=== PATIENT | male | born 1940 | race Caucasian/White ===

== ENCOUNTER 2017-12-15 09:52 | Inpatient (IN) | payer MEDICARE, SELFPAY ==
[2017-12-15 09:58] VITALS: BP 117/59; PULSE 103; RESP 16; TEMP 36.9; O2SAT 92; BMI 31.1
--- NOTE | 2017-12-15 10:17 | XR_ITS ---
XR chest 2V HISTORY: ITS.REASON: dyspnea ORDERING PHYSICIAN: Paul Carranza MD PATIENT AGE: 77 years COMPARISON: 03/20/2017 FINDINGS: The cardiomediastinal silhouette and pulmonary vascularity are within normal limits. There is chronic coarsening of the bronchovascular markings with some superimposed increased density in the right lung base consistent with atelectasis or infiltrate. In addition, there is made millimeter nodular opacity in left perihilar region posterolaterally to overlapping vessel. No acute bony anomalies. No effusions. IMPRESSION: Chronic change/COPD with right lower lobe atelectasis or infiltrate. Left perihilar nodular density which may be related to overlapping vessel and may be confirmed with follow-up
[2017-12-15 10:50] VITALS: PULSE 85; PULSE 93
[2017-12-15 12:11] LABS: Basophils # 0.1 K/mm3 (0-0.2); Basophils % 0.2 % (0.1-2.0); Eosinophils % 0.2 % (0.1-12.0); Hematocrit 37.3 % (42.0-52.0); Hemoglobin 11.4 g/dL (14.1-18.0); Lymphocytes # 1.8 K/mm3 (0.7-4.5); Lymphocytes % 7.7 K/mm3 (10-50); Mean Corpuscular HGB Conc 30.5 g/dL (31.8-35.4); Mean Corpuscular Hemoglobin 27.6 pg (27.0-31.2); Mean Corpuscular Volume 90.4 fl (80-94); Mean Platelet Volume 9.1 fl (7.4-10.4); Monocytes # 1.2 K/mm3 (0.1-1.0); Neutrophils # 20.6 K/mm3 (1.8-7.8); Neutrophils % 86.9 % (37.0-80.0); Platelet Count 338 K/mm3 (142-424); Red Blood Count 4.13 M/mm3 (4.60-6.20); White Blood Count 23.6 K/mm3 (4.8-10.8)
[2017-12-15 12:13] LABS: MANUAL DIFFERENTIAL MANUAL DIFFERENTIAL (MANUAL DIFF)
[2017-12-15 12:19] LABS: Alanine Aminotransferase 43 U/L (12-78); Albumin Level 3.2 gm/dL (3.4-5.0); Albumin/Globulin Ratio 0.8 (1.1-1.8); Alkaline Phosphatase 69 U/L (46-116); Anion Gap 15.3 mEq/L (5-15); Aspartate Amino Transferase 32 U/L (15-37); Bilirubin,Total 0.4 mg/dL (0.2-1.0); Blood Urea Nitrogen 17 mg/dL (7-18); Calcium 8.4 mg/dL (8.5-10.1); Carbon Dioxide 28 mmol/L (21.0-32.0); Chloride 105 mmol/L (98-107); Creatinine Clearance Estimated 66 mL/min (0-300); Creatinine,Serum 1.29 mg/dL (0.70-1.30); Estimated Glomerular Filt Rate 54 ml/min (>60); GFR (African American) 66 ML/MIN (>60); Globulin 3.8 gm/dl (1.3-3.2); Glucose 185 mg/dL (74-106); Potassium 3.3 mmoL/L (3.5-5.1); Sodium 145 mmol/L (136-145)
[2017-12-15 12:27] LABS: Lactic Acid 3.2 mmol/L (0.4-2.0); Reflex Lactic Add Lactic Reflex
[2017-12-15 12:34] LABS: CKMB Relative Index 0.7 U/L (0-4.0); Creatine Kinase 86 U/L (39-308); Creatine Kinase MB 0.6 mg/ml (0.0-3.6); Troponin I < 0.02 ng/ml (0.00-0.06)
[2017-12-15 12:35] LABS: Lymphocytes % 10 % (10-50); Monocytes % 5 % (2-9); Neutrophils % 84 % (42-76); Platelet Estimate Normal; RBC Morphology Normal; Total Cells Counted 100
--- NOTE | 2017-12-15 12:39 | HMH.EDSOB ---
ED Disposition Clinical Impression: Hypoxia RLL pneumonia Qualifiers: Pneumonia type: due to unspecified organism Qualified Code(s): J18.1 - Lobar pneumonia, unspecified organism Leukocytosis Qualifiers: Leukocytosis type: other Qualified Code(s): D72.828 - Other elevated white blood cell count Disposition: Admitted As Inpatient Condition on Discharge: Fair Time of Disposition: 12:39 - Critical Care Critical Care Time: No Attestation: On 12/15/17, the high probability of a clinically significant, sudden or life threatening deterioration of the following system(s) required my full and direct attention, intervention and personal management. The time I documented below is in addition to time spent performing reported procedures but includes the following listed in this critical care notation. Medical Decision Making - Medical Records Medical records reviewed: Yes: I reviewed the patient's medical records. Vital Signs: 12/15/17 09:58 12/15/17 10:50 12/15/17 13:26 Temperature 98.4 F 98.6 F Temperature Source Oral Temporal Artery Scan Pulse Rate 85 70 Pulse Rate [Right Radial] 103 H Respiratory Rate 16 18 Blood Pressure 118/70 Blood Pressure [Right Arm] 117/59 Blood Pressure Mean [Right Arm] 78 Blood Pressure Source Automatic Cuff Blood Pressure Source [Right Arm] Automatic Cuff Blood Pressure Position Sitting Blood Pressure Position [Right Arm] Sitting 02 Sat by Pulse Oximetry 92 L Oxygen Delivery Method Room Air Room Air - Lab Data Lab results reviewed: Yes: I reviewed the patient's lab results. Lab Results 12/15/17 11:50: WBC 23.6 H*, RBC 4.13 L, Hgb 11.4 L, Hct 37.3 L, MCV 90.4, MCH 27.6, MCHC 30.5 L, RDW 14.0, Plt Count 338, MPV 9.1, Neut % (Auto) 86.9 H, Lymph % (Auto) 7.7 L, [place] % (Auto) 5.0, Eos % (Auto) 0.2, Baso % (Auto) 0.2, Neut # (Auto) 20.6 H, Lymph # (Auto) 1.8, [place] # (Auto) 1.2 H, Eos # (Auto) 0.0, Baso # (Auto) 0.1, Total Counted 100, Neutrophils % (Manual) 84 H, Lymphocytes % (Manual) 10, Monocytes % (Manual) 5, Metamyelocytes % 1.0, Platelet Estimate Normal, RBC Morphology Normal 12/15/17 11:50: Sodium 145, Potassium 3.3 L, Chloride 105, Carbon Dioxide 28, Anion Gap 15.3 H, BUN 17, Creatinine 1.29, Estimated Creat Clear 66, Estimated GFR 54 L, Est GFR ( Amer) 66, Glucose 185 H, Calcium 8.4 L, Total Bilirubin 0.4, AST 32, ALT 43, Alkaline Phosphatase 69, Total Protein 7.0, Albumin 3.2 L, Globulin 3.8 H, Albumin/Globulin Ratio 0.8 L 12/15/17 11:50: Total Creatine Kinase 86, CK-MB (CK-2) 0.6, CK-MB (CK-2) Rel Index 0.7, Troponin I < 0.02 12/15/17 11:50: Lactic Acid 3.2 H Result diagrams: 12/15/17 11:50 12/15/17 11:50 Orders (Tests/Meds): ED MEDICATIONS Generic Name Dose Route Start Last Admin Trade Name Freq PRN Reason Stop Dose Admin Acetaminophen 650 mg 12/15/17 13:49 12/16/17 00:18 Acetaminophen 325mg Tab PO 01/14/18 13:48 650 mg Q4HP PRN Administration As Needed for Fever or Pain Amlodipine Besylate 5 mg 12/16/17 09:00 12/16/17 09:03 Norvasc 5mg Tablet PO 01/15/18 08:59 5 mg DAILY RITO Administration Blood Glucose Test Strips 1 each 12/15/17 16:30 12/16/17 11:46 Fsbs (Bedside Glucose), Results Only !! FS 01/14/18 16:29 1 each ACHS RITO Administration Fluticasone Propionate 2 spr 12/16/17 09:00 12/16/17 09:02 Flonase 50mcg Nasal [place] 16gm NS 01/15/18 08:59 2 spray DAILY RITO Administration Guaifenesin 200 mg 12/16/17 07:36 12/16/17 09:15 Robitussin 200mg/10ml Syrup Udc PO 01/15/18 07:35 200 mg Q4HP PRN Administration Cough Hydrochlorothiazide 25 mg 12/16/17 09:00 12/16/17 09:03 Hctz 25mg Tablet PO 01/15/18 08:59 25 mg DAILY RITO Administration Azithromycin 500 mg/ Sodium 250 mls @ 250 mls/hr 12/16/17 12:45 12/16/17 13:32 Chloride IV 12/29/17 12:44 250 mls/hr Q24H RITO Administration Protocol Ceftriaxone Sodium 1 gm/ 50 mls @ 100 mls/hr 12/16/17
[2017-12-15 13:26] VITALS: BP 118/70; PULSE 70; RESP 18; TEMP 37; O2SAT 93
[2017-12-15 13:51] VITALS: BP 120/72; PULSE 96; RESP 18; TEMP 36.9; O2SAT 94; BMI 36.4
--- NOTE | 2017-12-15 15:00 | HMH.HP ---
*Admission Date: 12/15/17 *Chief complaint: shortness of breath *History of present illness: 77 year old male presents with shortness of breath and non-productive cough that has increased over the last few days. He reports subjective temps. + sore throat. No other ENT symptoms. No GI symptoms. In the ED, he was found to be mildly hypoxic at 90% on RA. He was noted to have significant leukocytosis with WBC 23.6. CXR showed RLL pneumonia. Patient was admitted for IV antibiotics. [facility] History I have reviewed the patient's past medical history: Yes Medical History: Reports:: Diabetes Mellitus Type 2 Denies:: Cancer, Diabetes Mellitus Type 1, MRSA Amputation: No Fractures: No - *Social History Educational Level: Completed High School Smoking Status: Never smoker Alcohol Intake: never - Psychiatric History Expresses thoughts of harming self/others: None Suicide Plan Description: No Plan Review of Systems - Review of Systems Review of systems:: pertinent systems reviewed and negative unless documented below - Constitutional Reports fever(s), Reports weakness - ENT Reports sore throat - *Respiratory Reports cough, Reports shortness of breath Meds Home Medications Medication Instructions Recorded Confirmed Type Amlodipine Besylate [Norvasc 5mg 5 mg PO DAILY 12/15/17 12/15/17 History tablet] Esomeprazole Magnesium [Nexium] 20 mg PO DAILY 12/15/17 12/15/17 History Insulin Aspart [Novolog] 10 unit SQ DAILY 12/15/17 12/15/17 History Insulin Aspart [Novolog] 12 unit SQ ACHS 12/15/17 12/15/17 History Insulin Degludec [Tresiba 22 unit SQ [facility] 12/15/17 12/15/17 History Flextouch U-100] Losartan Potassium [Cozaar] 100 mg PO DAILY 12/15/17 12/15/17 History Metformin HCl [Metformin 850mg 1,000 mg PO BID 12/15/17 12/15/17 History Tablet] hydroCHLOROthiazide [HCTZ 25mg 25 mg PO DAILY 12/15/17 12/15/17 History tab] Allergies Allergy/AdvReac Type Severity Reaction Status Date / Time No Known Allergies Allergy Unverified 10/27/17 14:38 Exam Vital signs and Labs for Last 24 Hours: Temp Pulse Resp BP Pulse Ox 98.5 F 96 H 18 120/72 94 L 02/06/18 13:51 12/15/17 13:51 12/15/17 13:51 12/15/17 13:51 12/15/17 13:51 I & O for Last 24 hours: Intake & Output 12/13/17 12/14/17 12/15/17 12/16/17 11:59 11:59 11:59 11:59 Weight 219 lb 4 oz Narrative: Alert and oriented x3. Scattered rhonchi on right. Crackles RLL. Rate and rhythm regular. Trace ankle edema. Pulses 2+ bilaterally. Abdomen soft and nontender. Normoactive BS. Pharynx without erythema. No cervical LAD. Nose clear Assessment and Plan (1) Leukocytosis Current visit: Yes Status: Acute Qualifiers: Leukocytosis type: other Qualified Code(s): D72.828 - Other elevated white blood cell count Category: Medical Code(s): D72.829 - Elevated white blood cell count, unspecified (2) RLL pneumonia Current visit: Yes Status: Acute Qualifiers: Pneumonia type: due to unspecified organism Qualified Code(s): J18.1 - Lobar pneumonia, unspecified organism Category: Medical Code(s): J18.1 - Lobar pneumonia, unspecified organism (3) Diabetes Current visit: Yes Status: Chronic Qualifiers: Diabetes mellitus type: type 2 Category: Medical Code(s): E11.9 - Type 2 diabetes mellitus without complications - Assessment and plan all Dx Assessment and Plan for all problems:: Continue IV antibiotics and duonebs. Obtain sputum if able to produce. Blood cultures pending.
--- NOTE | 2017-12-15 15:05 | P.HP_ITS ---
*Admission Date: 12/15/17 *Chief complaint: shortness of breath *History of present illness: 77 year old male presents with shortness of breath and non-productive cough that has increased over the last few days. He reports subjective temps. + sore throat. No other ENT symptoms. No GI symptoms. In the ED, he was found to be mildly hypoxic at 90% on RA. He was noted to have significant leukocytosis with WBC 23.6. CXR showed RLL pneumonia. Patient was admitted for IV antibiotics. [facility] History I have reviewed the patient's past medical history: Yes Medical History: Reports:: Diabetes Mellitus Type 2 Denies:: Cancer, Diabetes Mellitus Type 1, MRSA Amputation: No Fractures: No - *Social History Educational Level: Completed High School Smoking Status: Never smoker Alcohol Intake: never - Psychiatric History Expresses thoughts of harming self/others: None Suicide Plan Description: No Plan Review of Systems - Review of Systems Review of systems:: pertinent systems reviewed and negative unless documented below - Constitutional Reports fever(s), Reports weakness - ENT Reports sore throat - *Respiratory Reports cough, Reports shortness of breath Meds Home Medications Medication Instructions Recorded Confirmed Type Amlodipine Besylate [Norvasc 5mg 5 mg PO DAILY 12/15/17 12/15/17 History tablet] Esomeprazole Magnesium [Nexium] 20 mg PO DAILY 12/15/17 12/15/17 History Insulin Aspart [Novolog] 10 unit SQ DAILY 12/15/17 12/15/17 History Insulin Aspart [Novolog] 12 unit SQ ACHS 12/15/17 12/15/17 History Insulin Degludec [Tresiba 22 unit SQ [facility] 12/15/17 12/15/17 History Flextouch U-100] Losartan Potassium [Cozaar] 100 mg PO DAILY 12/15/17 12/15/17 History Metformin HCl [Metformin 850mg 1,000 mg PO BID 12/15/17 12/15/17 History Tablet] hydroCHLOROthiazide [HCTZ 25mg 25 mg PO DAILY 12/15/17 12/15/17 History tab] Allergies Allergy/AdvReac Type Severity Reaction Status Date / Time No Known Allergies Allergy Unverified 10/27/17 14:38 Exam Vital signs and Labs for Last 24 Hours: Temp Pulse Resp BP Pulse Ox 98.5 F 96 H 18 120/72 94 L 02/06/18 13:51 12/15/17 13:51 12/15/17 13:51 12/15/17 13:51 12/15/17 13:51 I & O for Last 24 hours: Intake & Output 12/13/17 12/14/17 12/15/17 12/16/17 11:59 11:59 11:59 11:59 Weight 219 lb 4 oz Narrative: Alert and oriented x3. Scattered rhonchi on right. Crackles RLL. Rate and rhythm regular. Trace ankle edema. Pulses 2+ bilaterally. Abdomen soft and nontender. Normoactive BS. Pharynx without erythema. No cervical LAD. Nose clear Assessment and Plan (1) Leukocytosis Current visit: Yes Status: Acute Qualifiers: Leukocytosis type: other Qualified Code(s): D72.828 - Other elevated white blood cell count Category: Medical Code(s): D72.829 - Elevated white blood cell count, unspecified (2) RLL pneumonia Current visit: Yes Status: Acute Qualifiers: Pneumonia type: due to unspecified organism Qualified Code(s): J18.1 - Lobar pneumonia, unspecified organism Category: Medical Code(s): J18.1 - Lobar pneumonia, unspecified organism (3) Diabetes Current visit: Yes Status: Chronic Qualifiers: Diabetes mellitus type: type 2 Category: Medical Code(s): E11.9 - Type 2 diabetes [place]
[2017-12-15 15:17] VITALS: BP 108/51; PULSE 94; RESP 18; TEMP 37.8; O2SAT 90
[2017-12-15 15:19] LABS: CKMB Relative Index 0.8 U/L (0-4.0); Creatine Kinase 84 U/L (39-308); Creatine Kinase MB 0.7 mg/ml (0.0-3.6); Troponin I < 0.02 ng/ml (0.00-0.06)
[2017-12-15 15:32] LABS: Lactic Acid Follow Up (RFLX 1) 3.3 (0.4-2.0)
[2017-12-15 17:10] LABS: Reflex Lactic (2 hrs) Add Lactic Reflex
[2017-12-15 17:53] LABS: Lactic Acid Follow up (RFLX 2) 2.1 (0.4-2.0)
[2017-12-15 20:00] VITALS: BP 120/47; PULSE 106; RESP 22; TEMP 37.1; O2SAT 93
[2017-12-15 21:38] LABS: POC Glucose,Bedside 346 mg/dL
[2017-12-16] VITALS (10 sets, daily range): BP systolic 120–152; BP diastolic 59–77; PULSE 80–110; RESP 16–20; TEMP 36.8–38; O2SAT 90–96; BMI 36.4
--- NOTE | 2017-12-16 00:50 | PC.NURSE ---
clarified with Willy Reyes glargine instead of pt home medication Degludec flex touch which is not available at hospital. clarified with pt and spouse only takes 22 units at bedtime sq also Metformin at bedtime. Takes Novolog 12 units sq in the a.m only with metformin
--- NOTE | 2017-12-16 03:37 | PC.NURSE ---
Laying in bed resting, has slept most of night. spouse at bedside. Lungs have bilat rhonchi. Denies soa. resp even and nonlabored. Had a temp earlier of 100.4 oral. resolved with Tylenol. EMAR will need to be addressed this a.m for 0900 medications when MD rounds for home meds. Has been up several times to bathroom, tolerated well. IV is patent. Refuses to wear teds, educated on vte prophylaxis. Verified understanding. Has no needs at this time. Bed locked in low position, side rales up x 2. Call light within reach. Will Continue to monitor.
[2017-12-16 06:30] LABS: POC Glucose,Bedside 216 mg/dL
--- NOTE | 2017-12-16 07:18 | HMH.PHAVTE ---
[facility] Pharmacy VTE Monitoring - Patient Demographics Admission date: 12/15/17 Report Date: 12/16/17 (n) Time: 07:18 Allergies/Adverse Reactions: Patient Allergies No Known Allergies Allergy (Unverified 10/27/17 14:38) Height: 1.65 m Weight: 99.45 kg Patient Problems: Current Active Problems RLL pneumonia (Acute) Leukocytosis (Acute) Hypoxia (Acute) Diabetes (Chronic) - VTE Risk Labs: VTE Related Lab Results Hgb 11.4 g/dL (14.1-18.0) L 12/15/17 11:50 Hct 37.3 % (42.0-52.0) L 12/15/17 11:50 Plt Count 338 K/mm3 (142-424) 12/15/17 11:50 BUN 17 mg/dL (7-18) 12/15/17 11:50 Creatinine 1.29 mg/dL (0.70-1.30) 12/15/17 11:50 Estimated Creat Clear 66 mL/min (0-300) 12/15/17 11:50 VTE Score: 2 VTE Risk Level: Very Low Risk Clinical Trial Participant: No - Prophylaxis VTE Prophylaxis Ordered?: Yes Types of VTE Prophylaxis: TEDS Knee High
--- NOTE | 2017-12-16 07:40 | HMH.ACPN2 ---
Internal Medicine - PN: Subj *Date: 12/16/17 *Time: 07:40 Interval history: Patient complains of a dry cough overnight but otherwise feels well, has eaten well. His glucose has been high as well, expectedly given his admission with steroids. Exam Vital signs and Labs for Last 24 Hours: Temp Pulse Resp BP Pulse Ox 99.1 F 105 H 18 123/59 91 L 12/16/17 03:44 12/16/17 03:44 12/16/17 03:44 12/16/17 03:44 12/16/17 03:44 Laboratory Results - last 24 hr 12/15/17 14:20: Total Creatine Kinase 84, CK-MB (CK-2) 0.7, CK-MB (CK-2) Rel Index 0.8, Troponin I < 0.02 12/15/17 15:10: Lactic Acid Fup @ 4Hr 3.3 H 12/15/17 17:25: Lactic Acid Fup @ 2Hr 2.1 H 12/15/17 20:02: POC Glucose 346 12/16/17 06:08: POC Glucose 216 I & O for Last 24 hours: Intake & Output 12/13/17 12/14/17 12/15/17 12/16/17 11:59 11:59 11:59 11:59 Intake Total 360 / 360 Output Total 500 / 500 Balance -140 / -140 Weight 219 lb 4 oz Narrative: Patient up on the side of the bed, eating well. Some rhonchi bilaterally but otherwise good air movement. No wheezing. No crackles. No edema noted. Assessment and Plan (1) Leukocytosis Current visit: Yes Status: Acute Qualifiers: Leukocytosis type: other Qualified Code(s): D72.828 - Other elevated white blood cell count Category: Medical Code(s): D72.829 - Elevated white blood cell count, unspecified (2) RLL pneumonia Current visit: Yes Status: Acute Qualifiers: Pneumonia type: due to unspecified organism Qualified Code(s): J18.1 - Lobar pneumonia, unspecified organism Category: Medical Code(s): J18.1 - Lobar pneumonia, unspecified organism (3) Diabetes Current visit: Yes Status: Chronic Qualifiers: Diabetes mellitus type: type 2 Category: Medical Code(s): E11.9 - Type 2 diabetes mellitus without complications - Assessment and plan all Dx Assessment and Plan for all problems:: Overall improving. Restart home medications. Nasal spray and cough medicine. Possible discharge home tomorrow.
[2017-12-16 07:42] LABS: POC Glucose,Bedside 204 mg/dL
[2017-12-16 11:56] LABS: POC Glucose,Bedside 304 mg/dL
[2017-12-16 17:31] LABS: POC Glucose,Bedside 301 mg/dL
--- NOTE | 2017-12-16 18:44 | PC.NURSE ---
[PAATIENT HAS HAD A GOOD DAY. REMAINS AT BEDSIDE. PATIENT LUNGS STILL HAVE SOME RONCHI. HE HAS BEEN INDEPENDENT RINGING OUT NEEDED. NO O2 NEEDED AT THIS TIME. VSS WILL CONTINUE TO MONITOR.
[2017-12-16 20:25] LABS: POC Glucose,Bedside 251 mg/dL
[2017-12-17 03:38] VITALS: BP 151/73; PULSE 91; RESP 20; TEMP 36.7; O2SAT 93
--- NOTE | 2017-12-17 04:32 | PC.NURSE ---
PATIENT HAS BEEN SLEEPING WELL THIS SHIFT. HE CONTINUES WITH A HACKY, INTERMITTEN COUGH WITH SMALL AMOUNTS OF SPUTUM PER PATIENT REPORT. PATIENT HAS REMAINED ON ROOM AIR THIS SHIFT. HE HAS SOME MILD SOA AMBULATING TO AND FROM RESTROOM, HOWEVER NO OTHER PROBLEMS NOTED AT THIS TIME. VSS. WILL CONTINUE TO MONITOR. SAFETY MEASURES IN PLACE, CALL LIGHT IN REACH.
[2017-12-17 06:32] LABS: POC Glucose,Bedside 255 mg/dL
[2017-12-17 07:01] LABS: Basophils % 0.4 % (0.1-2.0); Eosinophils # 0.2 K/mm3 (0.0-0.4); Eosinophils % 1.7 % (0.1-12.0); Hemoglobin 10.3 g/dL (14.1-18.0); Lymphocytes # 1.8 K/mm3 (0.7-4.5); Lymphocytes % 16.4 K/mm3 (10-50); Mean Corpuscular HGB Conc 30.3 g/dL (31.8-35.4); Mean Corpuscular Hemoglobin 27.4 pg (27.0-31.2); Mean Corpuscular Volume 90.3 fl (80-94); Monocytes # 0.6 K/mm3 (0.1-1.0); Monocytes % 5.5 % (1.7-9.3); Neutrophils # 8.4 K/mm3 (1.8-7.8); Platelet Count 312 K/mm3 (142-424); Red Blood Count 3.76 M/mm3 (4.60-6.20); White Blood Count 11.1 K/mm3 (4.8-10.8)
[2017-12-17 07:26] LABS: Anion Gap 11.7 mEq/L (5-15); Blood Urea Nitrogen 18 mg/dL (7-18); Carbon Dioxide 28 mmol/L (21.0-32.0); Chloride 109 mmol/L (98-107); Creatinine Clearance Estimated 88 mL/min (0-300); Creatinine,Serum 0.81 mg/dL (0.70-1.30); Estimated Glomerular Filt Rate 93 ml/min (>60); GFR (African American) 112 ML/MIN (>60); Glucose 222 mg/dL (74-106); Potassium 3.7 mmoL/L (3.5-5.1); Sodium 145 mmol/L (136-145)
[2017-12-17 07:36] VITALS: BP 134/73; PULSE 86; RESP 20; TEMP 36.9; O2SAT 95
[2017-12-17 08:00] VITALS: PULSE 86; RESP 20; O2SAT 95
--- NOTE | 2017-12-17 09:04 | HMH.DCSUM ---
General - General Admission date: 12/15/17 Discharge date: 12/17/17 HPI HPI: 77 year old male presents with shortness of breath and non-productive cough that has increased over the last few days. He reports subjective temps. + sore throat. No other ENT symptoms. No GI symptoms. In the ED, he was found to be mildly hypoxic at 90% on RA. He was noted to have significant leukocytosis with WBC 23.6. CXR showed RLL pneumonia. Patient was admitted for IV antibiotics. Objective Vital signs: Temp Pulse Resp BP Pulse Ox 98.4 F 86 20 134/73 95 12/17/17 07:36 12/17/17 07:36 12/17/17 07:36 12/17/17 07:36 12/17/17 07:36 Narrative: Alert and oriented x3. Rate and rhythm regular. Pulses 2+ bilaterally. Lung sounds with scattered loose rhonchi. Abdomen soft and nontender. Hospital Course Hospital Course: Patient was admitted for IV antibiotics. CXR showed RLL pneumonia. He was given rocephin and zithromax infusions. He has had significant improvement of leukocytosis, WBC 11.1 this morning. He is tolerating oral intake well with no GI issues. Oxygen saturations have improved, 93% on RA today. Blood cultures are negative to date. He was unable to produce a sputum sample for culture. Overall, he feels well and is ready for discharge. Discharge home on zithromax and cefdinir. See medication reconciliation for complete list. FU in office with Carmel Gonzalez APRN in 2 days. Results Labs on day of discharge: Labs from last 24 hours 12/17/17 12/17/17 12/17/17 06:35 06:20 06:20 WBC 11.1 H D RBC 3.76 L Hgb 10.3 L Hct 34.0 L MCV 90.3 MCH 27.4 MCHC 30.3 L RDW 14.0 Plt Count 312 MPV 9.0 Neut % (Auto) 76.0 Lymph % (Auto) 16.4 [place] % (Auto) 5.5 Eos % (Auto) 1.7 Baso % (Auto) 0.4 Neut # (Auto) 8.4 H Lymph # (Auto) 1.8 [place] # (Auto) 0.6 Eos # (Auto) 0.2 Baso # (Auto) 0.0 Sodium 145 Potassium 3.7 Chloride 109 H Carbon Dioxide 28 Anion Gap 11.7 BUN 18 Creatinine 0.81 D Estimated Creat Clear 88 Estimated GFR 93 Est GFR ( Amer) 112 D Glucose 222 H POC Glucose 255 12/16/17 12/16/17 12/16/17 20:11 17:21 11:46 WBC RBC Hgb Hct MCV MCH MCHC RDW Plt Count MPV Neut % (Auto) Lymph % (Auto) [place] % (Auto) Eos % (Auto) Baso % (Auto) Neut # (Auto) Lymph # (Auto) [place] # (Auto) Eos # (Auto) Baso # (Auto) Sodium Potassium Chloride Carbon Dioxide Anion Gap BUN Creatinine Estimated Creat Clear Estimated GFR Est GFR ( Amer) Glucose POC Glucose 251 301 304 DS: Diagnosis - Discharge Diagnosis (1) Leukocytosis Status: Acute (2) RLL pneumonia Status: Acute (3) Diabetes Status: Chronic Meds Home Medications Medication Instructions Recorded Confirmed Type Amlodipine Besylate [Norvasc 5mg 5 mg PO DAILY 12/15/17 12/15/17 History tablet] Esomeprazole Magnesium [Nexium] 20 mg PO DAILY 12/15/17 12/15/17 History Insulin Aspart [Novolog] 12 unit SQ AC 12/15/17 12/16/17 History Insulin Degludec [Tresiba 22 unit SQ HS 12/15/17 12/16/17 History Flextouch U-100] Losartan Potassium [Cozaar] 100 mg PO DAILY 12/15/17 12/15/17 History hydroCHLOROthiazide [HCTZ 25mg 25 mg PO DAILY 12/15/17 12/15/17 History tab] Metformin HCl 1,000 mg PO BID 12/16/17 12/16/17 History Allergies Allergy/AdvReac Type Severity Reaction Status Date / Time No Known Allergies Allergy Unverified 10/27/17 14:38 Discharge Plan - Patient Discharge Instructions ACTIVITY: Continue current activity DIET: continue same diet - Follow up Plan Follow up with: Kelly Gonzalez APRN [Primary Care Provider] - 2 days Disposition: Home, Self-Half-Way Medications: Home Medications Medication Instructions Recorded Confirmed Type Amlodipine Besylate [Norvasc
--- NOTE | 2017-12-17 09:08 | P.DS_ITS ---
General - General Admission date: 12/15/17 Discharge date: 12/17/17 HPI HPI: 77 year old male presents with shortness of breath and non-productive cough that has increased over the last few days. He reports subjective temps. + sore throat. No other ENT symptoms. No GI symptoms. In the ED, he was found to be mildly hypoxic at 90% on RA. He was noted to have significant leukocytosis with WBC 23.6. CXR showed RLL pneumonia. Patient was admitted for IV antibiotics. Objective Vital signs: Temp Pulse Resp BP Pulse Ox 98.4 F 86 20 134/73 95 12/17/17 07:36 12/17/17 07:36 12/17/17 07:36 12/17/17 07:36 12/17/17 07:36 Narrative: Alert and oriented x3. Rate and rhythm regular. Pulses 2+ bilaterally. Lung sounds with scattered loose rhonchi. Abdomen soft and nontender. Hospital Course Hospital Course: Patient was admitted for IV antibiotics. CXR showed RLL pneumonia. He was given rocephin and zithromax infusions. He has had significant improvement of leukocytosis, WBC 11.1 this morning. He is tolerating oral intake well with no GI issues. Oxygen saturations have improved, 93% on RA today. Blood cultures are negative to date. He was unable to produce a sputum sample for culture. Overall, he feels well and is ready for discharge. Discharge home on zithromax and cefdinir. See medication reconciliation for complete list. FU in office with Carmel Gonzalez APRN in 2 days. Results Labs on day of discharge: Labs from last 24 hours 12/17/17 12/17/17 12/17/17 06:35 06:20 06:20 WBC 11.1 H D RBC 3.76 L Hgb 10.3 L Hct 34.0 L MCV 90.3 MCH 27.4 MCHC 30.3 L RDW 14.0 Plt Count 312 MPV 9.0 Neut % (Auto) 76.0 Lymph % (Auto) 16.4 [place] % (Auto) 5.5 Eos % (Auto) 1.7 Baso % (Auto) 0.4 Neut # (Auto) 8.4 H Lymph # (Auto) 1.8 [place] # (Auto) 0.6 Eos # (Auto) 0.2 Baso # (Auto) 0.0 Sodium 145 Potassium 3.7 Chloride 109 H Carbon Dioxide 28 Anion Gap 11.7 BUN 18 Creatinine 0.81 D Estimated Creat Clear 88 Estimated GFR 93 Est GFR ( Amer) 112 D Glucose 222 H POC Glucose 255 12/16/17 12/16/17 12/16/17 20:11 17:21 11:46 WBC RBC Hgb Hct MCV MCH MCHC RDW Plt Count MPV Neut % (Auto) Lymph % (Auto) [place] % (Auto) Eos % (Auto) Baso % (Auto) Neut # (Auto) Lymph # (Auto) [place] # (Auto) Eos # (Auto) Baso # (Auto) Sodium Potassium Chloride Carbon Dioxide Anion Gap BUN Creatinine Estimated Creat Clear Estimated GFR Est GFR ( Amer) Glucose POC Glucose 251 301 304 DS: Diagnosis - Discharge Diagnosis (1) Leukocytosis Status: Acute (2) RLL pneumonia Status: Acute (3) Diabetes Status: Chronic Meds Home Medications Medicat
== END 2017-12-17 10:02 | disposition home or self-care (01) | DRG 194 ==
LOC: ER 10:43 → 2ND 12:24
PROVIDERS: Nurse Practitioner Family; Admitting Provider Internal Medicine Adolescent Medicine; Emergency Provider Emergency Medicine; Family Provider Internal Medicine Adolescent Medicine; PCP Nurse Practitioner Family; Visit Provider Internal Medicine Adolescent Medicine
DX: J18.9 Pneumonia, unspecified organism (principal); J44.0 Chronic obstructive pulmonary disease with (acute) lower respiratory infection; E11.9 Type 2 diabetes mellitus without complications; R09.02 Hypoxemia; D72.829 Elevated white blood cell count, unspecified; T38.0X5A Adverse effect of glucocorticoids and synthetic analogues, initial encounter; Y92.239 Unspecified place in hospital as the place of occurrence of the external cause; Z79.4 Long term (current) use of insulin; Z79.899 Other long term (current) drug therapy
CPT/HCPCS: 36415; 71046; 80048; 80053; 82550; 82553; 82962; 83605; 84484; 85007; 85025; 87040; 93005; 93041; 94761; 96365; 99283; J0456

== ENCOUNTER → 2018-03-09 07:00 | Outpatient (CLI) | payer MEDICARE, SELFPAY ==
[2018-03-09 07:24] LABS: Basophils # 0.1 K/mm3 (0-0.2); Basophils % 0.6 % (0.1-2.0); Eosinophils # 0.2 K/mm3 (0.0-0.4); Eosinophils % 2.6 % (0.1-12.0); Hematocrit 40.1 % (42.0-52.0); Hemoglobin 12.3 g/dL (14.1-18.0); Lymphocytes # 1.9 K/mm3 (0.7-4.5); Lymphocytes % 21.3 K/mm3 (10-50); Mean Corpuscular HGB Conc 30.5 g/dL (31.8-35.4); Mean Corpuscular Hemoglobin 27.3 pg (27.0-31.2); Mean Corpuscular Volume 89.2 fl (80-94); Mean Platelet Volume 9.2 fl (7.4-10.4); Monocytes # 0.6 K/mm3 (0.1-1.0); Monocytes % 7.1 % (1.7-9.3); Neutrophils % 68.4 % (37.0-80.0); Platelet Count 367 K/mm3 (142-424); Red Cell Distribution Width 14.5 % (11.5-17.5); White Blood Count 8.7 K/mm3 (4.8-10.8)
[2018-03-09 07:44] LABS: Hemoglobin A1C 8.7 % (0.0-7.0)
[2018-03-09 08:32] LABS: Alanine Aminotransferase 31 U/L (12-78); Albumin Level 3.7 gm/dL (3.4-5.0); Albumin/Globulin Ratio 1.1 (1.1-1.8); Alkaline Phosphatase 78 U/L (46-116); Anion Gap 9.9 mEq/L (5-15); Aspartate Amino Transferase 25 U/L (15-37); Bilirubin,Total 0.4 mg/dL (0.2-1.0); Blood Urea Nitrogen 16 mg/dL (7-18); Calcium 9.5 mg/dL (8.5-10.1); Carbon Dioxide 33 mmol/L (21.0-32.0); Chloride 107 mmol/L (98-107); Chol/HDL Ratio 2.9 (1-3.5); Cholesterol 126 mg/dL (140-200); Creatinine,Serum 0.88 mg/dL (0.70-1.30); Estimated Glomerular Filt Rate 84 ml/min (>60); Ferritin 15 ng/mL (8-388); GFR (African American) 102 ML/MIN (>60); Globulin 3.4 gm/dl (1.3-3.2); Glucose 94 mg/dL (74-106); HDL Cholesterol 43 mg/dL (27-67); LDL Cholesterol 60 mg/dL (0-130); Potassium 3.9 mmoL/L (3.5-5.1); Sodium 146 mmol/L (136-145); Total Protein,Serum 7.1 gm/dL (6.4-8.2); Triglycerides 116 mg/dL (30-200); VLDL Cholesterol 23 mg/dL (0-40)
[2018-03-10 08:29] LABS: Iron 42 ug/dL (38-169); UIBC 313 ug/dL (111-343)
[2018-03-10 11:22] LABS: Creatinine, Urine 119.2 mg/dL (Not Estab.); Microalbumin, Urine 9.5 ug/mL (Not Estab.)
[2018-03-11 14:46] LABS: Iron Saturation 12 % (15-55); Vitamin B12 248 pg/mL (232-1245)
== END ==
PROVIDERS: PCP Nurse Practitioner Family; Visit Provider Nurse Practitioner Family
DX: D64.9 Anemia, unspecified (principal); E11.8 Type 2 diabetes mellitus with unspecified complications; E78.2 Mixed hyperlipidemia
CPT/HCPCS: 36415; 80053; 80061; 82043; 82570; 82607; 82728; 83036; 83550; 85025

== ENCOUNTER → 2018-07-08 08:57 | Outpatient (CLI) | payer MEDICARE, SELFPAY ==
[2018-07-08 09:34] LABS: Basophils # 0.1 K/mm3 (0-0.2); Basophils % 0.5 % (0.1-2.0); Eosinophils # 0.2 K/mm3 (0.0-0.4); Hematocrit 38.5 % (42.0-52.0); Lymphocytes # 5.6 K/mm3 (0.7-4.5); Lymphocytes % 40.1 K/mm3 (10-50); Mean Corpuscular HGB Conc 31.1 g/dL (31.8-35.4); Mean Corpuscular Hemoglobin 27.6 pg (27.0-31.2); Mean Corpuscular Volume 88.9 fl (80-94); Mean Platelet Volume 8.5 fl (7.4-10.4); Monocytes # 0.9 K/mm3 (0.1-1.0); Monocytes % 6.7 % (1.7-9.3); Neutrophils # 7.2 K/mm3 (1.8-7.8); Neutrophils % 51.6 % (37.0-80.0); Platelet Count 418 K/mm3 (142-424); Red Blood Count 4.33 M/mm3 (4.60-6.20); Red Cell Distribution Width 14.5 % (11.5-17.5); White Blood Count 13.9 K/mm3 (4.8-10.8)
[2018-07-08 12:16] LABS: Alanine Aminotransferase 41 U/L (12-78); Albumin Level 3.7 gm/dL (3.4-5.0); Albumin/Globulin Ratio 1.1 (1.1-1.8); Alkaline Phosphatase 68 U/L (46-116); Aspartate Amino Transferase 26 U/L (15-37); Bilirubin,Total 0.3 mg/dL (0.2-1.0); Blood Urea Nitrogen 25 mg/dL (7-18); Calcium 9.7 mg/dL (8.5-10.1); Carbon Dioxide 28 mmol/L (21.0-32.0); Chloride 108 mmol/L (98-107); Chol/HDL Ratio 2.5 (1-3.5); Cholesterol 108 mg/dL (140-200); Creatinine,Serum 1.15 mg/dL (0.70-1.30); Estimated Glomerular Filt Rate 62 ml/min (>60); GFR (African American) 75 ML/MIN (>60); Globulin 3.4 gm/dl (1.3-3.2); Glucose 51 mg/dL (74-106); HDL Cholesterol 43 mg/dL (27-67); LDL Cholesterol 40 mg/dL (0-130); Sodium 145 mmol/L (136-145); Total Protein,Serum 7.1 gm/dL (6.4-8.2); Triglycerides 126 mg/dL (30-200); VLDL Cholesterol 25 mg/dL (0-40)
[2018-07-09 13:14] LABS: Vitamin B12 225 pg/mL (232-1245)
== END ==
PROVIDERS: PCP Internal Medicine Adolescent Medicine; Visit Provider Nurse Practitioner Family
DX: E11.8 Type 2 diabetes mellitus with unspecified complications (principal); E78.2 Mixed hyperlipidemia; E53.8 Deficiency of other specified B group vitamins; I10 Essential (primary) hypertension; D64.9 Anemia, unspecified
CPT/HCPCS: 36415; 80053; 80061; 82607; 83036; 85025

== ENCOUNTER → 2018-11-19 07:47 | Outpatient (CLI) | payer MEDICARE, SELFPAY ==
[2018-11-19 08:30] LABS: Basophils # 0.1 K/mm3 (0-0.2); Basophils % 0.6 % (0.1-2.0); Eosinophils # 0.1 K/mm3 (0.0-0.4); Eosinophils % 1.4 % (0.1-12.0); Hematocrit 36.5 % (42.0-52.0); Hemoglobin 11.2 g/dL (14.1-18.0); Lymphocytes # 2.2 K/mm3 (0.7-4.5); Lymphocytes % 26.4 % (10-50); Mean Corpuscular HGB Conc 30.7 g/dL (31.8-35.4); Mean Corpuscular Hemoglobin 27.3 pg (27.0-31.2); Mean Platelet Volume 9.3 fl (7.4-10.4); Monocytes # 0.6 K/mm3 (0.1-1.0); Monocytes % 7.3 % (1.7-9.3); Neutrophils # 5.3 K/mm3 (1.8-7.8); Neutrophils % 64.3 % (37.0-80.0); Platelet Count 302 K/mm3 (142-424); Red Blood Count 4.11 M/mm3 (4.60-6.20); Red Cell Distribution Width 15.2 % (11.5-17.5); White Blood Count 8.2 K/mm3 (4.8-10.8)
[2018-11-19 09:24] LABS: Alanine Aminotransferase 32 U/L (12-78); Albumin Level 3.4 gm/dL (3.4-5.0); Alkaline Phosphatase 62 U/L (46-116); Anion Gap 13.9 mEq/L (5-15); Aspartate Amino Transferase 24 U/L (15-37); Bilirubin,Total 0.4 mg/dL (0.2-1.0); Blood Urea Nitrogen 19 mg/dL (7-18); Calcium 8.9 mg/dL (8.5-10.1); Carbon Dioxide 28 mmol/L (21.0-32.0); Chloride 105 mmol/L (98-107); Chol/HDL Ratio 2.7 (1-3.5); Cholesterol 114 mg/dL (140-200); Creatinine,Serum 0.96 mg/dL (0.70-1.30); Estimated Glomerular Filt Rate 76 ml/min (>60); GFR (African American) 92 ML/MIN (>60); Globulin 3.3 gm/dl (1.3-3.2); Glucose 93 mg/dL (74-106); HDL Cholesterol 43 mg/dL (27-67); LDL Cholesterol 51 mg/dL (0-130); Potassium 3.9 mmoL/L (3.5-5.1); Sodium 143 mmol/L (136-145); Total Protein,Serum 6.7 gm/dL (6.4-8.2); Triglycerides 102 mg/dL (30-200); VLDL Cholesterol 20 mg/dL (0-40)
[2018-11-19 09:33] LABS: Hemoglobin A1C 9.4 % (0.0-7.0)
[2018-11-20 22:52] LABS: Vitamin B12 942 pg/mL (232-1245)
== END ==
PROVIDERS: Visit Provider Nurse Practitioner Family
DX: E11.8 Type 2 diabetes mellitus with unspecified complications (principal); I10 Essential (primary) hypertension; E78.2 Mixed hyperlipidemia; D64.9 Anemia, unspecified; E53.8 Deficiency of other specified B group vitamins
CPT/HCPCS: 36415; 80053; 80061; 82607; 83036; 85025

== ENCOUNTER → 2019-02-18 08:38 | Outpatient (CLI) | payer MEDICARE, SELFPAY ==
[2019-02-18 08:52] LABS: Basophils % 0.4 % (0.1-2.0); Eosinophils # 0.2 K/mm3 (0.0-0.4); Eosinophils % 1.6 % (0.1-12.0); Hemoglobin 11.9 g/dL (14.1-18.0); Lymphocytes # 2.1 K/mm3 (0.7-4.5); Lymphocytes % 21.1 % (10-50); Mean Corpuscular HGB Conc 32.2 g/dL (31.8-35.4); Mean Corpuscular Hemoglobin 27.7 pg (27.0-31.2); Mean Platelet Volume 8.8 fl (7.4-10.4); Monocytes # 0.6 K/mm3 (0.1-1.0); Monocytes % 6.4 % (1.7-9.3); Neutrophils # 6.8 K/mm3 (1.8-7.8); Neutrophils % 70.4 % (37.0-80.0); Platelet Count 335 K/mm3 (142-424); Red Cell Distribution Width 15.2 % (11.5-17.5); White Blood Count 9.7 K/mm3 (4.8-10.8)
[2019-02-18 14:33] LABS: Alanine Aminotransferase 48 U/L (12-78); Albumin Level 3.3 gm/dL (3.4-5.0); Alkaline Phosphatase 65 U/L (46-116); Anion Gap 17.1 mEq/L (5-15); Aspartate Amino Transferase 32 U/L (15-37); Bilirubin,Total 0.3 mg/dL (0.2-1.0); Blood Urea Nitrogen 17 mg/dL (7-18); Calcium 8.8 mg/dL (8.5-10.1); Carbon Dioxide 26 mmol/L (21.0-32.0); Chloride 106 mmol/L (98-107); Chol/HDL Ratio 2.4 (1-3.5); Cholesterol 108 mg/dL (140-200); Creatinine,Serum 1.04 mg/dL (0.70-1.30); Estimated Glomerular Filt Rate 69 ml/min (>60); Ferritin 15 ng/mL (8-388); GFR (African American) 84 ML/MIN (>60); Globulin 3.2 gm/dl (1.3-3.2); Glucose 136 mg/dL (74-106); HDL Cholesterol 45 mg/dL (27-67); LDL Cholesterol 33 mg/dL (0-130); Potassium 4.1 mmoL/L (3.5-5.1); Sodium 145 mmol/L (136-145); Total Protein,Serum 6.5 gm/dL (6.4-8.2); Triglycerides 149 mg/dL (30-200); VLDL Cholesterol 30 mg/dL (0-40)
[2019-02-18 14:37] LABS: Hemoglobin A1C 9.6 % (0.0-7.0)
[2019-02-19 06:33] LABS: Iron 34 ug/dL (38-169); UIBC 319 ug/dL (111-343)
[2019-02-19 18:08] LABS: Folate 19.2 ng/mL (>3.0); Iron Saturation 10 % (15-55); Vitamin B12 555 pg/mL (232-1245); Vitamin D 25 Hydroxy 29.2 ng/mL (30.0-100.0)
== END ==
PROVIDERS: Visit Provider Nurse Practitioner Family
DX: D64.9 Anemia, unspecified (principal); E11.8 Type 2 diabetes mellitus with unspecified complications; E78.2 Mixed hyperlipidemia; I10 Essential (primary) hypertension; E53.8 Deficiency of other specified B group vitamins; R54 Age-related physical debility; M54.5 Low back pain; G89.29 Other chronic pain; Z79.84 Long term (current) use of oral hypoglycemic drugs
CPT/HCPCS: 36415; 80053; 80061; 82607; 82652; 82728; 82746; 83036; 83540; 83550; 85025

== ENCOUNTER → 2019-05-19 09:00 | Outpatient (CLI) | payer MEDICARE, SELFPAY ==
[2019-05-19 09:32] LABS: Basophils # 0.1 K/mm3 (0-0.2); Basophils % 0.6 % (0.1-2.0); Eosinophils # 0.1 K/mm3 (0.0-0.4); Eosinophils % 1.4 % (0.1-12.0); Hematocrit 40.1 % (42.0-52.0); Lymphocytes # 2.3 K/mm3 (0.7-4.5); Lymphocytes % 25.4 % (10-50); Mean Corpuscular HGB Conc 29.9 g/dL (31.8-35.4); Mean Corpuscular Volume 93.8 fl (80-94); Mean Platelet Volume 9.6 fl (7.4-10.4); Monocytes # 0.7 K/mm3 (0.1-1.0); Monocytes % 7.2 % (1.7-9.3); Neutrophils % 65.4 % (37.0-80.0); Platelet Count 343 K/mm3 (142-424); Red Blood Count 4.28 M/mm3 (4.60-6.20); Red Cell Distribution Width 15.3 % (11.5-17.5); White Blood Count 9.1 K/mm3 (4.8-10.8)
[2019-05-19 11:49] LABS: Hemoglobin A1C 10.1 % (0.0-7.0)
[2019-05-19 12:20] LABS: Alanine Aminotransferase 46 U/L (12-78); Albumin Level 3.2 gm/dL (3.4-5.0); Albumin/Globulin Ratio 1.1 (1.1-1.8); Alkaline Phosphatase 66 U/L (46-116); Anion Gap 13.6 mEq/L (5-15); Aspartate Amino Transferase 33 U/L (15-37); Bilirubin,Total 0.4 mg/dL (0.2-1.0); Blood Urea Nitrogen 21 mg/dL (7-18); Calcium 9.2 mg/dL (8.5-10.1); Carbon Dioxide 27 mmol/L (21.0-32.0); Chloride 107 mmol/L (98-107); Creatinine,Serum 1.07 mg/dL (0.70-1.30); Estimated Glomerular Filt Rate 67 ml/min (>60); GFR (African American) 81 ML/MIN (>60); Glucose 94 mg/dL (74-106); Potassium 4.6 mmoL/L (3.5-5.1); Sodium 143 mmol/L (136-145); Total Protein,Serum 6.2 gm/dL (6.4-8.2)
== END ==
PROVIDERS: Visit Provider Nurse Practitioner Family
DX: D64.9 Anemia, unspecified (principal); E11.8 Type 2 diabetes mellitus with unspecified complications; I10 Essential (primary) hypertension; E78.2 Mixed hyperlipidemia
CPT/HCPCS: 36415; 80053; 83036; 85025

== ENCOUNTER → 2019-09-19 09:25 | Outpatient (CLI) | payer MEDICARE, SELFPAY ==
[2019-09-19 09:51] LABS: Basophils % 0.4 % (0.1-2.0); Eosinophils # 0.1 K/mm3 (0.0-0.4); Eosinophils % 1.5 % (0.1-12.0); Hematocrit 40.1 % (42.0-52.0); Hemoglobin 12.3 g/dL (14.1-18.0); Lymphocytes # 2.4 K/mm3 (0.7-4.5); Lymphocytes % 27.4 % (10-50); Mean Corpuscular HGB Conc 30.6 g/dL (31.8-35.4); Mean Corpuscular Hemoglobin 29.2 pg (27.0-31.2); Mean Corpuscular Volume 95.3 fl (80-94); Mean Platelet Volume 9.6 fl (7.4-10.4); Monocytes # 0.6 K/mm3 (0.1-1.0); Monocytes % 6.5 % (1.7-9.3); Neutrophils # 5.5 K/mm3 (1.8-7.8); Neutrophils % 64.2 % (37.0-80.0); Platelet Count 340 K/mm3 (142-424); Red Blood Count 4.21 M/mm3 (4.60-6.20); Red Cell Distribution Width 13.4 % (11.5-17.5); White Blood Count 8.6 K/mm3 (4.8-10.8)
[2019-09-19 10:56] LABS: Alanine Aminotransferase 34 U/L (12-78); Albumin Level 3.4 gm/dL (3.4-5.0); Albumin/Globulin Ratio 1.1 (1.1-1.8); Alkaline Phosphatase 67 U/L (46-116); Anion Gap 13.1 mEq/L (5-15); Aspartate Amino Transferase 25 U/L (15-37); Bilirubin,Total 0.3 mg/dL (0.2-1.0); Blood Urea Nitrogen 17 mg/dL (7-18); Carbon Dioxide 29 mmol/L (21.0-32.0); Chloride 105 mmol/L (98-107); Chol/HDL Ratio 2.8 (1-3.5); Cholesterol 111 mg/dL (140-200); Creatinine,Serum 0.86 mg/dL (0.70-1.30); Estimated Glomerular Filt Rate 86 ml/min (>60); GFR (African American) 104 ML/MIN (>60); Globulin 3.2 gm/dl (1.3-3.2); Glucose 81 mg/dL (74-106); HDL Cholesterol 39 mg/dL (27-67); LDL Cholesterol 44 mg/dL (0-130); Potassium 4.1 mmoL/L (3.5-5.1); Sodium 143 mmol/L (136-145); Total Protein,Serum 6.6 gm/dL (6.4-8.2); Triglycerides 141 mg/dL (30-200); VLDL Cholesterol 28 mg/dL (0-40)
[2019-09-19 11:13] LABS: Hemoglobin A1C 10.4 % (0.0-7.0)
[2019-09-20 09:20] LABS: Vitamin D 25 Hydroxy 35.2 ng/mL (30.0-100.0)
[2019-09-20 10:10] LABS: Creatinine, Urine 161.3 mg/dL (Not Estab.)
== END ==
PROVIDERS: Visit Provider Nurse Practitioner Family
DX: E11.8 Type 2 diabetes mellitus with unspecified complications (principal); I10 Essential (primary) hypertension; E78.2 Mixed hyperlipidemia; E55.9 Vitamin D deficiency, unspecified; D64.9 Anemia, unspecified; Z79.4 Long term (current) use of insulin
CPT/HCPCS: 36415; 80053; 80061; 82043; 82570; 82652; 83036; 85025

== ENCOUNTER → 2020-01-21 07:35 | Outpatient (CLI) | payer MEDICARE, SELFPAY ==
[2020-01-21 08:14] LABS: Basophils % 0.2 % (0.1-2.0); Eosinophils # 0.2 K/mm3 (0.0-0.4); Eosinophils % 1.2 % (0.1-12.0); Hematocrit 36.5 % (42.0-52.0); Hemoglobin 11.9 g/dL (14.1-18.0); Lymphocytes # 2.3 K/mm3 (0.7-4.5); Lymphocytes % 16.6 % (10-50); Mean Corpuscular HGB Conc 32.7 g/dL (31.8-35.4); Mean Corpuscular Volume 88.9 fl (80-94); Mean Platelet Volume 9.2 fl (7.4-10.4); Monocytes # 0.7 K/mm3 (0.1-1.0); Monocytes % 5.4 % (1.7-9.3); Neutrophils # 10.6 K/mm3 (1.8-7.8); Neutrophils % 76.6 % (37.0-80.0); Platelet Count 299 K/mm3 (142-424); Red Blood Count 4.11 M/mm3 (4.60-6.20); Red Cell Distribution Width 14.2 % (11.5-17.5); White Blood Count 13.8 K/mm3 (4.8-10.8)
[2020-01-21 08:25] LABS: Chloride 109 mmol/L (98-107)
[2020-01-21 08:26] LABS: Potassium 3.5 mmoL/L (3.5-5.1); Sodium 140 mmol/L (136-145)
[2020-01-21 08:28] LABS: Alanine Aminotransferase 29 U/L (12-78); Albumin Level 3.7 g/dl (3.5-5.0); Albumin/Globulin Ratio 1.2 (1.1-1.8); Alkaline Phosphatase 65 U/L (38-126); Anion Gap 9.5 mEq/L (5-15); Aspartate Amino Transferase 29 U/L (17-59); Bilirubin,Total 0.3 mg/dl (0.2-1.3); Carbon Dioxide 25 mmol/L (22.0-30.0); Total Protein,Serum 6.7 g/dl (6.3-8.2)
[2020-01-21 08:29] LABS: Calcium 9.7 mg/dl (8.4-10.2); Chol/HDL Ratio 3.9 (1-3.5); Cholesterol 120 mg/dl (140-200); Glucose 95 mg/dl (74-100); HDL Cholesterol 31 mg/dl (40-60); Triglycerides 307 mg/dl (30-150); VLDL Cholesterol 61 mg/dL (0-40)
[2020-01-21 08:33] LABS: Blood Urea Nitrogen 22 mg/dl (9-20); Estimated Glomerular Filt Rate 65 ml/min (>60); GFR (African American) 78 ML/MIN (>60)
[2020-01-21 08:40] LABS: Direct LDL Cholesterol 40.68 mg/dL (100-129)
[2020-01-21 10:33] LABS: Hemoglobin A1C 9.3 % (4.0-6.0)
[2020-01-22 08:41] LABS: Creatinine, Urine 114.5 mg/dL (Not Estab.); Microalbumin, Urine <3.0 ug/mL (Not Estab.)
[2020-01-23 14:05] LABS: Vitamin D 25 Hydroxy 28.1 ng/mL (30.0-100.0)
== END ==
PROVIDERS: Visit Provider Nurse Practitioner Family
DX: D64.9 Anemia, unspecified (principal); E55.9 Vitamin D deficiency, unspecified; E11.8 Type 2 diabetes mellitus with unspecified complications; Z79.4 Long term (current) use of insulin
CPT/HCPCS: 36415; 80053; 80061; 82043; 82570; 82652; 83036; 85025

== ENCOUNTER → 2020-05-22 07:07 | Outpatient (CLI) | payer MEDICARE, SELFPAY ==
[2020-05-22 07:50] LABS: Basophils % 0.3 % (0.1-2.0); Eosinophils # 0.1 K/mm3 (0.0-0.4); Eosinophils % 0.8 % (0.1-12.0); Hematocrit 39.1 % (42.0-52.0); Lymphocytes # 2.5 K/mm3 (0.7-4.5); Lymphocytes % 16.5 % (10-50); Mean Corpuscular HGB Conc 33.2 g/dL (31.8-35.4); Mean Corpuscular Hemoglobin 31.1 pg (27.0-31.2); Mean Corpuscular Volume 93.6 fl (80-94); Mean Platelet Volume 9.4 fl (7.4-10.4); Monocytes # 0.8 K/mm3 (0.1-1.0); Monocytes % 5.3 % (1.7-9.3); Neutrophils # 11.6 K/mm3 (1.8-7.8); Neutrophils % 77.1 % (37.0-80.0); Platelet Count 344 K/mm3 (142-424); Red Blood Count 4.18 M/mm3 (4.60-6.20); Red Cell Distribution Width 14.5 % (11.5-17.5); White Blood Count 15.1 K/mm3 (4.8-10.8)
[2020-05-22 07:55] LABS: MANUAL DIFFERENTIAL MANUAL DIFFERENTIAL (MANUAL DIFF)
[2020-05-22 08:02] LABS: Hemoglobin A1C 11.4 % (4.0-6.0)
[2020-05-22 08:36] LABS: Eosinophils % 1 % (0-3); Lymphocytes % 13 % (10-50); Monocytes % 4 % (2-9); Neutrophils % 81 % (42-76); Platelet Estimate Normal; RBC Morphology Normal; Total Cells Counted 100
[2020-05-22 08:59] LABS: Chloride 104 mmol/L (98-107)
[2020-05-22 09:00] LABS: Potassium 4.3 mmoL/L (3.5-5.1); Sodium 143 mmol/L (136-145)
[2020-05-22 09:02] LABS: Alanine Aminotransferase 30 U/L (12-78); Alkaline Phosphatase 70 U/L (38-126); Anion Gap 15.3 mEq/L (5-15); Aspartate Amino Transferase 27 U/L (17-59); Bilirubin,Total 0.5 mg/dl (0.2-1.3); Blood Urea Nitrogen 25 mg/dl (9-20); Carbon Dioxide 28 mmol/L (22.0-30.0); Cholesterol 124 mg/dl (140-200); Estimated Glomerular Filt Rate 65 ml/min (>60); GFR (African American) 78 ML/MIN (>60); Triglycerides 260 mg/dl (30-150); VLDL Cholesterol 52 mg/dL (0-40)
[2020-05-22 09:03] LABS: Albumin Level 3.9 g/dl (3.5-5.0); Albumin/Globulin Ratio 1.4 (1.1-1.8); Calcium 9.7 mg/dl (8.4-10.2); Chol/HDL Ratio 3.3 (1-3.5); Globulin 2.8 g/dL (1.3-3.2); Glucose 70 mg/dl (74-100); HDL Cholesterol 38 mg/dl (40-60); Total Protein,Serum 6.7 g/dl (6.3-8.2)
[2020-05-22 09:37] LABS: Ferritin 12.6 ng/ml (17.9-464)
[2020-05-23 15:27] LABS: Vitamin B12 349 pg/mL (232-1245)
== END ==
PROVIDERS: Visit Provider Nurse Practitioner Family
DX: E11.8 Type 2 diabetes mellitus with unspecified complications (principal); E78.2 Mixed hyperlipidemia; D64.9 Anemia, unspecified
CPT/HCPCS: 36415; 80053; 80061; 82607; 82728; 83036; 85007; 85025

== ENCOUNTER → 2020-07-26 08:58 | Outpatient (CLI) | payer MEDICARE, SELFPAY ==
[2020-07-26 09:20] LABS: Basophils # 0.1 K/mm3 (0-0.2); Basophils % 0.4 % (0.1-2.0); Eosinophils # 0.1 K/mm3 (0.0-0.4); Hematocrit 42.5 % (42.0-52.0); Hemoglobin 13.6 g/dL (14.1-18.0); Lymphocytes # 2.6 K/mm3 (0.7-4.5); Lymphocytes % 19.4 % (10-50); Mean Corpuscular HGB Conc 32.1 g/dL (31.8-35.4); Mean Corpuscular Hemoglobin 30.1 pg (27.0-31.2); Mean Corpuscular Volume 93.9 fl (80-94); Mean Platelet Volume 9.1 fl (7.4-10.4); Monocytes # 0.8 K/mm3 (0.1-1.0); Monocytes % 5.9 % (1.7-9.3); Neutrophils # 9.8 K/mm3 (1.8-7.8); Neutrophils % 73.4 % (37.0-80.0); Platelet Count 397 K/mm3 (142-424); Red Blood Count 4.52 M/mm3 (4.60-6.20); Red Cell Distribution Width 13.8 % (11.5-17.5); White Blood Count 13.4 K/mm3 (4.8-10.8)
[2020-07-26 10:12] LABS: Anion Gap 14.6 mEq/L (5-15); Blood Urea Nitrogen 22 mg/dl (9-20); Calcium 9.9 mg/dl (8.4-10.2); Carbon Dioxide 28 mmol/L (22.0-30.0); Chloride 104 mmol/L (98-107); Estimated Glomerular Filt Rate 65 ml/min (>60); GFR (African American) 78 ML/MIN (>60); Glucose 243 mg/dl (74-100); Potassium 4.6 mmoL/L (3.5-5.1); Sodium 142 mmol/L (136-145)
== END ==
PROVIDERS: Visit Provider Nurse Practitioner Family
DX: D64.9 Anemia, unspecified (principal); D72.829 Elevated white blood cell count, unspecified; E11.69 Type 2 diabetes mellitus with other specified complication; Z79.4 Long term (current) use of insulin
CPT/HCPCS: 36415; 80048; 85025

== ENCOUNTER → 2020-09-20 09:31 | Outpatient (CLI) | payer MEDICARE, SELFPAY ==
[2020-09-20 10:24] LABS: Basophils # 0.1 K/mm3 (0-0.2); Basophils % 0.5 % (0.1-2.0); Eosinophils # 0.1 K/mm3 (0.0-0.4); Eosinophils % 1.2 % (0.1-12.0); Hematocrit 43.8 % (42.0-52.0); Hemoglobin 13.1 g/dL (14.1-18.0); Lymphocytes # 2.3 K/mm3 (0.7-4.5); Lymphocytes % 20.3 % (10-50); Mean Corpuscular HGB Conc 29.9 g/dL (31.8-35.4); Mean Corpuscular Hemoglobin 29.1 pg (27.0-31.2); Mean Corpuscular Volume 97.3 fl (80-94); Mean Platelet Volume 8.9 fl (7.4-10.4); Monocytes # 0.8 K/mm3 (0.1-1.0); Monocytes % 7.3 % (1.7-9.3); Neutrophils # 8.1 K/mm3 (1.8-7.8); Neutrophils % 70.7 % (37.0-80.0); Platelet Count 334 K/mm3 (142-424); Red Blood Count 4.51 M/mm3 (4.60-6.20); Red Cell Distribution Width 13.7 % (11.5-17.5); White Blood Count 11.4 K/mm3 (4.8-10.8)
[2020-09-20 11:11] LABS: Chloride 105 mmol/L (98-107); Potassium 4.9 mmoL/L (3.5-5.1); Sodium 142 mmol/L (136-145)
[2020-09-20 11:14] LABS: Alanine Aminotransferase 40 U/L (12-78); Albumin Level 4.1 g/dl (3.5-5.0); Albumin/Globulin Ratio 1.5 (1.1-1.8); Alkaline Phosphatase 69 U/L (38-126); Anion Gap 13.9 mEq/L (5-15); Aspartate Amino Transferase 41 U/L (17-59); Bilirubin,Total 0.4 mg/dl (0.2-1.3); Blood Urea Nitrogen 32 mg/dl (9-20); Calcium 9.8 mg/dl (8.4-10.2); Carbon Dioxide 28 mmol/L (22.0-30.0); Estimated Glomerular Filt Rate 53 ml/min (>60); GFR (African American) 64 ML/MIN (>60); Globulin 2.7 g/dL (1.3-3.2); Glucose 127 mg/dl (74-100); Total Protein,Serum 6.8 g/dl (6.3-8.2)
[2020-09-20 11:49] LABS: Ferritin 13.1 ng/ml (17.9-464)
[2020-09-20 12:27] LABS: Hemoglobin A1C 9.8 % (4.0-6.0)
== END ==
PROVIDERS: Visit Provider Nurse Practitioner Family
DX: E11.8 Type 2 diabetes mellitus with unspecified complications (principal); D64.9 Anemia, unspecified
CPT/HCPCS: 36415; 80053; 82728; 83036; 85025

== ENCOUNTER → 2020-12-27 08:59 | Outpatient (CLI) | payer MEDICARE, SELFPAY ==
[2020-12-27 09:54] LABS: Basophils # 0.1 K/mm3 (0-0.2); Basophils % 0.7 % (0.1-2.0); Eosinophils # 0.2 K/mm3 (0.0-0.4); Eosinophils % 1.6 % (0.1-12.0); Hematocrit 39.7 % (42.0-52.0); Hemoglobin 12.6 g/dL (14.1-18.0); Lymphocytes % 21.3 % (10-50); Mean Corpuscular HGB Conc 31.7 g/dL (31.8-35.4); Mean Corpuscular Hemoglobin 29.2 pg (27.0-31.2); Mean Platelet Volume 8.5 fl (7.4-10.4); Monocytes # 0.6 K/mm3 (0.1-1.0); Monocytes % 6.5 % (1.7-9.3); Neutrophils # 6.6 K/mm3 (1.8-7.8); Neutrophils % 70.1 % (37.0-80.0); Platelet Count 365 K/mm3 (142-424); Red Blood Count 4.31 M/mm3 (4.60-6.20); Red Cell Distribution Width 14.2 % (11.5-17.5); White Blood Count 9.4 K/mm3 (4.8-10.8)
[2020-12-27 10:10] LABS: Creatinine,Urine Random 150 mg/dL (Not Estab.); Hemoglobin A1C 10.9 % (4.0-6.0)
[2020-12-27 10:11] LABS: Microalbumin/Creatinine Ratio 8.4
[2020-12-27 10:24] LABS: Chloride 108 mmol/L (98-107); Potassium 4.1 mmoL/L (3.5-5.1); Sodium 144 mmol/L (136-145)
[2020-12-27 10:27] LABS: Alanine Aminotransferase 48 U/L (12-78); Albumin Level 3.8 g/dl (3.5-5.0); Albumin/Globulin Ratio 1.3 (1.1-1.8); Alkaline Phosphatase 68 U/L (38-126); Anion Gap 11.1 mEq/L (5-15); Aspartate Amino Transferase 50 U/L (17-59); Bilirubin,Total 0.4 mg/dl (0.2-1.3); Blood Urea Nitrogen 19 mg/dl (9-20); Carbon Dioxide 29 mmol/L (22.0-30.0); Cholesterol 142 mg/dl (140-200); Estimated Glomerular Filt Rate 72 ml/min (>60); GFR (African American) 87 ML/MIN (>60); Globulin 2.9 g/dL (1.3-3.2); Total Protein,Serum 6.7 g/dl (6.3-8.2); Triglycerides 299 mg/dl (30-150); VLDL Cholesterol 60 mg/dL (0-40)
[2020-12-27 10:28] LABS: Calcium 9.8 mg/dl (8.4-10.2); Chol/HDL Ratio 3.7 (1-3.5); Glucose 118 mg/dl (74-100); HDL Cholesterol 38 mg/dl (40-60)
[2020-12-27 10:39] LABS: Direct LDL Cholesterol 43.28 mg/dL (100-129)
== END ==
PROVIDERS: Visit Provider Nurse Practitioner Family
DX: E78.2 Mixed hyperlipidemia (principal); D64.9 Anemia, unspecified; E11.8 Type 2 diabetes mellitus with unspecified complications; Z79.4 Long term (current) use of insulin
CPT/HCPCS: 36415; 80053; 80061; 82043; 82570; 83036; 85025

== ENCOUNTER → 2021-03-25 08:43 | Outpatient (CLI) | payer MEDICARE, SELFPAY ==
[2021-03-25 09:51] LABS: Basophils % 0.5 % (0.1-2.0); Eosinophils # 0.1 K/mm3 (0.0-0.4); Eosinophils % 1.5 % (0.1-12.0); Hematocrit 42.1 % (42.0-52.0); Hemoglobin 12.7 g/dL (14.1-18.0); Lymphocytes # 1.8 K/mm3 (0.7-4.5); Lymphocytes % 20.6 % (10-50); Mean Corpuscular HGB Conc 30.1 g/dL (31.8-35.4); Mean Corpuscular Hemoglobin 28.5 pg (27.0-31.2); Mean Corpuscular Volume 94.4 fl (80-94); Mean Platelet Volume 9.1 fl (7.4-10.4); Monocytes # 0.7 K/mm3 (0.1-1.0); Monocytes % 7.9 % (1.7-9.3); Neutrophils % 69.5 % (37.0-80.0); Platelet Count 340 K/mm3 (142-424); Red Blood Count 4.46 M/mm3 (4.60-6.20); Red Cell Distribution Width 14.1 % (11.5-17.5); White Blood Count 8.6 K/mm3 (4.8-10.8)
[2021-03-25 10:06] LABS: Blood Urea Nitrogen 19 mg/dl (9-20); Calcium 9.5 mg/dl (8.4-10.2); Carbon Dioxide 27 mmol/L (22.0-30.0); Chloride 107 mmol/L (98-107); Estimated Glomerular Filt Rate 64 ml/min (>60); GFR (African American) 78 ML/MIN (>60); Glucose 155 mg/dl (74-100); Sodium 141 mmol/L (136-145)
[2021-03-25 10:24] LABS: Hemoglobin A1C 12.6 % (4.0-6.0)
== END ==
PROVIDERS: Visit Provider Nurse Practitioner Family
DX: E11.8 Type 2 diabetes mellitus with unspecified complications (principal); D64.9 Anemia, unspecified; Z79.4 Long term (current) use of insulin
CPT/HCPCS: 36415; 80048; 83036; 85025

== ENCOUNTER → 2021-06-10 08:46 | Outpatient (CLI) | payer MEDICARE, SELFPAY ==
[2021-06-10 09:37] LABS: Hemoglobin A1C 12.1 % (4.0-6.0)
[2021-06-10 10:07] LABS: Alanine Aminotransferase 32 U/L (12-78); Albumin Level 4.3 g/dl (3.5-5.0); Albumin/Globulin Ratio 1.5 (1.1-1.8); Alkaline Phosphatase 88 U/L (38-126); Anion Gap 14.1 mEq/L (5-15); Aspartate Amino Transferase 41 U/L (17-59); Bilirubin,Total 0.5 mg/dl (0.2-1.3); Blood Urea Nitrogen 27 mg/dl (9-20); Calcium 9.6 mg/dl (8.4-10.2); Carbon Dioxide 26 mmol/L (22.0-30.0); Chloride 104 mmol/L (98-107); Estimated Glomerular Filt Rate 64 ml/min (>60); GFR (African American) 78 ML/MIN (>60); Globulin 2.9 g/dL (1.3-3.2); Glucose 132 mg/dl (74-100); Potassium 4.1 mmoL/L (3.5-5.1); Sodium 140 mmol/L (136-145); Total Protein,Serum 7.2 g/dl (6.3-8.2)
[2021-06-10 10:37] LABS: Prostate Specific Ag Screen 1.4 ng/ml (0.0-4.0)
== END ==
PROVIDERS: Visit Provider Nurse Practitioner Family
DX: E11.8 Type 2 diabetes mellitus with unspecified complications (principal); R35.1 Nocturia; Z12.5 Encounter for screening for malignant neoplasm of prostate
CPT/HCPCS: 36415; 80053; 83036; G0103

== ENCOUNTER 2021-09-20 15:11 | Inpatient (IN) | payer MEDICARE, SELFPAY ==
[2021-09-20] VITALS (18 sets, daily range): BP systolic 90–168; BP diastolic 51–81; PULSE 85–138; RESP 14–38; TEMP 36.8–38.3; O2SAT 88–100; BMI 32.2; BMI 29.5; BMI 30.5
--- NOTE | 2021-09-20 15:41 | XR_ITS ---
PROCEDURE: XR CHEST 2V CLINICAL HISTORY: CONGESTION COMPARISON: CR CXR CHEST(2 VIEWS-NOT PORTABLE) from 02/05/2017 CR CXR CHEST(2 VIEWS-NOT PORTABLE) from 03/20/2017 CR CXR2V XR chest 2V from 12/15/2017 FINDINGS: The cardiomediastinal silhouette and pulmonary vascularity are within normal limits. There are slightly accentuated bronchovascular markings in the right perihilar region and right middle lobe and a minimal ill-defined pneumonic infiltrate cannot be excluded. The right upper lung field and left lung campbell are clear. There is no pleural fluid. IMPRESSION: Questionable developing pneumonic infiltrate right middle lobe Dictated by: Dr. Paul Coronado MD 09/20/2021 16:01 Dr. Paul Coronado MD in [place] 09/20/2021 16:01
[2021-09-20 16:35] LABS: Coronavirus 19, PCR Not Detected (NotDetected); Influenza A, PCR Not Detected (NotDetected); Influenza B, PCR Not Detected (NotDetected)
[2021-09-20 17:13] LABS: Basophils # 0.2 K/mm3 (0-0.2); Basophils % 0.7 % (0.1-2.0); Eosinophils # 0.1 K/mm3 (0.0-0.4); Eosinophils % 0.6 % (0.1-12.0); Hematocrit 47.6 % (42.0-52.0); Hemoglobin 14.4 g/dL (14.1-18.0); Lymphocytes # 4.7 K/mm3 (0.7-4.5); Lymphocytes % 22.8 % (10-50); Mean Corpuscular HGB Conc 30.3 g/dL (31.8-35.4); Mean Corpuscular Hemoglobin 30.5 pg (27.0-31.2); Mean Corpuscular Volume 100.7 fl (80-94); Mean Platelet Volume 9.9 fl (7.4-10.4); Monocytes # 0.7 K/mm3 (0.1-1.0); Monocytes % 3.2 % (1.7-9.3); Neutrophils # 14.9 K/mm3 (1.8-7.8); Neutrophils % 72.7 % (37.0-80.0); Platelet Count 391 K/mm3 (142-424); Red Blood Count 4.73 M/mm3 (4.60-6.20); Red Cell Distribution Width 14.2 % (11.5-17.5); White Blood Count 20.5 K/mm3 (4.8-10.8)
[2021-09-20 17:19] LABS: Chloride 105 mmol/L (98-107); Potassium 4.1 mmoL/L (3.5-5.1); Sodium 137 mmol/L (136-145)
[2021-09-20 17:22] LABS: Alanine Aminotransferase 34 U/L (12-78); Albumin Level 4.2 g/dl (3.5-5.0); Albumin/Globulin Ratio 1.3 (1.1-1.8); Alkaline Phosphatase 100 U/L (38-126); Anion Gap 22.1 mEq/L (5-15); Aspartate Amino Transferase 46 U/L (17-59); Bilirubin,Total 0.4 mg/dl (0.2-1.3); Blood Urea Nitrogen 24 mg/dl (9-20); Calcium 9.4 mg/dl (8.4-10.2); Carbon Dioxide 14 mmol/L (22.0-30.0); Creatinine Clearance Estimated 58 mL/min (50-200); Estimated Glomerular Filt Rate 53 ml/min (>60); GFR (African American) 64 ML/MIN (>60); Globulin 3.2 g/dL (1.3-3.2); Glucose 395 mg/dl (74-100); Lactic Acid 4.5 mmol/L (0.7-2.1); MANUAL DIFFERENTIAL MANUAL DIFFERENTIAL (MANUAL DIFF); Total Protein,Serum 7.4 g/dl (6.3-8.2)
--- NOTE | 2021-09-20 17:25 | PC.NURSE ---
Pt currently projectile vomiting and becoming hypoxic. Unable to maintain a patent airway. MD has recommended intubation at this time. at bedside and agreeable.
[2021-09-20 17:32] LABS: NT Pro Brain Natriuretic Pep. 117 pg/mL (0-450)
[2021-09-20 17:37] LABS: Lymphocytes % 26 % (10-50); Monocytes % 5 % (2-9); Neutrophils % 69 % (42-76); Platelet Estimate Normal; Total Cells Counted 100
[2021-09-20 17:38] LABS: Macrocytosis 1+
--- NOTE | 2021-09-20 18:19 | XR_ITS ---
PROCEDURE INFORMATION: Exam: XR Chest Exam date and time: 09/20/2021 6:19 PM Age: 81 years old Clinical indication: Device placement; Ett placement (vent status); Additional info: Post intubation TECHNIQUE: Imaging protocol: XR of the chest. AP portable supine exam 6:29 p.m. Views: 1 view. COMPARISON: CR XR CHEST 2V 09/20/2021 3:45 PM FINDINGS: Tubes, catheters and devices: An endotracheal tube has been inserted, tip approximately 2.5 cm above the myesha. An enteric tube has been inserted, the tube appears to extend below the diaphragm but the tip is not well seen on this exam. A new right jugular central venous catheter, tip in satisfactory position at the upper cavoatrial junction. Lungs: Significantly increased perihilar and lower pulmonary airspace disease compared with the earlier exam from 3:45 p.m., with worsening pulmonary consolidations. Normal lung volumes. Pleural spaces: Unremarkable. No significant pleural effusion. No pneumothorax. 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 Borderline enlarged cardiac silhouette, but this is accentuated by portable AP technique. Bones/joints: There are spinal degenerative changes, with multilevel disc narrrowing and spondylosis. Bilateral acromioclavicular arthritis. IMPRESSION: 1. Multiple new support lines as detailed above. 2. Significantly worsened perihilar and lower pulmonary consolidations compared with the earlier exam from 3:45 p.m., correlate for edema or pneumonia.
--- NOTE | 2021-09-20 18:25 | CT_ITS ---
PROCEDURE INFORMATION: Exam: CT Abdomen And Pelvis Without Contrast Exam date and time: 09/20/2021 6:25 PM Age: 81 years old Clinical indication: Vomiting and other: On vent resp failure; Additional info: Vomiting resp failure on vent TECHNIQUE: Imaging protocol: Computed tomography of the abdomen and pelvis without contrast. Radiation optimization: All CT scans at this facility use at least one of these dose optimization techniques: automated exposure control; mA and/or kV adjustment per patient size (includes targeted exams where dose is matched to clinical indication); or iterative reconstruction. COMPARISON: CT CHEST WO CON 09/20/2021 7:07 PM FINDINGS: Tubes, catheters and devices: Enteric tube tip and side port are located in the upper stomach. Liver: No hepatomegaly. Calcified hepatic granulomas. No mass, as visualized. Streak artifacts. Gallbladder and bile ducts: The gallbladder is normal. Pancreas: Mild fatty infiltrative changes of the pancreas, likely age related. A few punctate calcifications in the pancreas which could be vascular calcifications versus history of chronic pancreatitis. No ductal dilatation. No acute findings. Spleen: The spleen is normal. Adrenal glands: The adrenal glands are normal. Kidneys and ureters: Bilateral perinephric soft tissue stranding. No hydronephrosis, hydroureter, or obstructing calcified stones. Renal vascular calcifications. Stomach and bowel: Diverticulosis coli; no focal inflammation, pericolic fluid or extraluminal gas bubbles to confirm acute diverticulitis. The transverse, descending and upper sigmoid colon are empty and contracted which may account for thickened appearance, but differential would be colitis. The rectum is moderately distended with fecal material, measuring 5-6 cm diameter, correlate for constipation or rectal fecal impaction, see sagittal series 1002, image 56. There is no evidence of intestinal perforation or obstruction. No acute findings in the stomach. Appendix: A normal appendix is identified. Intraperitoneal space: There is no significant free intraperitoneal fluid. There is no free intraperitoneal air. Vasculature: There is no aortic aneurysm.The vasculature demonstrates scattered mild atherosclerotic calcification. No portal venous gas. Lymph nodes: No significantly enlarged lymph nodes by short axis criteria. Urinary bladder: The bladder is normal. Reproductive: Minimal prostate calcification. No significant prostate enlargement. Seminal vesicles are unremarkable. Bones/joints: There are spinal degenerative changes, with multilevel disc narrrowing and spondylosis. Bilateral sacroiliitis with partial ankylosis of joints.There is no evidence of acute fracture. Soft tissues: A multilobulated fatty periumbilical hernia, no herniated bowel loops or edema fluid seen in the hernia.There are no soft tissue masses or fluid collections. Other findings: For chest findings, please see the chest CT report. IMPRESSION: 1. Diverticulosis coli greatest in the left lower quadrant, but no focal pericolic fluid or extraluminal gas bubbles to confirm acute diverticulitis. 2. Transverse, descending and upper sigmoid colon are empty and contracted which may account for thickened appearance, differential would be colitis. 3. The rectum is distended with fecal material, up to 5-6 cm, possible constipation/mild rectal fecal impaction. 4. There is no evidence of intestinal perforation or obstruction. 5. Additional nonemergency and chronic findings as above.
--- NOTE | 2021-09-20 18:25 | CT_ITS ---
PROCEDURE INFORMATION: Exam: CT Chest Without Contrast; Diagnostic Exam date and time: 09/20/2021 6:25 PM Age: 81 years old Clinical indication: Other: Intubated resp failure vomiting; Additional info: Vomiting intubated resp failure TECHNIQUE: Imaging protocol: Diagnostic computed tomography of the chest without contrast. Radiation optimization: All CT scans at this facility use at least one of these dose optimization techniques: automated exposure control; mA and/or kV adjustment per patient size (includes targeted exams where dose is matched to clinical indication); or iterative reconstruction. COMPARISON: CR XR CHEST PORTABLE 09/20/2021 6:25 PM FINDINGS: Tubes, catheters and devices: Endotracheal tube tip has advanced compared with the earlier portable chest x-ray, and now lies at the level of the myesha and directed slightly into the right mainstem bronchus, see coronal image 76. Recommend retracting this 2-3 cm. Right jugular central venous catheter tip is at the upper cavoatrial junction in satisfactory position. Enteric catheter extends into the stomach, with the tip at the gastric fundus and side port located below the diaphragm in the stomach, in satisfactory position. Lungs: Patchy lobulated bilateral pulmonary consolidations, greatest in the perihilar regions and lower lobes. As these appear significantly increased compared with the chest x-ray earlier today at 3:45 p.m., this argues in favor of acute pulmonary edema, though there may be underlying pneumonia. Aspiration pneumonitis would also be a consideration, given the history of vomiting. No definite mass, lesions could easily be obscured within consolidations. Pleural spaces: Unremarkable. No significant pleural effusion. No pneumothorax. Heart: Borderline cardiomegaly. Trace pericardial effusion. Multiple coronary artery calcifications. Aorta: There is no aortic aneurysm. Multiple calcified atherosclerotic plaques. Lymph nodes: A few slightly enlarged right paratracheal and subcarinal nodes, up to 11 mm short axis diameter. Question a few small right hilar nodes, not well evaluated on this nonenhanced study. No significant axillary adenopathy. Bones/joints: There are spinal degenerative changes, with multilevel disc narrrowing and spondylosis.There is no evidence of acute fracture. Soft tissues: There are no soft tissue masses or fluid collections. Mild soft tissue edema in the anterior upper right chest. IMPRESSION: 1. Endotracheal tube tip has advanced compared with the earlier portable chest x-ray, and now lies at the level of the myesha directed slightly into the right mainstem bronchus. Recommend retracting 2-3 cm and recheck. 2. Other support lines in satisfactory position, as above. 3. Prominent lobulated bilateral perihilar and lower pulmonary consolidations, this is most likely pulmonary edema, though aspiration pneumonitis or pneumonia remain considerations. 4. No pleural effusion or pneumothorax. 5. Borderline cardiomegaly. Coronary artery disease. Trace pericardial effusion. 6. Mild mediastinal adenopathy. 7. Additional nonemergency and chronic findings as above.
--- NOTE | 2021-09-20 18:29 | PC.NURSE ---
Dr Rankin speaking with Dr Mullins
--- NOTE | 2021-09-20 18:31 | [facility]H.EDGENADL ---
ED Disposition Clinical Impression: Hypoxia, Acute respiratory failure with hypoxia, Septic shock Community acquired pneumonia Qualifiers: Laterality: right Lung location: lower lobe of lung Qualified Code(s): J18.9 - Pneumonia, unspecified organism Disposition: Admitted As Inpatient Condition on Discharge: Critical Referrals: Kelly Gonzalez APRN [Primary Care Provider] - - Critical Care Critical Care Time: Yes Attestation: On 09/20/21, the high probability of a clinically significant, sudden or life threatening deterioration of the following system(s) required my full and direct attention, intervention and personal management. The time I documented below is in addition to time spent performing reported procedures but includes the following listed in this critical care notation. Total Critical Care Time: 45 Vital system(s) involved:: Circulatory Failure, Central Nervous System, Metabolic Failure, Respiratory Failure, Shock (Septic) My critical care processes included: Assessment & monitoring of V/S, Initial and Re-exams, Data Review/Interpretation, Coordinating Care, Medication Orders and management, Documentation Medical Decision Making - Medical Records Medical records reviewed: Yes: I reviewed the patient's medical records. - [place] Inquiry Pt receiving controlled substance: No Vital Signs: 09/20/21 15:30 09/20/21 16:09 09/20/21 18:10 Temperature 98.2 F 98.8 F Temperature Source Oral Oral Pulse Rate [Right Brachial] 91 H 85 Respiratory Rate 21 20 14 Blood Pressure [Right Arm] 104/67 L 149/78 H Blood Pressure Mean [Right Arm] 79 101 Blood Pressure Source [Right Arm] Automatic Cuff Automatic Cuff Blood Pressure Position [Right Arm] Sitting Sitting 02 Sat by Pulse Oximetry 90 L 89 L 100 Oxygen Delivery Method Room Air Room Air - Lab Data Lab Results 09/20/21 16:05: SARS-CoV-2 (PCR) Not detected, Influenza A Untype (PCR) Not detected, Influenza Type B (PCR) Not detected 09/20/21 17:00: WBC 20.5 H*, RBC 4.73, Hgb 14.4, Hct 47.6, MCV 100.7 H, MCH 30.5, MCHC 30.3 L, RDW 14.2, Plt Count 391, MPV 9.9, Neut % (Auto) 72.7, Lymph % (Auto) 22.8, [place] % (Auto) 3.2, Eos % (Auto) 0.6, Baso % (Auto) 0.7, Neut # (Auto) 14.9 H, Lymph # (Auto) 4.7 H, [place] # (Auto) 0.7, Eos # (Auto) 0.1, Baso # (Auto) 0.2, Total Counted 100, Neutrophils % (Manual) 69, Lymphocytes % (Manual) 26, Monocytes % (Manual) 5, Platelet Estimate Normal, Macrocytosis 1+ 09/20/21 17:00: Sodium 137, Potassium 4.1, Chloride 105, Carbon Dioxide 14 L, Anion Gap 22.1 H, BUN 24 H, Creatinine 1.30 H, Estimated Creat Clear 58, Estimated GFR 53 L, Est GFR ( Amer) 64, Glucose 395 H, Calcium 9.4, Total Bilirubin 0.4, AST 46, ALT 34, Alkaline Phosphatase 100, NT-Pro-B Natriuret Pep 117, Total Protein 7.4, Albumin 4.2, Globulin 3.2, Albumin/Globulin Ratio 1.3 09/20/21 17:00: Lactate 4.5 H Result diagrams: 09/20/21 17:00 09/20/21 17:00 Orders (Tests/Meds): ED MEDICATIONS Generic Name Dose Route Start Last Admin Trade Name Freq PRN Reason Stop Dose Admin Sodium Chloride 1,000 mls @ 999 mls/hr 09/20/21 17:30 Sod Chlor 0.9% 1000ml Bag IV 09/20/21 18:30 .Q1H1M RITO Sodium Chloride 2,120 mls @ 1,060 mls/hr 09/20/21 17:22 Sod Chlor 0.9% 1000ml Bag 30 ml/kg infuse over 2 hr (2120 ml) 09/20/21 19:21 IV .Q2H ONE Piperacillin Sod/Tazobactam 100 mls @ 200 mls/hr 09/20/21 17:30 Sod 4.5 gm/ Sodium Chloride IV 10/04/21 17:29 Q8H RIOT Miscellaneous 1 each 09/20/21 17:30 Vancomycin Consult Request * 10/20/21 17:29 CONSULT PHARMACY RITO Discontinued Medications Generic Name Dose Route Start Last Admin Trade Name Freq PRN Reason Stop Dose Admin Promethazine HCl 12.5 mg 09/20/21 17:14 Promethazine Hcl 25mg/Ml 1ml Vial IV 09/20/21 17:15 ONCE ONE Sodium Chloride 25 ml 09/20/21 17:14 Sodium Chloride 0.9% 25ml Bag IV 09/20/21 17:15 ONCE ONE ORDERS Category Date Time Sta
[2021-09-20 18:33] LABS: ABG Base Excess -9.4 mmol/L (-2.4-2.3); ABG HCO3 18.8 mmhg (22.0-26.0); ABG Oxygen Saturation 89 % (90-100); ABG PO2 72.3 mmhg (80-100); ABG TCO2 20.4 mmhg (23-27)
[2021-09-20 18:34] LABS: Oxygen 60 %
[2021-09-20 18:35] LABS: Allen's Test Acceptable; PEEP 8; Source Left Brachial; Tidal Volume 480; Vent Rate 14
[2021-09-20 18:37] LABS: ABG PH 7.19 mmol/L (7.35-7.45)
[2021-09-20 18:38] LABS: ABG PCO2 50.9 mmhg (35.0-45.0)
[2021-09-20 18:39] LABS: Troponin I < 0.01 ng/ml (0.00-0.034)
--- NOTE | 2021-09-20 18:50 | PC.NURSE ---
Current vent settings: FiO2 60 TV 450 RR 14 Peep 8
--- NOTE | 2021-09-20 18:54 | PC.NURSE ---
Intubation Process: 1755 10mg Etomidate administered IV 1756 100mg Rocuronium IV and ET tube placed 1757 Pt suctioned 7.5 ET tube placed at 24 at the lip, verified with CXR 1804 NG placed-60 at right nare 1820 Central line placed in right neck by
--- NOTE | 2021-09-20 19:04 | PC.NURSE ---
Pt to CT at this time
--- NOTE | 2021-09-20 19:59 | PC.NURSE ---
called night-watch @ 1950, s/w anson and he stated loading dose of 1500mg and then 1250mg q18 hr.
[2021-09-20 20:03] LABS: Microscopic, Urine URINE MICROSCOPIC (MICROSCOPIC)
--- NOTE | 2021-09-20 20:04 | PC.NURSE ---
Fentanyl drip titrated to 2.2ml/hr due to rass as ordered by MD.
[2021-09-20 20:17] LABS: Appearance,Urine CLEAR (Clear); Bilirubin,Urine Negative (Negative); Blood, Urine 1+ (Negative); Color,Urine YELLOW (Yellow); Glucose,Urine (UA) 3+ (Negative); Ketones,Urine Negative (Negative); Leukocyte Esterase,Urine Negative (Negative); Nitrate,Urine Negative (Negative); PH,Urine 5.5 (5.0-8.5); Protein,Urine Negative (Negative); Urobilinogen,Urine 0.2 EU/dl (0.2)
--- NOTE | 2021-09-20 20:21 | PC.NURSE ---
transferring pt to [facility] with respiratory, 2 RN's and tech at bedside.
--- NOTE | 2021-09-20 20:22 | PC.NURSE ---
patient up to floor via stretcher @ this time.
[2021-09-20 20:24] LABS: Troponin I 0.03 ng/ml (0.00-0.034)
[2021-09-20 20:24] LABS: Mucus,Urine Trace /lpf; Squamous Epithelial Cell,Urine Occasional #/hpf (0-5); WBC,Urine Occasional #/hpf (0-3)
--- NOTE | 2021-09-20 21:06 | XR_ITS ---
PROCEDURE INFORMATION: Exam: XR Chest Exam date and time: 09/20/2021 9:06 PM Age: 81 years old Clinical indication: Device placement; Ett placement (vent status); Additional info: Et tube placement recheck after tube adjustment TECHNIQUE: Imaging protocol: XR of the chest. Portable AP supine exam 9:29 p.m. Views: 1 view. COMPARISON: CT CHEST WO CON 09/20/2021 7:07 PM FINDINGS: Tubes, catheters and devices: Endotracheal tube has been retracted from the origin of the mainstem bronchus since the earlier CT, tip projected approximately 5 cm above the myesha on this follow-up exam, at the approximate T4 level. Right jugular central venous catheter unchanged with tip at the upper cavoatrial junction. Enteric catheter again noted, with the side port below the diaphragm and distal tip extending into the abdomen not imaged on this chest x-ray. Lungs: There is improved aeration of of both lungs compared with the earlier portable chest x-ray from 6:25 p.m.. Persistent patchy consolidations and subsegmental atelectasis in the lower lungs. Lungs are well inflated. Pleural spaces: Unremarkable. No significant pleural effusion. No pneumothorax. Heart/Mediastinum: Enlarged cardiac silhouette. Bones/joints: Spinal degenerative changes. No acute fractures, as visualized. IMPRESSION: 1. Endotracheal tube tip has been retracted, and now lies approximately 5 cm above the myesha at the T4 level, in satisfactory position. 2. Improved aeration of both lungs compared with the earlier portable exam from 6:25 p.m. with some persistent patchy consolidations and subsegmental atelectasis in the lower lungs. 3. Additional nonemergency and chronic findings as above.
[2021-09-20 21:10] LABS: Reflex Lactic Add Lactic Reflex
[2021-09-20 21:38] LABS: POC Glucose,Bedside 322 (70-110)
[2021-09-20 21:45] LABS: Lactic Acid Follow Up (RFLX 1) 1.5 mmol/L (0.7-2.1)
[2021-09-20 22:58] LABS: Troponin I 0.06 ng/ml (0.00-0.034)
[2021-09-21] VITALS (31 sets, daily range): BP systolic 85–140; BP diastolic 53–73; PULSE 14–120; RESP 0–20; TEMP 37.1–38.3; O2SAT 50–97; BMI 30.5
--- NOTE | 2021-09-21 03:34 | PC.NURSE ---
Spoke with radiologist MD Daigle @ 2043. Stated that ETT was extending in upper main bronchus and to retract it 2-3 cm. RT was notified. Orders carried out via RT. ETT is currently 23 cm @ teeth. MD Mullins was notified @ 2006 of pt tachycardic and restless. New orders received to place pt on propofol in addition to fentanyl. Orders carried out. MD Mullins was also notified @ 35 for hypotension and troponin level. New orders received to place pt on Levophed and albuterol breathing Tx Q6. Pt is currently on Propofol @ 20 mcg/kg/min. Fentanyl @ 40 mcg/hr. Levophed @ 6 mcg/min. NS @ 100 ml/hr. Vent settings are as follows: AC, FiO2 60, TV 450, R 14, PEEP 8. ETT 7.5. NG to (R) nare @ 60 cm. RIJ triple lumen and 20 (R) wrist patent. Pt turned and repositioned. Suctioning performed. Moderate, thick, cream color mucus noted with each suction. VSS at this time. Pt has been tachycardic often. No other concerns. Will continue to monitor.
[2021-09-21 06:38] LABS: Alanine Aminotransferase 23 U/L (12-78); Albumin/Globulin Ratio 1.1 (1.1-1.8); Alkaline Phosphatase 71 U/L (38-126); Anion Gap 12.7 mEq/L (5-15); Aspartate Amino Transferase 31 U/L (17-59); Basophils # 0.1 K/mm3 (0-0.2); Basophils % 0.4 % (0.1-2.0); Bilirubin,Total 0.5 mg/dl (0.2-1.3); Blood Urea Nitrogen 27 mg/dl (9-20); Carbon Dioxide 21 mmol/L (22.0-30.0); Chloride 111 mmol/L (98-107); Creatinine Clearance Estimated 52 mL/min (50-200); Estimated Glomerular Filt Rate 45 ml/min (>60); GFR (African American) 54 ML/MIN (>60); Globulin 2.8 g/dL (1.3-3.2); Glucose 328 mg/dl (74-100); Lymphocytes % 4.7 % (10-50); Neutrophils % 90.2 % (37.0-80.0); Potassium 3.7 mmoL/L (3.5-5.1); Sodium 141 mmol/L (136-145); Total Protein,Serum 5.8 g/dl (6.3-8.2)
[2021-09-21 06:45] LABS: Hematocrit 37.9 % (42.0-52.0); Lymphocytes # 1.4 K/mm3 (0.7-4.5); Mean Corpuscular HGB Conc 30.6 g/dL (31.8-35.4); Mean Corpuscular Hemoglobin 30.2 pg (27.0-31.2); Mean Corpuscular Volume 98.9 fl (80-94); Mean Platelet Volume 10.4 fl (7.4-10.4); Monocytes # 1.5 K/mm3 (0.1-1.0); Monocytes % 4.8 % (1.7-9.3); Neutrophils # 27.6 K/mm3 (1.8-7.8); Platelet Count 300 K/mm3 (142-424); Red Blood Count 3.84 M/mm3 (4.60-6.20); Red Cell Distribution Width 14.4 % (11.5-17.5); White Blood Count 30.6 K/mm3 (4.8-10.8)
[2021-09-21 06:46] LABS: Hemoglobin 11.6 g/dL (14.1-18.0)
[2021-09-21 06:47] LABS: MANUAL DIFFERENTIAL MANUAL DIFFERENTIAL (MANUAL DIFF)
[2021-09-21 06:48] LABS: Hypochromasia 1+; Lymphocytes % 5 % (10-50); Macrocytosis 1+; Monocytes % 3 % (2-9); Neutrophils % 74 % (42-76); Platelet Estimate Normal; Total Cells Counted 100
[2021-09-21 07:53] LABS: ABG Base Excess -7.9 mmol/L (-2.4-2.3); ABG HCO3 18.9 mmhg (22.0-26.0); ABG Oxygen Saturation 97 % (90-100); ABG PH 7.27 mmol/L (7.35-7.45); ABG PO2 105.7 mmhg (80-100); ABG TCO2 20.2 mmhg (23-27)
[2021-09-21 07:59] LABS: Allen's Test Patient Unable; Oxygen 50 %; PEEP 8; Source Left Radial; Tidal Volume 450; Vent Rate 14
--- NOTE | 2021-09-21 08:14 | HMH.HP ---
*Admission Date: 09/21/21 *Chief complaint: Cough, congestion, fever, vomiting *History of present illness: 81-year-old white male with insulin requiring diabetes, obesity, poor medical compliance who presented to the emergency department at the behest of his after having 2 days of sickness with coughing, congestion, and some heartburn symptomatology who was febrile, with some clouding of consciousness, presented to the emergency department. ER work-up showed evidence of multilobar pneumonia, patient was vomiting and quickly decompensated with evidence of sepsis, with leukocytosis, high lactate levels, and tachycardia. Because of his vomiting, mental status changes and multilobar pneumonia he was intubated for airway protection and his worsening respiratory acidosis. Tolerated this well was transferred to the ICU in good condition. Currently patient is in the ICU intubated, ventilated. is at bedside. [facility] History I have reviewed the patient's past medical history: Yes Medical History: Reports:: Diabetes Mellitus Type 2, Hyperlipidemia, Hypertension Denies:: Cancer, Diabetes Mellitus Type 1, MRSA *Have you ever received a pneumonia vaccine?: Yes *Have you received a flu vaccine this season?: No Other Medical History: Reports: Arthritis Other Surgeries: Yes: Colonoscopy Amputation: No Fractures: No - *Social History Smoking Status: Never smoker Tobacco Type: cigarettes Alcohol Intake: never *Occupational Status:: retired Housing: house Household Members: spouse *Travel in the last 8 weeks: None Family Hx:: Cancer, Diabetes, Hyperlipidemia, Hypertension Review of Systems - Review of Systems Review of systems:: unable to obtain - *Neurologic Denies headache(s) Meds Home Medications Medication Instructions Recorded Confirmed Type Esomeprazole Magnesium [Nexium] 20 mg PO DAILY 12/15/17 09/20/21 History Insulin Aspart [Novolog] 12 unit SQ AC 12/15/17 09/20/21 History Insulin Degludec [Tresiba 22 unit SQ HS 12/15/17 09/20/21 History Flextouch U-100] Losartan Potassium [Cozaar 100mg 100 mg PO DAILY 12/15/17 09/20/21 History Tablets] hydroCHLOROthiazide [HCTZ 25mg 25 mg PO DAILY 12/15/17 09/20/21 History tab] Metformin HCl 500 mg PO DAILY 12/16/17 09/20/21 History Atorvastatin Calcium [Lipitor 40mg 40 mg PO HS 09/20/21 09/20/21 History Tab] Empagliflozin [Jardiance] 25 mg PO DAILY 09/20/21 09/20/21 History Sitagliptin Phosphate [Januvia 100 mg PO DAILY 09/20/21 09/20/21 History 100mg tablet] Allergies Allergy/AdvReac Type Severity Reaction Status Date / Time No Known Allergies Allergy Verified 09/20/21 15:48 Exam Vital signs and Labs for Last 24 Hours: Temp Pulse Resp BP Pulse Ox 99.1 F 97 H 18 104/59 L 95 09/21/21 07:00 09/21/21 07:00 09/21/21 07:00 09/21/21 07:00 09/21/21 07:00 Laboratory Results - last 24 hr 09/20/21 16:05: SARS-CoV-2 (PCR) Not detected, Influenza A Untype (PCR) Not detected, Influenza Type B (PCR) Not detected 09/20/21 17:00: WBC 20.5 H*, RBC 4.73, Hgb 14.4, Hct 47.6, MCV 100.7 H, MCH 30.5, MCHC 30.3 L, RDW 14.2, Plt Count 391, MPV 9.9, Neut % (Auto) 72.7, Lymph % (Auto) 22.8, [place] % (Auto) 3.2, Eos % (Auto) 0.6, Baso % (Auto) 0.7, Neut # (Auto) 14.9 H, Lymph # (Auto) 4.7 H, [place] # (Auto) 0.7, Eos # (Auto) 0.1, Baso # (Auto) 0.2, Total Counted 100, Neutrophils % (Manual) 69, Lymphocytes % (Manual) 26, Monocytes % (Manual) 5, Platelet Estimate Normal, Macrocytosis 1+ 09/20/21 17:00: Sodium 137, Potassium 4.1, Chloride 105, Carbon Dioxide 14 L, Anion Gap 22.1 H, BUN 24 H, Creatinine 1.30 H, Estimated Creat Clear 58, Estimated GFR 53 L, Est GFR ( Amer) 64, Glucose 395 H, Calcium 9.4, Total Bilirubin 0.4, AST 46, ALT 34, Alkaline Phosphatase 100, Troponin I < 0.01, NT-Pro-B Natriuret Pep 117, Total Protein 7.4, Albumin 4.2, Globulin 3.2, Albumin/Globulin Ratio 1.3 09/20/21 17:00: Lactate 4.5 H 09/20/21 17:03: Specimen Source Left brachia
--- NOTE | 2021-09-21 08:53 | HMH.PHACONS ---
- Pharmacy Consult Date: 09/21/21 Time: 08:53 Referring provider: LEA Reason for Consult:: VANCOMYCIN DOSING CONSULT Allergies and ADEs:: Allergies Allergy/AdvReac Type Severity Reaction Status Date / Time No Known Allergies Allergy Verified 09/20/21 15:48 Home Medications:: Home Medications Medication Instructions Recorded Confirmed Type Esomeprazole Magnesium [Nexium] 20 mg PO DAILY 12/15/17 09/20/21 History Insulin Aspart [Novolog] 12 unit SQ AC 12/15/17 09/20/21 History Insulin Degludec [Tresiba 22 unit SQ HS 12/15/17 09/20/21 History Flextouch U-100] Losartan Potassium [Cozaar 100mg 100 mg PO DAILY 12/15/17 09/20/21 History Tablets] hydroCHLOROthiazide [HCTZ 25mg 25 mg PO DAILY 12/15/17 09/20/21 History tab] Metformin HCl 500 mg PO DAILY 12/16/17 09/20/21 History Atorvastatin Calcium [Lipitor 40mg 40 mg PO HS 09/20/21 09/20/21 History Tab] Empagliflozin [Jardiance] 25 mg PO DAILY 09/20/21 09/20/21 History Sitagliptin Phosphate [Januvia 100 mg PO DAILY 09/20/21 09/20/21 History 100mg tablet] Height: 1.75 m Weight: 93.576 kg Laboratory Results:: Laboratory Results - last 24 hr 09/20/21 16:05: SARS-CoV-2 (PCR) Not detected, Influenza A Untype (PCR) Not detected, Influenza Type B (PCR) Not detected 09/20/21 17:00: WBC 20.5 H*, RBC 4.73, Hgb 14.4, Hct 47.6, MCV 100.7 H, MCH 30.5, MCHC 30.3 L, RDW 14.2, Plt Count 391, MPV 9.9, Neut % (Auto) 72.7, Lymph % (Auto) 22.8, [place] % (Auto) 3.2, Eos % (Auto) 0.6, Baso % (Auto) 0.7, Neut # (Auto) 14.9 H, Lymph # (Auto) 4.7 H, [place] # (Auto) 0.7, Eos # (Auto) 0.1, Baso # (Auto) 0.2, Total Counted 100, Neutrophils % (Manual) 69, Lymphocytes % (Manual) 26, Monocytes % (Manual) 5, Platelet Estimate Normal, Macrocytosis 1+ 09/20/21 17:00: Sodium 137, Potassium 4.1, Chloride 105, Carbon Dioxide 14 L, Anion Gap 22.1 H, BUN 24 H, Creatinine 1.30 H, Estimated Creat Clear 58, Estimated GFR 53 L, Est GFR ( Amer) 64, Glucose 395 H, Calcium 9.4, Total Bilirubin 0.4, AST 46, ALT 34, Alkaline Phosphatase 100, Troponin I < 0.01, NT-Pro-B Natriuret Pep 117, Total Protein 7.4, Albumin 4.2, Globulin 3.2, Albumin/Globulin Ratio 1.3 09/20/21 17:00: Lactate 4.5 H 09/20/21 17:03: Specimen Source Left brachial, O2 % 60, ABG pH 7.19 L*, ABG pCO2 50.9 H, ABG pO2 72.3 L, ABG HCO3 18.8 L, ABG Total CO2 20.4 L, ABG O2 Saturation 89 L, ABG Base Excess -9.4 L, Stevenson Test Acceptable, Vent Rate 14, Tidal Volume 480, PEEP 8 09/20/21 19:36: Urine Color Yellow, Urine Appearance Clear, Urine pH 5.5, Ur Specific [place] 1.020, Urine Protein Negative, Urine Glucose (UA) 3+, Urine Ketones Negative, Urine Blood 1+, Urine Nitrate Negative, Urine Bilirubin Negative, Urine Urobilinogen 0.2, Ur Leukocyte Esterase Negative, Urine RBC 3-5, Urine WBC Occasional, Ur Squamous Epith Cells Occasional, Urine Mucus Trace 09/20/21 19:53: Troponin I 0.03 09/20/21 21:00: POC Glucose 322 H* 09/20/21 21:25: Lactate 1.5 09/20/21 22:30: Troponin I 0.06 H 09/21/21 06:00: WBC 30.6 H* D, RBC 3.84 L, Hgb 11.6 L D, Hct 37.9 L, MCV 98.9 H, MCH 30.2, MCHC 30.6 L, RDW 14.4, Plt Count 300, MPV 10.4, Neut % (Auto) 90.2 H, Lymph % (Auto) 4.7 L, [place] % (Auto) 4.8, Eos % (Auto) 0.0 L, Baso % (Auto) 0.4, Neut # (Auto) 27.6 H, Lymph # (Auto) 1.4, [place] # (Auto) 1.5 H, Eos # (Auto) 0.0, Baso # (Auto) 0.1, Total Counted 100, Neutrophils % (Manual) 74, Band Neutrophils % 18.0 H, Lymphocytes % (Manual) 5 L, Monocytes % (Manual) 3, Platelet Estimate Normal, Hypochromasia 1+, Macrocytosis 1+ 09/21/21 06:00: Sodium 141, Potassium 3.7, Chloride 111 H, Carbon Dioxide 21 L, Anion Gap 12.7, BUN 27 H, Creatinine 1.50 H, Estimated Creat Clear 52, Estimated GFR 45 L, Est GFR ( Amer) 54 L, Glucose 328 H, Calcium 8.0 L, Total Bilirubin 0.5, AST 31 D, ALT 23 D, Alkaline Phosphatase 71, Total Protein 5.8 L, Albumin 3.0 L D, Globulin 2.8, Albumin/Globulin Ratio 1.1 09/21/21 07:00: Specimen Source Left radial, O2 % 50, ABG pH 7.27 L, ABG pCO2 42.0
--- NOTE | 2021-09-21 08:56 | HMH.PHAVTE ---
[facility] Pharmacy VTE Monitoring - Patient Demographics Admission date: 09/20/21 Report Date: 09/21/21 Time: 08:56 Allergies/Adverse Reactions: Patient Allergies No Known Allergies Allergy (Verified 09/20/21 15:48) Height: 1.75 m Weight: 93.576 kg Patient Problems: Current Active Problems RLL pneumonia (Acute) Leukocytosis (Acute) Hypoxia (Acute) Diabetes (Chronic) Community acquired pneumonia (Acute) Acute respiratory failure with hypoxia (Acute) Septic shock (Acute) Acute kidney injury (Acute) - VTE Risk Labs: VTE Related Lab Results Hgb 11.6 g/dL (14.1-18.0) L D 09/21/21 06:00 Hct 37.9 % (42.0-52.0) L 09/21/21 06:00 Plt Count 300 K/mm3 (142-424) 09/21/21 06:00 BUN 27 mg/dl (9-20) H 09/21/21 06:00 Creatinine 1.50 mg/dl (0.66-1.25) H 09/21/21 06:00 Estimated Creat Clear 52 mL/min (50-200) 09/21/21 06:00 Was VTE Risk Assessment Performed: Yes VTE Score: 5 VTE Risk Level: Low Risk Clinical Trial Participant: No - Prophylaxis VTE Prophylaxis Ordered?: Yes Types of VTE Prophylaxis: TEDS Knee High, Pharmacological Location of Applied Device: Bilateral Lower Extremeties Pharmacologic Type: Enoxaparin
--- NOTE | 2021-09-21 09:10 | HMH.PHAINT ---
MEDICATION RECONCILIATION COMPLETE USING EXTERNAL PHARMACY FILL HISTORY AND CALL TO LALO TO VERIFY NOVOLOG DOSE AND ANISH TO VERIFY TRESIBA DOSE.
[2021-09-21 11:08] LABS: POC Glucose,Bedside 256 (70-110)
--- NOTE | 2021-09-21 12:00 | PC.NURSE ---
Fentanyl GTT titrated to 60 MCG/HR and Propofol GTT titrated to 30 MCG/HR at this time.
[2021-09-21 16:17] LABS: POC Glucose,Bedside 190 (70-110)
--- NOTE | 2021-09-21 17:02 | DIET.NUTRFU ---
Pt intubated and sedated, nutrition consult for initiating enteral nutrition received. Pt with insulin dependent DM, with PNA in ARF. He is receiving propofol providing significant additional kcal. He is receiving IVF. MAP>60, electrolytes wnl, BG moderate-high avg. 274. If pt unable to extubate in next 48h, upon MD order recommend initiating continuous TF regimen of Pulmocare at 20ml/h and advancing by 10ml/h q 8h as tolerated to goal rate of 44ml/h. Pt currently receiving IVF meeting fluid needs, recommend minimal water flushes of 30-60ml q 4h, if IVF dc'd recommend water flushes of 179ml q 4h to meet additional fluid needs not provided by formula. This regimen provides 1584kcal, 66g protein, 112g cho, 99g fat, and 829ml free water (1900ml total fluids with flushes) Will monitor pt tolerance, meds, fluids, labs to alter regimen as indicated.
--- NOTE | 2021-09-21 18:41 | PC.NURSE ---
Patient remains intubated and sedated with RASS -3, CPOT 0, 7.5 ETT 23@ teeth, current vent settings AC mode, FiO2 50%, RR 14, Peep 8, TV 450, perrla, patient has required frequent suctioning today, secretions johnson and thick, HR reg, ST on telemetry, lung sounds diminished in BL bases, abd soft with hypoactive bowel sounds in all quads, no BM this shift, FC patent and draining clear yellow urine at bedside, trace peripheral edema noted, peripheral pulses 2+, pt has had low grade fever this shift, treated with tylenol per emar, levophed drip remains at 6mcg, has not required titration this shift, patient has been turned q2h and provided oral care and suctioning, abrasion noted to bridge of nose, vss, will continue to monitor for changes.
[2021-09-21 20:41] LABS: POC Glucose,Bedside 183 (70-110)
[2021-09-22] VITALS (33 sets, daily range): BP systolic 91–125; BP diastolic 48–63; PULSE 80–107; RESP 12–17; TEMP 36.8–38.6; O2SAT 50–99; BMI 30.8
--- NOTE | 2021-09-22 06:00 | XR_ITS ---
PROCEDURE INFORMATION: Exam: XR Chest Exam date and time: 09/22/2021 6:00 AM Age: 81 years old Clinical indication: Device placement; Ett placement (vent status); Additional info: PT intubated TECHNIQUE: Imaging protocol: XR of the chest. Views: 1 view. COMPARISON: CR XR CHEST PORTABLE 09/20/2021 9:21 PM FINDINGS: Tubes, catheters and devices: The ET tube is 6 cm from the myesha. Central venous catheter nasogastric tube are unchanged. Lungs: Persistent bibasilar is noted this is slightly more prominent than on the prior study. Pleural spaces: Unremarkable. No pleural effusion. No pneumothorax. Heart/Mediastinum: Unremarkable. No cardiomegaly. Bones/joints: Unremarkable. IMPRESSION: Increasing bibasilar airspace disease.
[2021-09-22 06:21] LABS: POC Glucose,Bedside 215 (70-110)
[2021-09-22 06:22] LABS: Basophils # 0.1 K/mm3 (0-0.2); Lymphocytes # 1.2 K/mm3 (0.7-4.5)
--- NOTE | 2021-09-22 06:23 | PC.NURSE ---
Addendum entered by Samira Lanier RN 09/23/21 06:15: rate 14 Original Note: no acute changes overnight, vent settings FiO2 50%, PEEP 8, rate 8, and tidal volume 450, ET tube 7.5, 23 at the lip, AC mode, sats have been 93-97%, pt remains sedated on 30 mcg propofol and 60 mcg fentanyl. Levophed tuned off at 0100, BP was 110/54, pt has remained normotensive since, current BP 123/50, pt has been febrile this shift, tylenol given twice this shift. Pt bathed this shift and linens changed, oral care provided Q2 and PRN, and has been turned Q2 hour
[2021-09-22 06:26] LABS: Basophils % 0.2 % (0.1-2.0); Hematocrit 34.2 % (42.0-52.0); Lymphocytes % 5.6 % (10-50); Mean Corpuscular HGB Conc 31.1 g/dL (31.8-35.4); Mean Corpuscular Hemoglobin 30.4 pg (27.0-31.2); Mean Corpuscular Volume 97.6 fl (80-94); Mean Platelet Volume 9.7 fl (7.4-10.4); Monocytes % 4.6 % (1.7-9.3); Neutrophils # 19.4 K/mm3 (1.8-7.8); Neutrophils % 89.6 % (37.0-80.0); Platelet Count 292 K/mm3 (142-424); Red Blood Count 3.51 M/mm3 (4.60-6.20); Red Cell Distribution Width 14.6 % (11.5-17.5); White Blood Count 21.6 K/mm3 (4.8-10.8)
[2021-09-22 06:34] LABS: Alanine Aminotransferase 23 U/L (12-78); Albumin Level 2.8 g/dl (3.5-5.0); Alkaline Phosphatase 76 U/L (38-126); Anion Gap 10.7 mEq/L (5-15); Aspartate Amino Transferase 87 U/L (17-59); Bilirubin,Total 0.3 mg/dl (0.2-1.3); Blood Urea Nitrogen 30 mg/dl (9-20); Calcium 8.5 mg/dl (8.4-10.2); Carbon Dioxide 21 mmol/L (22.0-30.0); Chloride 116 mmol/L (98-107); Creatinine Clearance Estimated 53 mL/min (50-200); Estimated Glomerular Filt Rate 45 ml/min (>60); GFR (African American) 54 ML/MIN (>60); Globulin 2.9 g/dL (1.3-3.2); Glucose 228 mg/dl (74-100); Potassium 3.7 mmoL/L (3.5-5.1); Sodium 144 mmol/L (136-145); Total Protein,Serum 5.7 g/dl (6.3-8.2)
[2021-09-22 06:36] LABS: Hemoglobin 10.7 g/dL (14.1-18.0)
[2021-09-22 06:37] LABS: MANUAL DIFFERENTIAL MANUAL DIFFERENTIAL (MANUAL DIFF)
[2021-09-22 06:49] LABS: Hypochromasia 1+; Lymphocytes % 15 % (10-50); Macrocytosis 1+; Monocytes % 1 % (2-9); Neutrophils % 76 % (42-76); Platelet Estimate Normal; Total Cells Counted 100
[2021-09-22 06:52] LABS: ABG HCO3 16.3 mmhg (22.0-26.0); ABG PCO2 38.3 mmhg (35.0-45.0); ABG PH 7.25 mmol/L (7.35-7.45); ABG PO2 99.9 mmhg (80-100); ABG TCO2 17.5 mmhg (23-27)
[2021-09-22 06:53] LABS: Allen's Test Patient Unable; Oxygen 50 %; PEEP 8; Source Left Radial; Tidal Volume 450; Vent Rate 14
--- NOTE | 2021-09-22 08:00 | PC.NURSE ---
Propofol GTT titrated to 40 MCG/HR at this time.
--- NOTE | 2021-09-22 08:20 | HMH.ACPN2 ---
Internal Medicine - PN: Subj *Date: 09/22/21 *Time: 08:20 Interval history: Patient remains intubated in the intensive care unit. Has had a stable night from a respiratory perspective. O2 saturations have been acceptable. Heart rate has been acceptable. Patient remains sedated on propofol and fentanyl drip. Levophed was able to be weaned off through the night and his systolic pressures are above 105. Urine output has been good. at bedside. Exam Vital signs and Labs for Last 24 Hours: Temp Pulse Resp BP Pulse Ox 101.4 F H 103 H 16 119/60 97 09/22/21 04:00 09/22/21 06:34 09/22/21 06:34 09/22/21 06:34 09/22/21 06:34 Laboratory Results - last 24 hr 09/21/21 11:00: POC Glucose 256 H 09/21/21 16:01: POC Glucose 190 H 09/21/21 20:04: POC Glucose 183 H 09/22/21 06:00: Specimen Source Left radial, O2 % 50, ABG pH 7.25 L, ABG pCO2 38.3, ABG pO2 99.9, ABG HCO3 16.3 L, ABG Total CO2 17.5 L, ABG Base Excess -11.0 L, Stevenson Test Patient unable, Vent Rate 14, Tidal Volume 450, PEEP 8 09/22/21 06:00: WBC 21.6 H* D, RBC 3.51 L, Hgb 10.7 L, Hct 34.2 L, MCV 97.6 H, MCH 30.4, MCHC 31.1 L, RDW 14.6, Plt Count 292, MPV 9.7, Neut % (Auto) 89.6 H, Lymph % (Auto) 5.6 L, [place] % (Auto) 4.6, Eos % (Auto) 0.0 L, Baso % (Auto) 0.2, Neut # (Auto) 19.4 H, Lymph # (Auto) 1.2, [place] # (Auto) 1.0, Eos # (Auto) 0.0, Baso # (Auto) 0.1, Total Counted 100, Neutrophils % (Manual) 76, Band Neutrophils % 8.0, Lymphocytes % (Manual) 15, Monocytes % (Manual) 1 L, Platelet Estimate Normal, Hypochromasia 1+, Macrocytosis 1+ 11/14/21 06:00: Sodium 144, Potassium 3.7, Chloride 116 H, Carbon Dioxide 21 L, Anion Gap 10.7, BUN 30 H, Creatinine 1.50 H, Estimated Creat Clear 53, Estimated GFR 45 L, Est GFR ( Amer) 54 L, Glucose 228 H D, Calcium 8.5, Total Bilirubin 0.3, AST 87 H D, ALT 23, Alkaline Phosphatase 76, Total Protein 5.7 L, Albumin 2.8 L, Globulin 2.9, Albumin/Globulin Ratio 1.0 L 09/22/21 06:09: POC Glucose 215 H I & O for Last 24 hours: Intake & Output 09/19/21 09/20/21 09/21/21 09/22/21 11:59 11:59 11:59 11:59 Intake Total 7151 / 7279 2619 / 2619 Output Total 1774 / 1874 1455 / 1455 Balance 5377 / 5405 1164 / 1164 Weight 206 lb 4.8 oz 208 lb 5.389 oz Microbiology Reports for the Last 24 Hours: Microbiology 09/20/21 18:10 Sputum - Endotracheal Tube Aspirate Gram Stain - Final 09/20/21 18:10 Sputum - Endotracheal Tube Aspirate Sputum Culture - Preliminary Narrative: Intubated and sedated as noted above. NG tube and ET tube appear to be in good position. Symmetric air entry with rhonchorous ventilatory sounds noted. Heart rate regular. Abdomen soft. Distal perfusion good. Last catheter draining clear yellow urine. ENT exam otherwise unremarkable. Neurologic exam compromised because of sedated status. Assessment and Plan (1) Acute kidney injury Status: Acute Category: Medical Code(s): N17.9 - Acute kidney failure, unspecified (2) Acute respiratory failure with hypoxia Status: Acute Category: Medical Code(s): J96.01 - Acute respiratory failure with hypoxia (3) Community acquired pneumonia Status: Acute Qualifiers: Laterality: right Lung location: lower lobe of lung Qualified Code(s): J18.9 - Pneumonia, unspecified organism Category: Medical Code(s): J18.9 - Pneumonia, unspecified organism (4) Hypoxia Status: Acute Category: Medical Code(s): R09.02 - Hypoxemia (5) Septic shock Status: Acute Category: Medical Code(s): A41.9 - Sepsis, unspecified organism; R65.21 - Severe sepsis with septic shock (6) Leukocytosis Status: Acute Category: Medical Code(s): D72.829 - Elevated white blood cell count, unspecified (7) RLL pneumonia Status: Acute Category: Medical Code(s): J18.1 - Lobar pneumonia, unspecified organism (8) Diabetes Status: Chronic Category: Medical Code(s): E11.9 - Type 2 diabetes mellitus without complications
[2021-09-22 11:10] LABS: POC Glucose,Bedside 233 (70-110)
[2021-09-22 16:10] LABS: POC Glucose,Bedside 209 (70-110)
[2021-09-22 20:25] LABS: POC Glucose,Bedside 178 (70-110)
[2021-09-23] VITALS (26 sets, daily range): BP systolic 101–165; BP diastolic 52–95; PULSE 11–123; RESP 4–27; TEMP 37.3–38.1; O2SAT 96–99; BMI 30.8; BMI 31.0
[2021-09-23 05:57] LABS: POC Glucose,Bedside 184 (70-110)
--- NOTE | 2021-09-23 06:00 | XR_ITS ---
PROCEDURE INFORMATION: Exam: XR Chest Exam date and time: 09/23/2021 6:00 AM Age: 81 years old Clinical indication: Device placement; Ett placement (vent status); Additional info: Intubated f/u TECHNIQUE: Imaging protocol: XR of the chest. Views: 1 view. COMPARISON: CR XR CHEST PORTABLE 09/22/2021 6:00 AM FINDINGS: Tubes, catheters and devices: Endotracheal tube terminates approximately 8.5 cm above the myesha. Right IJ central venous catheter terminates in the region of the superior cavoatrial junction. NG tube passes into the stomach and off the inferior margin of the image. Lungs: Similar patchy bilateral airspace opacities. Pleural spaces: Unremarkable. No pleural effusion. No pneumothorax. Heart/Mediastinum: Unremarkable. No cardiomegaly. Bones/joints: Unremarkable. IMPRESSION: 1. Endotracheal tube terminates approximately 8.5 cm above myesha. 2. Similar patchy bilateral airspace opacities.
--- NOTE | 2021-09-23 06:19 | PC.NURSE ---
no acute changes overnight, vent settings FiO2 50%, PEEP 8, RATE 14, tidal volume 450, ET tube 7.5, 23 at the lip, AC mode, sats have been 97-99%, pt currently remains sedated on 30 mcg of propofol and 60 mcg of fentanyl, these will be turned off at [address] Redd, UOP adequate, 2000 systolic BP remained less than 100, 500 mL bolus of NS given per Dr. Redd, patient systolic BP has remained above 100 since Oral care provided Q2 hours and PRN, turned and repositioned Q2 hours
[2021-09-23 06:43] LABS: Basophils % 0.2 % (0.1-2.0); Eosinophils % 0.1 % (0.1-12.0); Hematocrit 31.5 % (42.0-52.0); Hemoglobin 9.9 g/dL (14.1-18.0); Lymphocytes # 1.1 K/mm3 (0.7-4.5); Lymphocytes % 5.6 % (10-50); Mean Corpuscular HGB Conc 31.4 g/dL (31.8-35.4); Mean Corpuscular Volume 98.6 fl (80-94); Monocytes # 0.8 K/mm3 (0.1-1.0); Monocytes % 3.8 % (1.7-9.3); Neutrophils # 17.9 K/mm3 (1.8-7.8); Neutrophils % 90.3 % (37.0-80.0); Platelet Count 285 K/mm3 (142-424); Red Cell Distribution Width 14.6 % (11.5-17.5); White Blood Count 19.8 K/mm3 (4.8-10.8)
[2021-09-23 06:46] LABS: MANUAL DIFFERENTIAL MANUAL DIFFERENTIAL (MANUAL DIFF)
[2021-09-23 07:31] LABS: Alanine Aminotransferase 22 U/L (12-78); Albumin Level 2.7 g/dl (3.5-5.0); Albumin/Globulin Ratio 0.9 (1.1-1.8); Alkaline Phosphatase 103 U/L (38-126); Anion Gap 10.6 mEq/L (5-15); Aspartate Amino Transferase 104 U/L (17-59); Bilirubin,Total 0.3 mg/dl (0.2-1.3); Blood Urea Nitrogen 31 mg/dl (9-20); Calcium 8.6 mg/dl (8.4-10.2); Carbon Dioxide 20 mmol/L (22.0-30.0); Chloride 121 mmol/L (98-107); Creatinine Clearance Estimated 56 mL/min (50-200); Estimated Glomerular Filt Rate 49 ml/min (>60); GFR (African American) 59 ML/MIN (>60); Glucose 189 mg/dl (74-100); Potassium 3.6 mmoL/L (3.5-5.1); Sodium 148 mmol/L (136-145); Total Protein,Serum 5.7 g/dl (6.3-8.2)
[2021-09-23 08:04] LABS: Hypochromasia 1+; Lymphocytes % 9 % (10-50); Monocytes % 3 % (2-9); Neutrophils % 88 % (42-76); Platelet Estimate Normal; Total Cells Counted 100
--- NOTE | 2021-09-23 08:27 | HMH.ACPN2 ---
Internal Medicine - PN: Subj *Date: 09/23/21 *Time: 08:27 Interval history: Patient did well overnight. As per my orders yesterday propofol was discontinued at 7 AM and patient is starting to wake up. This morning on rounds we changed him from ventilator support to a pressure support trial at 15, and patient has done well over the past 45 minutes with O2 saturations 97%, pulling a spontaneous tidal volume of 500 mL. Exam Vital signs and Labs for Last 24 Hours: Temp Pulse Resp BP Pulse Ox 99.1 F 97 H 14 117/57 L 98 09/23/21 06:00 09/23/21 06:55 09/23/21 06:55 09/23/21 06:55 09/23/21 06:55 Laboratory Results - last 24 hr 09/22/21 11:03: POC Glucose 233 H 09/22/21 16:00: POC Glucose 209 H 09/22/21 20:12: POC Glucose 178 H 09/23/21 05:50: POC Glucose 184 H 09/23/21 06:00: WBC 19.8 H, RBC 3.20 L, Hgb 9.9 L, Hct 31.5 L, MCV 98.6 H, MCH 31.0, MCHC 31.4 L, RDW 14.6, Plt Count 285, MPV 10.0, Neut % (Auto) 90.3 H, Lymph % (Auto) 5.6 L, [place] % (Auto) 3.8, Eos % (Auto) 0.1, Baso % (Auto) 0.2, Neut # (Auto) 17.9 H, Lymph # (Auto) 1.1, [place] # (Auto) 0.8, Eos # (Auto) 0.0, Baso # (Auto) 0.0, Total Counted 100, Neutrophils % (Manual) 88 H, Lymphocytes % (Manual) 9 L, Monocytes % (Manual) 3, Platelet Estimate Normal, Hypochromasia 1+ 09/23/21 06:00: Sodium 148 H, Potassium 3.6, Chloride 121 H, Carbon Dioxide 20 L, Anion Gap 10.6, BUN 31 H, Creatinine 1.40 H, Estimated Creat Clear 56, Estimated GFR 49 L, Est GFR ( Amer) 59, Glucose 189 H, Calcium 8.6, Total Bilirubin 0.3, AST 104 H, ALT 22, Alkaline Phosphatase 103, Total Protein 5.7 L, Albumin 2.7 L, Globulin 3.0, Albumin/Globulin Ratio 0.9 L I & O for Last 24 hours: Intake & Output 09/20/21 09/21/21 09/22/21 09/23/21 11:59 11:59 11:59 11:59 Intake Total 7151 / 7279 3158 / 3296 2993 / 2993 Output Total 1774 / 1874 1919 1485 / 1485 Balance 5377 / 5405 1238 / 1291 1508 / 1508 Weight 206 lb 4.8 oz 208 lb 5.389 oz 208 lb 5.389 oz Microbiology Reports for the Last 24 Hours: Microbiology 09/20/21 19:53 Blood Blood Culture - Preliminary NO GROWTH AFTER 48 HOURS 09/20/21 17:00 Blood Blood Culture - Preliminary NO GROWTH AFTER 48 HOURS 09/20/21 18:10 Sputum - Endotracheal Tube Aspirate Gram Stain - Final 09/20/21 18:10 Sputum - Endotracheal Tube Aspirate Sputum Culture - Preliminary Narrative: NG tube in place, patient is intubated still, is much more awake and trying to pull the ventilator out now the propofol is off. Rhonchorous lungs bilaterally but good air movement. Symmetric. Heart rate regular, slightly tachycardic given his increasing alertness. Abdomen soft. Extremities warm and well-perfused. Oropharynx moist. Assessment and Plan (1) Acute kidney injury Status: Acute Category: Medical Code(s): N17.9 - Acute kidney failure, unspecified (2) Acute respiratory failure with hypoxia Status: Acute Category: Medical Code(s): J96.01 - Acute respiratory failure with hypoxia (3) Community acquired pneumonia Status: Acute Qualifiers: Laterality: right Lung location: lower lobe of lung Qualified Code(s): J18.9 - Pneumonia, unspecified organism Category: Medical Code(s): J18.9 - Pneumonia, unspecified organism (4) Hypoxia Status: Acute Category: Medical Code(s): R09.02 - Hypoxemia (5) Septic shock Status: Acute Category: Medical Code(s): A41.9 - Sepsis, unspecified organism; R65.21 - Severe sepsis with septic shock (6) Leukocytosis Status: Acute Category: Medical Code(s): D72.829 - Elevated white blood cell count, unspecified (7) RLL pneumonia Status: Acute Category: Medical Code(s): J18.1 - Lobar pneumonia, unspecified organism (8) Diabetes Status: Chronic Category: Medical Code(s): E11.9 - Type 2 diabetes mellitus without complications - Assessment and plan all Dx Assessment and Plan for all
[2021-09-23 11:51] LABS: POC Glucose,Bedside 204 (70-110)
[2021-09-23 13:23] LABS: ABG Base Excess -8.4 mmol/L (-2.4-2.3); ABG HCO3 17.9 mmhg (22.0-26.0); ABG Oxygen Saturation 94 % (90-100); ABG PCO2 36.3 mmhg (35.0-45.0); ABG PH 7.31 mmol/L (7.35-7.45); ABG PO2 71.7 mmhg (80-100)
[2021-09-23 13:27] LABS: Allen's Test acceptable; Oxygen 50 %; PEEP BIPAP 16/10; Source Right Radial
[2021-09-23 17:56] LABS: POC Glucose,Bedside 179 (70-110)
--- NOTE | 2021-09-23 18:33 | PC.NURSE ---
Pt extubated per respiratory this am and placed on NRB. Pt became tachycardic (130's) and restless. O2 dropped to the upper 70's -low 80's and he was unable to recover. notified and new order of 80mg IV lasix and 0.5mg ativan received and administered (read back and verified). He also ordered for patient to be placed on bipap. Pt's O2 sats have since been in the upper 90's w/HR in the 110's. Pt again became restless in the afternoon w/HR 120's-130's. On-call MD was notified by Elvia Mauro RN. New order for prn ativan received and administered. Pt is now resting comfortably. He has had approx 4000 mls of urine out this shift. has been at bedside the majority of the shift and is supportive.
[2021-09-23 22:03] LABS: Vancomycin,Trough 11.6 ug/mL (5.0-10.0)
[2021-09-24] VITALS (20 sets, daily range): BP systolic 110–150; BP diastolic 52–81; PULSE 93–120; RESP 16–32; TEMP 36.4–37.4; O2SAT 91–98; BMI 30.5
--- NOTE | 2021-09-24 00:53 | PC.NURSE ---
[id number]- spoke with [facility] regarding vanc trough result of 11.6; no new orders, continue next dose of vanc
[2021-09-24 02:58] LABS: Vancomycin,Peak 26.5 ug/ml (11-39)
[2021-09-24 05:34] LABS: POC Glucose,Bedside 205 (70-110)
--- NOTE | 2021-09-24 05:36 | PC.NURSE ---
PT. RESTLESS T/O NIGHT. HR 100'S. 0500- NG TUBE OUT SEVERAL CM; ATTEMPTED TO ADVANCE NG, UNABLE TO DO SO PT. NOT COOPERATING. D/C NG AND ATTEMPTED TO INSERT NEW NG; ATTEMPT UNSUCCESSFUL O2 SATS DECREASED RAPIDLY.
[2021-09-24 06:51] LABS: Basophils # 0.1 K/mm3 (0-0.2); Basophils % 0.3 % (0.1-2.0); Eosinophils % 0.1 % (0.1-12.0); Hematocrit 34.8 % (42.0-52.0); Hemoglobin 10.7 g/dL (14.1-18.0); Lymphocytes # 1.3 K/mm3 (0.7-4.5); Lymphocytes % 6.1 % (10-50); Mean Corpuscular HGB Conc 30.8 g/dL (31.8-35.4); Mean Corpuscular Hemoglobin 30.5 pg (27.0-31.2); Mean Corpuscular Volume 99.1 fl (80-94); Mean Platelet Volume 9.9 fl (7.4-10.4); Monocytes # 1.2 K/mm3 (0.1-1.0); Monocytes % 5.4 % (1.7-9.3); Platelet Count 342 K/mm3 (142-424); Red Blood Count 3.52 M/mm3 (4.60-6.20); Red Cell Distribution Width 14.7 % (11.5-17.5); White Blood Count 21.5 K/mm3 (4.8-10.8)
[2021-09-24 06:55] LABS: MANUAL DIFFERENTIAL MANUAL DIFFERENTIAL (MANUAL DIFF)
[2021-09-24 07:05] LABS: ABG Base Excess -9.8 mmol/L (-2.4-2.3); ABG HCO3 16.5 mmhg (22.0-26.0); ABG Oxygen Saturation 96 % (90-100); ABG PH 7.31 mmol/L (7.35-7.45); ABG PO2 96.7 mmhg (80-100); ABG TCO2 17.6 mmhg (23-27)
[2021-09-24 07:07] LABS: Oxygen 50 %; PEEP BIPAP 16/10; Source Right Brachial
[2021-09-24 07:08] LABS: Alanine Aminotransferase 29 U/L (12-78); Albumin Level 3.1 g/dl (3.5-5.0); Alkaline Phosphatase 122 U/L (38-126); Anion Gap 17.2 mEq/L (5-15); Aspartate Amino Transferase 107 U/L (17-59); Bilirubin,Total 0.5 mg/dl (0.2-1.3); Blood Urea Nitrogen 36 mg/dl (9-20); Carbon Dioxide 20 mmol/L (22.0-30.0); Chloride 121 mmol/L (98-107); Creatinine Clearance Estimated 60 mL/min (50-200); Estimated Glomerular Filt Rate 53 ml/min (>60); GFR (African American) 64 ML/MIN (>60); Globulin 3.2 g/dL (1.3-3.2); Glucose 221 mg/dl (74-100); Magnesium 2.5 mg/dl (1.6-2.3); Potassium 3.2 mmoL/L (3.5-5.1); Total Protein,Serum 6.3 g/dl (6.3-8.2)
[2021-09-24 07:11] LABS: Sodium 155 mmol/L (136-145)
--- NOTE | 2021-09-24 07:22 | SW/DCPLANNER ---
PATIENT WAS EXTUBATED YESTERDAY AND HAS BEEN OFF THE VENTILATOR OVER NIGHT... WILL SEE HOW PATIENT DOES TODAY AND SEE IF ANY DISCHARGE PLANNING IS NECESSARY TO START... WILL PROVIDE RESOURCES TO WHEN THE TIMES COMES FOR HIM TO HAVE A DISPOSITION..
--- NOTE | 2021-09-24 07:33 | PC.NURSE ---
received call from lab (Josi) @ [phone] Redd has been updated.
--- NOTE | 2021-09-24 07:43 | HMH.ACPN2 ---
Internal Medicine - PN: Subj *Date: 09/24/21 *Time: 08:39 Interval history: Oxygen saturations good on BiPAP this morning. Significant agitation overnight however. Has been intolerant of oral intake. Was pulling at lines so IV fluids were held overnight. Likely culprit in hypernatremia this morning. Patient trying to get out of bed and acutely delirious this morning on exam. at bedside. Updated of plan and current status however unsure of how much she fully understands. Exam Vital signs and Labs for Last 24 Hours: Temp Pulse Resp BP Pulse Ox 99.2 F 98 H 23 132/77 98 09/24/21 04:00 09/24/21 06:10 09/24/21 06:00 09/24/21 06:00 09/24/21 06:10 Laboratory Results - last 24 hr 09/23/21 06:00: Total Counted 100, Neutrophils % (Manual) 88 H, Lymphocytes % (Manual) 9 L, Monocytes % (Manual) 3, Platelet Estimate Normal, Hypochromasia 1+ 09/23/21 11:44: POC Glucose 204 H 09/23/21 13:20: Specimen Source Right radial, O2 % 50, ABG pH 7.31 L, ABG pCO2 36.3, ABG pO2 71.7 L, ABG HCO3 17.9 L, ABG Total CO2 19.0 L, ABG O2 Saturation 94, ABG Base Excess -8.4 L, Stevenson Test acceptable, PEEP Bipap 16/10 09/23/21 15:51: POC Glucose 179 H 09/23/21 21:11: Vancomycin Trough 11.6 H 09/24/21 02:18: Vancomycin Peak 26.5 09/24/21 05:20: WBC 21.5 H*, RBC 3.52 L, Hgb 10.7 L, Hct 34.8 L, MCV 99.1 H, MCH 30.5, MCHC 30.8 L, RDW 14.7, Plt Count 342, MPV 9.9, Neut % (Auto) 88.0 H, Lymph % (Auto) 6.1 L, [place] % (Auto) 5.4, Eos % (Auto) 0.1, Baso % (Auto) 0.3, Neut # (Auto) 19.0 H, Lymph # (Auto) 1.3, [place] # (Auto) 1.2 H, Eos # (Auto) 0.0, Baso # (Auto) 0.1 09/24/21 05:20: Sodium 155 H*, Potassium 3.2 L, Chloride 121 H, Carbon Dioxide 20 L, Anion Gap 17.2 H, BUN 36 H, Creatinine 1.30 H, Estimated Creat Clear 60, Estimated GFR 53 L, Est GFR ( Amer) 64, Glucose 221 H, Calcium 9.0, Magnesium 2.5 H, Total Bilirubin 0.5, AST 107 H, ALT 29 D, Alkaline Phosphatase 122, Total Protein 6.3, Albumin 3.1 L D, Globulin 3.2, Albumin/Globulin Ratio 1.0 L 09/24/21 05:21: POC Glucose 205 H 09/24/21 06:00: Specimen Source Right brachial, O2 % 50, ABG pH 7.31 L, ABG pCO2 34.0 L, ABG pO2 96.7, ABG HCO3 16.5 L, ABG Total CO2 17.6 L, ABG O2 Saturation 96, ABG Base Excess -9.8 L, Stevenson Test n/a, PEEP Bipap 16/10 I & O for Last 24 hours: Intake & Output 09/21/21 09/22/21 09/23/21 09/24/21 23:59 23:59 23:59 23:59 Intake Total 2751 / 3138 3542 / 3565 1218 / 1218 Output Total 2365 / 2425 1815 / 1885 4415 / 4915 900 / 900 Balance 386 / 713 1727 / 1680 -3197 / -3697 -900 / -900 Weight 93.576 kg 94.5 kg 95 kg 93.61 kg Microbiology Reports for the Last 24 Hours: Microbiology 09/20/21 18:10 Sputum - Endotracheal Tube Aspirate Gram Stain - Final 09/20/21 18:10 Sputum - Endotracheal Tube Aspirate Sputum Culture - Final Normal Respiratory Stella - Constitutional moderate distress, obese - *Routine HEENT Exam Head: Present: normocephalic Eye: Present: EOMI, PERRL ENT: Present: mucous membranes dry - *Routine Neck Exam Present: supple. Absent: lymphadenopathy - *Routine Respiratory Exam Present: crackles, distant breath sounds, diminished air movement - *Routine Cardiovascular Exam Present: tachycardia - *Routine Abdominal Exam Present: soft, normoactive bowel sounds. Absent: tenderness - *Routine Extremities Exam Absent: cyanosis, clubbing, edema - *Routine Skin Exam Present: warm. Absent: rash - *Routine Neurological Exam Present: alert - Routine Psychiatric Exam Present: agitated, unable to assess Assessment and Plan (1) Acute kidney injury Status: Acute Category: Medical Code(s): N17.9 - Acute kidney failure, unspecified (2) Acute respiratory failure with hypoxia Status: Acute Category: Medical Code(s): J96.01 - Acute respiratory failure with hypoxia (3) Community acquired pneumonia Status: Acute Qualifiers: Laterality: right Lung location: lower lobe of lung Qual
[2021-09-24 08:24] LABS: Lymphocytes % 7 % (10-50); Macrocytosis 1+; Monocytes % 6 % (2-9); Neutrophils % 87 % (42-76); Platelet Estimate Normal; Total Cells Counted 100
--- NOTE | 2021-09-24 08:25 | PC.NURSE ---
Dr. Almodovar @ BS rounding. Bipap switched to NRB mask. Pt remains agitated, restless, and attempting to climb OOB. Mittens on BUE. @ BS. Pupils uneven. Right pupil 3mm and left pupil 1mm. Pt is unable to answer questions and is not able to redirected when spoken to. Meds adjusted by Dr. Almodovar. Ativan po switched to IV form. Right IJ TLDL dressing changed.
--- NOTE | 2021-09-24 12:25 | PC.NURSE ---
O2 sat has remained high 90s on NRB mask. NRB mask switched to 50% venti mask @ this time. O2 sat 94%.
--- NOTE | 2021-09-24 12:45 | PC.NURSE ---
Pt is agitated, restless, attempting to climb OOB bed, and is hollering out. Is unable to be redirected, continues to be disoriented, and will not open eyes. HR 110s with frequent PVCs, BP 115/68, and O2 sat 90-91% on 50% venti mask. Contacted Dr. Almodovar, who ordered a 1 time dose of Ativan 2mg IV NOW. Order faxed to pharmacy.
--- NOTE | 2021-09-24 13:26 | HMH.ACPN ---
Internal Medicine - PN: Subj *Date: 09/24/21 *Time: 13:26 Exam Vital signs and Labs for Last 24 Hours: Temp Pulse Resp BP Pulse Ox 97.5 F L 100 H 26 H 115/68 98 09/24/21 10:00 09/24/21 12:00 09/24/21 12:00 09/24/21 12:00 09/24/21 12:00 Laboratory Results - last 24 hr 09/23/21 13:20: Specimen Source Right radial, O2 % 50, ABG pH 7.31 L, ABG pCO2 36.3, ABG pO2 71.7 L, ABG HCO3 17.9 L, ABG Total CO2 19.0 L, ABG O2 Saturation 94, ABG Base Excess -8.4 L, Stevenson Test acceptable, PEEP Bipap 24/0809/23/21 15:51: POC Glucose 179 H 09/23/21 21:11: Vancomycin Trough 11.6 H 09/24/21 02:18: Vancomycin Peak 26.5 09/24/21 05:20: WBC 21.5 H*, RBC 3.52 L, Hgb 10.7 L, Hct 34.8 L, MCV 99.1 H, MCH 30.5, MCHC 30.8 L, RDW 14.7, Plt Count 342, MPV 9.9, Neut % (Auto) 88.0 H, Lymph % (Auto) 6.1 L, [place] % (Auto) 5.4, Eos % (Auto) 0.1, Baso % (Auto) 0.3, Neut # (Auto) 19.0 H, Lymph # (Auto) 1.3, [place] # (Auto) 1.2 H, Eos # (Auto) 0.0, Baso # (Auto) 0.1, Total Counted 100, Neutrophils % (Manual) 87 H, Lymphocytes % (Manual) 7 L, Monocytes % (Manual) 6, Platelet Estimate Normal, Macrocytosis 1+ 09/24/21 05:20: Sodium 155 H*, Potassium 3.2 L, Chloride 121 H, Carbon Dioxide 20 L, Anion Gap 17.2 H, BUN 36 H, Creatinine 1.30 H, Estimated Creat Clear 60, Estimated GFR 53 L, Est GFR ( Amer) 64, Glucose 221 H, Calcium 9.0, Magnesium 2.5 H, Total Bilirubin 0.5, AST 107 H, ALT 29 D, Alkaline Phosphatase 122, Total Protein 6.3, Albumin 3.1 L D, Globulin 3.2, Albumin/Globulin Ratio 1.0 L 09/24/21 05:21: POC Glucose 205 H 09/24/21 06:00: Specimen Source Right brachial, O2 % 50, ABG pH 7.31 L, ABG pCO2 34.0 L, ABG pO2 96.7, ABG HCO3 16.5 L, ABG Total CO2 17.6 L, ABG O2 Saturation 96, ABG Base Excess -9.8 L, Stevenson Test n/a, PEEP Bipap 24/08 I & O for Last 24 hours: Intake & Output 09/21/21 09/22/21 09/23/21 09/24/21 23:59 23:59 23:59 23:59 Intake Total 2751 / 3138 3542 / 3565 1218 / 1218 Output Total 2365 / 2425 1815 / 1885 4415 / 4915 1700 / 1700 Balance 386 / 713 1727 / 1680 -3197 / -3697 -1700 / -1700 Weight 93.576 kg 94.5 kg 95 kg 93.61 kg Microbiology Reports for the Last 24 Hours: Microbiology 09/22/21 08:56 Blood Blood Culture - Preliminary NO GROWTH AFTER 48 HOURS 09/22/21 08:20 Blood Blood Culture - Preliminary NO GROWTH AFTER 48 HOURS 09/20/21 18:10 Sputum - Endotracheal Tube Aspirate Gram Stain - Final 09/20/21 18:10 Sputum - Endotracheal Tube Aspirate Sputum Culture - Final Normal Respiratory Stella Assessment and Plan (1) Acute kidney injury Status: Acute Category: Medical Code(s): N17.9 - Acute kidney failure, unspecified (2) Acute respiratory failure with hypoxia Status: Acute Category: Medical Code(s): J96.01 - Acute respiratory failure with hypoxia (3) Community acquired pneumonia Status: Acute Qualifiers: Laterality: right Lung location: lower lobe of lung Qualified Code(s): J18.9 - Pneumonia, unspecified organism Category: Medical Code(s): J18.9 - Pneumonia, unspecified organism (4) Hypoxia Status: Acute Category: Medical Code(s): R09.02 - Hypoxemia (5) Septic shock Status: Acute Category: Medical Code(s): A41.9 - Sepsis, unspecified organism; R65.21 - Severe sepsis with septic shock (6) Leukocytosis Status: Acute Category: Medical Code(s): D72.829 - Elevated white blood cell count, unspecified (7) RLL pneumonia Status: Acute Category: Medical Code(s): J18.1 - Lobar pneumonia, unspecified organism (8) Diabetes Status: Chronic Category: Medical Code(s): E11.9 - Type 2 diabetes mellitus without complications (9) Delirium Status: Acute Category: Medical Code(s): R41.0 - Disorientation, unspecified (10) Hypernatremia Status: Acute Category: Medical Code(s): E87.0 - Hyperosmolality and hypernatremia The patient's infection will respond
[2021-09-24 14:33] LABS: Alanine Aminotransferase 30 U/L (12-78); Albumin/Globulin Ratio 0.9 (1.1-1.8); Alkaline Phosphatase 103 U/L (38-126); Anion Gap 12.2 mEq/L (5-15); Aspartate Amino Transferase 92 U/L (17-59); Bilirubin,Total 0.4 mg/dl (0.2-1.3); Blood Urea Nitrogen 35 mg/dl (9-20); Calcium 9.2 mg/dl (8.4-10.2); Carbon Dioxide 25 mmol/L (22.0-30.0); Chloride 122 mmol/L (98-107); Creatinine Clearance Estimated 65 mL/min (50-200); Estimated Glomerular Filt Rate 58 ml/min (>60); GFR (African American) 70 ML/MIN (>60); Globulin 3.4 g/dL (1.3-3.2); Glucose 202 mg/dl (74-100); Potassium 3.2 mmoL/L (3.5-5.1); Total Protein,Serum 6.4 g/dl (6.3-8.2)
[2021-09-24 14:37] LABS: Sodium 156 mmol/L (136-145)
--- NOTE | 2021-09-24 14:37 | PC.NURSE ---
received call from lab ([facility]) reporting that Na is 156. Name and verified. Dr. Almodovar updated.
--- NOTE | 2021-09-24 16:50 | PC.NURSE ---
RESPIRATORY CARE NOTE: NT SXN PT AT THIS TIME. LARGE AMOUNT OF THICK CREAM COLORED SPUTUM WAS SXND
[2021-09-24 16:54] LABS: POC Glucose,Bedside 178 (70-110)
[2021-09-24 22:59] LABS: Chloride 123 mmol/L (98-107); Potassium 3.1 mmoL/L (3.5-5.1)
[2021-09-24 23:02] LABS: Blood Urea Nitrogen 34 mg/dl (9-20); Creatinine Clearance Estimated 71 mL/min (50-200); Estimated Glomerular Filt Rate 64 ml/min (>60); GFR (African American) 78 ML/MIN (>60)
[2021-09-24 23:03] LABS: Anion Gap 14.1 mEq/L (5-15); Calcium 8.9 mg/dl (8.4-10.2); Carbon Dioxide 22 mmol/L (22.0-30.0); Glucose 277 mg/dl (74-100)
[2021-09-24 23:05] LABS: Sodium 156 mmol/L (136-145)
[2021-09-25] VITALS (30 sets, daily range): BP systolic 53–161; BP diastolic 34–75; PULSE 77–117; RESP 14–35; TEMP 36.4–37.6; O2SAT 89–99; BMI 30.5
--- NOTE | 2021-09-25 02:18 | XR_ITS ---
PROCEDURE INFORMATION: Exam: XR Chest Exam date and time: 09/25/2021 2:18 AM Age: 81 years old Clinical indication: Other: Increased rr TECHNIQUE: Imaging protocol: XR of the chest. Views: 1 view. COMPARISON: CR XR CHEST PORTABLE 09/23/2021 5:37 AM FINDINGS: Tubes, catheters and devices: Enteric tube is been removed. Patient is been extubated. Right IJ catheter is unchanged. Lungs: Airspace disease appears unchanged to mildly worse. Pleural spaces: Probable left pleural effusion and possible right pleural effusion. Heart/Mediastinum: Cardiomegaly. Bones/joints: Unremarkable. IMPRESSION: Airspace disease appears unchanged to mildly worse.
[2021-09-25 02:30] LABS: ABG Base Excess -6.6 mmol/L (-2.4-2.3); ABG HCO3 19.6 mmhg (22.0-26.0); ABG Oxygen Saturation 87 % (90-100); ABG PCO2 39.9 mmhg (35.0-45.0); ABG PH 7.31 mmol/L (7.35-7.45); ABG PO2 56.1 mmhg (80-100); ABG TCO2 20.9 mmhg (23-27)
[2021-09-25 02:31] LABS: Allen's Test y; Oxygen 70 %; Source R/R
--- NOTE | 2021-09-25 05:47 | PC.NURSE ---
at beginning of shift patient on 50% venti mask, sats gradually decreased and WOB increased, pt placed on vapotherm 35L/70% per Dr. Garcia, sats increased from 86 to 95%, as night progressed WOB continued to increase, sats began to decrease, , upon assessment pt had very coarse audible crackles as well, chest X-ray and ABG ordered per Dr. Garcia, vapotherm increased to 40L/100% with sats sustaining in the low 90's, due to no improvement in patient and pt WOB increasing and audible crackles, 40 mg Lasix IV ordered and fluids decreased to 50 mL per hour, per Dr. Garcia, WOB and sats have improved since, with sats 94-97%, WOB decreased, audible crackles no longer heard pt remains ST on tele with frequent PVCs, UOP adequate, with at least 100 mL per hour, pt agitation has been manageable with PRN medications
[2021-09-25 06:22] LABS: POC Glucose,Bedside 236 (70-110)
[2021-09-25 06:23] LABS: Basophils % 0.2 % (0.1-2.0); Eosinophils % 0.1 % (0.1-12.0); Hematocrit 35.4 % (42.0-52.0); Hemoglobin 10.9 g/dL (14.1-18.0); Lymphocytes # 0.9 K/mm3 (0.7-4.5); Lymphocytes % 4.8 % (10-50); Mean Corpuscular HGB Conc 30.7 g/dL (31.8-35.4); Mean Corpuscular Hemoglobin 30.4 pg (27.0-31.2); Mean Platelet Volume 10.2 fl (7.4-10.4); Monocytes # 1.2 K/mm3 (0.1-1.0); Monocytes % 6.3 % (1.7-9.3); Neutrophils # 16.2 K/mm3 (1.8-7.8); Neutrophils % 88.5 % (37.0-80.0); Platelet Count 404 K/mm3 (142-424); Red Blood Count 3.57 M/mm3 (4.60-6.20); White Blood Count 18.3 K/mm3 (4.8-10.8)
--- NOTE | 2021-09-25 06:27 | PC.NURSE ---
central line dressing changed this shift
[2021-09-25 06:32] LABS: Alanine Aminotransferase 27 U/L (12-78); Albumin Level 2.9 g/dl (3.5-5.0); Albumin/Globulin Ratio 0.9 (1.1-1.8); Alkaline Phosphatase 108 U/L (38-126); Anion Gap 12.2 mEq/L (5-15); Aspartate Amino Transferase 60 U/L (17-59); Bilirubin,Total 0.3 mg/dl (0.2-1.3); Blood Urea Nitrogen 33 mg/dl (9-20); Calcium 9.2 mg/dl (8.4-10.2); Carbon Dioxide 25 mmol/L (22.0-30.0); Chloride 124 mmol/L (98-107); Creatinine Clearance Estimated 65 mL/min (50-200); Estimated Glomerular Filt Rate 58 ml/min (>60); GFR (African American) 70 ML/MIN (>60); Globulin 3.3 g/dL (1.3-3.2); Glucose 302 mg/dl (74-100); Magnesium 2.5 mg/dl (1.6-2.3); Potassium 3.2 mmoL/L (3.5-5.1); Total Protein,Serum 6.2 g/dl (6.3-8.2)
[2021-09-25 06:34] LABS: MANUAL DIFFERENTIAL MANUAL DIFFERENTIAL (MANUAL DIFF)
[2021-09-25 06:35] LABS: Sodium 158 mmol/L (136-145)
[2021-09-25 07:03] LABS: Hypochromasia 2+; Lymphocytes % 8 % (10-50); Macrocytosis 2+; Monocytes % 1 % (2-9); Neutrophils % 91 % (42-76); Platelet Estimate Normal; Total Cells Counted 100
[2021-09-25 07:09] LABS: ABG Base Excess -5.7 mmol/L (-2.4-2.3); ABG Oxygen Saturation 94 % (90-100); ABG PCO2 45.1 mmhg (35.0-45.0); ABG PH 7.29 mmol/L (7.35-7.45); ABG PO2 78.5 mmhg (80-100); ABG TCO2 22.3 mmhg (23-27)
[2021-09-25 07:11] LABS: Oxygen 100 %; Source Right Brachial
--- NOTE | 2021-09-25 08:11 | CA_ITS ---
APPROVED REPORT EXAM: Comprehensive 2D, Doppler, and color-flow Echocardiogram Atmospheric Scientist: Mellisa Brush RT(R) Ht: 5 ft 9 in Wt: 206lbs BSA: 2.09 BP: 115/68 mmHg Indications: HTN, DM, obesity, hyperlipidemia, pneumonia, intubated, respiratory failure. Patient is rolled toward the right and is intubated. Scanning is limited due to positioning and lung interference. ordered as a limited for EF check only. M-Mode Dimensions RVDd 4.40 cm (0.9-2.6) LVDd 3.92 cm (3.5-5.7) Ao Diam 4.02 cm (2.0-3.7) LVDs 3.06 cm (3.5-5.7) IVSd 1.07 cm (0.6-1.1) PWd 0.86 cm (0.6-1.1) EF (Teich) 45.00% FS 21.90% EDV (Teich) 66.70 mL ESV (Teich) 36.70 mL Conclusion 1. Limited study was performed due to patient factors and poor acoustic windows. 2. Likely preserved left ventricular systolic function with no regional wall motion abnormality in the segments visualized. 3. No significant pericardial effusion noted. Electronically signed by : Supa Cano MD 09/26/2021 06:15:14
--- NOTE | 2021-09-25 08:12 | CT_ITS ---
PROCEDURE INFORMATION: Exam: CT Head Without Contrast Exam date and time: 09/25/2021 8:12 AM Age: 81 years old Clinical indication: Altered mental status/memory loss; Additional info: Cognitive decline. PT intubated this am TECHNIQUE: Imaging protocol: Computed tomography of the head without contrast. Radiation optimization: All CT scans at this facility use at least one of these dose optimization techniques: automated exposure control; mA and/or kV adjustment per patient size (includes targeted exams where dose is matched to clinical indication); or iterative reconstruction. COMPARISON: No relevant prior studies available. FINDINGS: Brain: There is no acute intracranial hemorrhage, cerebral edema, or midline shift. Chronic microvascular ischemic changes are seen in the periventricular white matter. Age-related cerebral and cerebellar volume loss is present. Cerebral ventricles: Mild ex vacuo dilation of the lateral and third ventricles is noted. Paranasal sinuses: Mild mucosal thickening is present in the ethmoid and sphenoid sinuses. Mastoid air cells: Bilateral mastoid effusions are present. Orbital cavity: The included orbital structures are unremarkable. Vasculature: Atherosclerotic calcifications are seen involving the cavernous carotid arteries. Bones/joints: No acute fracture. Soft tissues: A small amount of air is noted in the retropharyngeal space. This is of uncertain etiology, but could be related to air tracking from the chest or trauma related to intubation. Therefore, a CT of the neck is recommended. IMPRESSION: 1. A small amount of air is noted in the retropharyngeal space. This is of uncertain etiology, but could be related to air tracking from the chest or trauma related to intubation. Therefore, a CT of the neck is recommended. 2. No acute intracranial abnormality. 3. Atrophy and chronic deep white matter ischemic changes. 4. [place] Stroke Program Early CT Score (ASPECTS) = 10
--- NOTE | 2021-09-25 08:16 | HMH.ACPN2 ---
Internal Medicine - PN: Subj *Date: 09/25/21 *Time: 08:16 Interval history: Patient has had a rough night. Has required increasing oxygen therapy with Vapotherm and has had several doses of Ativan to prevent his significant combative status. His is at bedside. She has incredibly poor insight into his disease process, but does note that he was confused for the couple of days before admission. No focal deficits noted by her. Nurses note that he continues to have significant sputum production and coughs quite a bit in the are doing NT suction to try to keep his airway clear. Exam Vital signs and Labs for Last 24 Hours: Temp Pulse Resp BP Pulse Ox 97.8 F 103 H 20 117/57 L 95 09/25/21 04:00 09/25/21 06:20 09/25/21 06:00 09/25/21 06:00 09/25/21 06:20 Laboratory Results - last 24 hr 09/24/21 05:20: Total Counted 100, Neutrophils % (Manual) 87 H, Lymphocytes % (Manual) 7 L, Monocytes % (Manual) 6, Platelet Estimate Normal, Macrocytosis 1+ 09/24/21 14:10: Sodium 156 H*, Potassium 3.2 L, Chloride 122 H, Carbon Dioxide 25, Anion Gap 12.2, BUN 35 H, Creatinine 1.20, Estimated Creat Clear 65, Estimated GFR 58 L, Est GFR ( Amer) 70, Glucose 202 H, Calcium 9.2, Total Bilirubin 0.4, AST 92 H, ALT 30, Alkaline Phosphatase 103, Total Protein 6.4, Albumin 3.0 L, Globulin 3.4 H, Albumin/Globulin Ratio 0.9 L 09/24/21 16:30: POC Glucose 178 H 09/24/21 22:40: Sodium 156 H*, Potassium 3.1 L, Chloride 123 H, Carbon Dioxide 22, Anion Gap 14.1, BUN 34 H, Creatinine 1.10, Estimated Creat Clear 71, Estimated GFR 64, Est GFR ( Amer) 78, Glucose 277 H D, Calcium 8.9 09/25/21 02:18: Specimen Source R/r, O2 % 70, ABG pH 7.31 L, ABG pCO2 39.9, ABG pO2 56.1 L, ABG HCO3 19.6 L, ABG Total CO2 20.9 L, ABG O2 Saturation 87 L*, ABG Base Excess -6.6 L, Stevenson Test y 09/25/21 06:10: WBC 18.3 H, RBC 3.57 L, Hgb 10.9 L, Hct 35.4 L, MCV 99.0 H, MCH 30.4, MCHC 30.7 L, RDW 15.0, Plt Count 404, MPV 10.2, Neut % (Auto) 88.5 H, Lymph % (Auto) 4.8 L, [place] % (Auto) 6.3, Eos % (Auto) 0.1, Baso % (Auto) 0.2, Neut # (Auto) 16.2 H, Lymph # (Auto) 0.9, [place] # (Auto) 1.2 H, Eos # (Auto) 0.0, Baso # (Auto) 0.0, Total Counted 100, Neutrophils % (Manual) 91 H, Lymphocytes % (Manual) 8 L, Monocytes % (Manual) 1 L, Platelet Estimate Normal, Hypochromasia 2+, Macrocytosis 2+ 09/25/21 06:10: Sodium 158 H*, Potassium 3.2 L, Chloride 124 H, Carbon Dioxide 25, Anion Gap 12.2, BUN 33 H, Creatinine 1.20, Estimated Creat Clear 65, Estimated GFR 58 L, Est GFR ( Amer) 70, Glucose 302 H, Calcium 9.2, Magnesium 2.5 H, Total Bilirubin 0.3, AST 60 H D, ALT 27, Alkaline Phosphatase 108, Total Protein 6.2 L, Albumin 2.9 L, Globulin 3.3 H, Albumin/Globulin Ratio 0.9 L 09/25/21 06:12: POC Glucose 236 H 09/25/21 06:43: Specimen Source Right brachial, O2 % 100, ABG pH 7.29 L, ABG pCO2 45.1 H, ABG pO2 78.5 L, ABG HCO3 21.0 L, ABG Total CO2 22.3 L, ABG O2 Saturation 94, ABG Base Excess -5.7 L, Stevenson Test n/a I & O for Last 24 hours: Intake & Output 09/22/21 09/23/21 09/24/21 09/25/21 11:59 11:59 11:59 11:59 Intake Total 3158 / 3296 2993 / 2993 3206 / 3206 Output Total 1919 3285 / 3285 3700 / 3700 2850 / 2850 Balance 1238 / 1291 -292 / -292 -3700 / -3700 356 / 356 Weight 208 lb 5.389 oz 208 lb 5.389 oz 206 lb 6 oz 206 lb 4 oz Microbiology Reports for the Last 24 Hours: Microbiology 09/22/21 08:56 Blood Blood Culture - Preliminary NO GROWTH AFTER 48 HOURS 09/22/21 08:20 Blood Blood Culture - Preliminary NO GROWTH AFTER 48 HOURS Narrative: Patient is obtunded, somewhat combative and resistant to care. Does respond to tactile stimuli with withdrawal maneuvers. Lungs have rhonchi and crackles throughout. Heart rate regular. Abdomen soft. Mental status is significantly obtunded. Extremities have some scattered age-related skin changes and minimal bruising but no rash or edema noted. Assessment and Plan
--- NOTE | 2021-09-25 08:31 | XR_ITS ---
PROCEDURE: XR CHEST PORTABLE CLINICAL HISTORY: intubation COMPARISON: No exams were available for comparison FINDINGS: 8:41 a.m.. Endotracheal tube has been placed. The tip is near the ostium of the right mainstem bronchus and should be withdrawn approximately 5 cm. Airspace disease in the left upper lobe left lower lobe and right lower lobe once again noted slightly improved in the right lung base. Right IJ catheter is present with tip in the region the SVC. Cardiomegaly. No acute bony abnormalities. IMPRESSION: Interval placement of endotracheal tube with the tip low at the ostium of the right mainstem bronchus. ICU nurse Etta was notified of the above findings by telephone 09/25/2021 at 8:58 a.m. Bilateral airspace disease slightly improved on the right Dictated by: Stevenson Davis MD 09/25/2021 09:02 Stevenson Davis MD in OV 09/25/2021 09:02
--- NOTE | 2021-09-25 08:55 | PC.NURSE ---
Vent settings 500, PEEP of 10, rate of 18, and 100% per Dr. Redd
--- NOTE | 2021-09-25 09:01 | PC.NURSE ---
pt intubated by Mala GEOTHERM[employer] OPERATIONS MANAGER @ 0822. #8 ET used and is @ [address] Davis called @ 0900 and ordered to pull ET tube back 5cm. RT (Bel) @ BS.
--- NOTE | 2021-09-25 09:03 | XR_ITS ---
PROCEDURE: XR CHEST PORTABLE CLINICAL HISTORY: ET pulled back 5cm COMPARISON: CT CT CHEST WO CON from 09/20/2021 CR XR CHEST PORTABLE from 09/23/2021 CR XR CHEST PORTABLE from 09/25/2021 CR XR CHEST PORTABLE from 09/25/2021 FINDINGS: 9:12 a.m. Endotracheal tube has been withdrawn and is now in good position 4 cm above the myesha. Right IJ CVL tip in the region the SVC. Nasogastric tube is now present. The tip is in the region the body of the stomach. No change bilateral airspace disease. IMPRESSION: Endotracheal tube, right IJ CVL, and NG tube all in good position. No change bilateral airspace disease Dictated by: Stevenson Davis MD 09/25/2021 09:34 Stevenson Davis MD in OV 09/25/2021 09:34
--- NOTE | 2021-09-25 09:05 | PC.NURSE ---
inserted right nare NG tube 58cm at the nare.
--- NOTE | 2021-09-25 09:50 | ECG_ITS ---
APPROVED REPORT Exam: Resting ECG HR:91 bpm ECG Measurements Heart Rate 91 AXES NJ 172 P 60 QRSd 110 QRS 28 QT 392 T 125 QTc 482 Conclusion Sinus rhythm with premature supraventricular complexes with occasional premature ventricular complexes Marked ST abnormality, possible inferior subendocardial injury Prolonged QT Abnormal ECG Electronically signed by : Rory Redd MD 09/26/2021 21:40:20
[2021-09-25 09:55] LABS: ABG Base Excess -6.2 mmol/L (-2.4-2.3); ABG HCO3 21.1 mmhg (22.0-26.0); ABG Oxygen Saturation 99 % (90-100); ABG PCO2 49.7 mmhg (35.0-45.0); ABG PH 7.25 mmol/L (7.35-7.45); ABG PO2 284.4 mmhg (80-100); ABG TCO2 22.6 mmhg (23-27)
[2021-09-25 09:59] LABS: Allen's Test ACCEPTABLE; Oxygen 100 %; PEEP 10; Source Right Radial; Tidal Volume 500; Vent Rate 18
--- NOTE | 2021-09-25 10:12 | DIET.NUTRFU ---
Pt reintubated, day 5 NPO, extubated before TFs were initiated and was unable to tolerate PO intake after extubation. Recommend initiating TFs per MD order if unable to extubate next 24h. He is currently receiving IVF with D5. Hypernatremia of 158, K low at 3.2, Mag high 2.5. BG moderate-high avg. 250. Weight is stable.
[2021-09-25 11:06] LABS: ABG Base Excess -6.6 mmol/L (-2.4-2.3); ABG HCO3 20.9 mmhg (22.0-26.0); ABG Oxygen Saturation 99 % (90-100); ABG PH 7.24 mmol/L (7.35-7.45); ABG PO2 280.8 mmhg (80-100); ABG TCO2 22.4 mmhg (23-27)
[2021-09-25 11:14] LABS: Oxygen 100 %; Tidal Volume 500; Vent Rate 18
[2021-09-25 11:15] LABS: ABG PCO2 50.3 mmhg (35.0-45.0); Allen's Test acceptable; PEEP 10; Source rr
--- NOTE | 2021-09-25 11:20 | PC.NURSE ---
RESP CARE NOTE: FIO2 decreased to 60% per Dr Redd t/o. Will monitor. 1120 09/25/2021
[2021-09-25 13:03] LABS: POC Glucose,Bedside 302 (70-110)
--- NOTE | 2021-09-25 14:51 | ECG_ITS ---
APPROVED REPORT Exam: Resting ECG HR:120 bpm ECG Measurements Heart Rate 120 AXES QRSd 92 QRS 17 QT 336 T 118 QTc 474 Conclusion Atrial fibrillation with rapid ventricular response Septal infarct, age undetermined Marked ST abnormality, possible inferior subendocardial injury Abnormal ECG Electronically signed by : Rory Redd MD 09/26/2021 21:39:33
--- NOTE | 2021-09-25 14:59 | PC.NURSE ---
pt appears to be in Afib on tele. EKG confirmed Afib RVR with rate 120s. Dr. Redd updated. He ordered Cardizem 10mg bolus now and to start gtt. Orders faxed to pharmacy.
--- NOTE | 2021-09-25 15:10 | PC.NURSE ---
Cardizem 10mg bolus IV given and gtt started @ 5mg/hr. Afib continues with rate 100-120s.
--- NOTE | 2021-09-25 16:59 | PC.NURSE ---
Afib with rate 100-110 continues. Cardizem gtt increased to 10mg/hr.
[2021-09-25 17:01] LABS: POC Glucose,Bedside 332 (70-110)
[2021-09-25 17:13] LABS: Anion Gap 14.3 mEq/L (5-15); Blood Urea Nitrogen 43 mg/dl (9-20); Calcium 8.9 mg/dl (8.4-10.2); Carbon Dioxide 23 mmol/L (22.0-30.0); Chloride 118 mmol/L (98-107); Creatinine Clearance Estimated 46 mL/min (50-200); Estimated Glomerular Filt Rate 39 ml/min (>60); GFR (African American) 47 ML/MIN (>60); Glucose 368 mg/dl (74-100); Potassium 3.3 mmoL/L (3.5-5.1)
[2021-09-25 17:19] LABS: Sodium 152 mmol/L (136-145)
--- NOTE | 2021-09-25 17:21 | PC.NURSE ---
received call from lab reporting Na 152. Name and verified. Dr. Redd @ BS and has been updated.
--- NOTE | 2021-09-25 18:46 | PC.NURSE ---
BP 113/57. Levo gtt decreased to 20mcg/min.
--- NOTE | 2021-09-25 23:02 | PC.NURSE ---
Levophed increased to 22mcg, BP 84/41
[2021-09-26] VITALS (29 sets, daily range): BP systolic 100–118; BP diastolic 46–59; PULSE 60–90; RESP 18–27; TEMP 35.9–37.6; O2SAT 95–100; BMI 30.4
[2021-09-26 01:34] LABS: POC Glucose,Bedside 257 (70-110)
--- NOTE | 2021-09-26 06:00 | XR_ITS ---
PROCEDURE INFORMATION: Exam: XR Chest Exam date and time: 09/26/2021 6:00 AM Age: 81 years old Clinical indication: Device placement; Ett placement (vent status); Additional info: Daily while intubated TECHNIQUE: Imaging protocol: XR of the chest. Views: 1 view. COMPARISON: CR XR CHEST PORTABLE 09/25/2021 9:12 AM FINDINGS: Tubes, catheters and devices: Endotracheal tube terminates approximately 4 cm above the myesha. NG tube passes into the stomach. Right IJ central venous catheter terminates in the region of the superior cavoatrial junction. Lungs: Slightly worsened bibasilar airspace opacities. Pleural spaces: Probable small left effusion. No pneumothorax. Heart/Mediastinum: Unremarkable. No cardiomegaly. Bones/joints: Unremarkable. Intraperitoneal space: There is a sliver of gas projecting in the region of the right upper quadrant of the abdomen. IMPRESSION: 1. Query small volume pneumoperitoneum. This could be further evaluated with CT abdomen pelvis. 2. Endotracheal tube terminates approximately 4 cm above the myesha. 3. Mild interval worsening of bibasilar airspace opacities.
[2021-09-26 06:26] LABS: POC Glucose,Bedside 261 (70-110)
[2021-09-26 06:26] LABS: POC Glucose,Bedside 255 (70-110)
--- NOTE | 2021-09-26 07:02 | PC.NURSE ---
Received call from [facility] for report of patient's chest xray this morning. Area projecting over upper abdomen, suspicious of gas, possible free air in abdomen. Radiologist strongly suggests obtaining a CT of abdomen/pelvis to correlate or rule out. Dr. Redd paged at this time to notify him of results. Awaiting call back.
--- NOTE | 2021-09-26 07:06 | PC.NURSE ---
Spoke to Dr Redd at this time. Informed him of radiologists interpretation of chest xray. No new orders given.
[2021-09-26 07:23] LABS: Basophils # 0.1 K/mm3 (0-0.2); Basophils % 0.3 % (0.1-2.0); Eosinophils # 0.1 K/mm3 (0.0-0.4); Eosinophils % 0.3 % (0.1-12.0); Hematocrit 34.6 % (42.0-52.0); Hemoglobin 10.6 g/dL (14.1-18.0); Lymphocytes # 1.3 K/mm3 (0.7-4.5); Lymphocytes % 6.1 % (10-50); Mean Corpuscular HGB Conc 30.7 g/dL (31.8-35.4); Mean Corpuscular Hemoglobin 30.4 pg (27.0-31.2); Mean Corpuscular Volume 99.1 fl (80-94); Mean Platelet Volume 9.8 fl (7.4-10.4); Monocytes # 1.3 K/mm3 (0.1-1.0); Monocytes % 5.8 % (1.7-9.3); Neutrophils # 18.8 K/mm3 (1.8-7.8); Neutrophils % 87.5 % (37.0-80.0); Platelet Count 412 K/mm3 (142-424); Red Blood Count 3.49 M/mm3 (4.60-6.20); Red Cell Distribution Width 15.3 % (11.5-17.5); White Blood Count 21.5 K/mm3 (4.8-10.8)
[2021-09-26 07:26] LABS: MANUAL DIFFERENTIAL MANUAL DIFFERENTIAL (MANUAL DIFF)
[2021-09-26 07:43] LABS: Alanine Aminotransferase 28 U/L (12-78); Albumin Level 2.7 g/dl (3.5-5.0); Albumin/Globulin Ratio 0.9 (1.1-1.8); Alkaline Phosphatase 128 U/L (38-126); Anion Gap 15.3 mEq/L (5-15); Aspartate Amino Transferase 101 U/L (17-59); Bilirubin,Total 0.3 mg/dl (0.2-1.3); Blood Urea Nitrogen 47 mg/dl (9-20); Calcium 8.6 mg/dl (8.4-10.2); Carbon Dioxide 23 mmol/L (22.0-30.0); Chloride 114 mmol/L (98-107); Creatinine Clearance Estimated 39 mL/min (50-200); Estimated Glomerular Filt Rate 32 ml/min (>60); GFR (African American) 39 ML/MIN (>60); Globulin 3.1 g/dL (1.3-3.2); Glucose 397 mg/dl (74-100); Potassium 3.3 mmoL/L (3.5-5.1); Sodium 149 mmol/L (136-145); Total Protein,Serum 5.8 g/dl (6.3-8.2)
--- NOTE | 2021-09-26 07:59 | HMH.ACPN2 ---
Internal Medicine - PN: Subj *Date: 09/26/21 *Time: 07:59 Interval history: Patient had an extremely eventful day yesterday. We intubated him yesterday because of significant acidosis, worsening hypoxia and significant problems with airway protection given his poor mental status. After intubation he had lots of mucous plugging evident that was suctioned from the ET tube with improvement of his oxygenation and ability to reduce his FiO2. Was still afflicted with a metabolic acidosis on repeat ABGs, we treated him with some saline infusions and bicarb which seemed to resolve the situation. He did have transient hypotension after the intubation, currently on low-dose Levophed drip with improvement in blood pressure. Remains on propofol and fentanyl. Also had a run of atrial fibrillation that was treated with intravenous Cardizem, now resolved into the 90s with a sinus rhythm. Exam Vital signs and Labs for Last 24 Hours: Temp Pulse Resp BP Pulse Ox 99.6 F 81 18 112/57 L 98 09/26/21 04:00 09/26/21 06:52 09/26/21 06:52 09/26/21 06:52 09/26/21 06:52 Laboratory Results - last 24 hr 09/24/21 20:09: POC Glucose 257 H 09/25/21 09:40: Specimen Source Right radial, O2 % 100, ABG pH 7.25 L, ABG pCO2 49.7 H, ABG pO2 284.4 H, ABG HCO3 21.1 L, ABG Total CO2 22.6 L, ABG O2 Saturation 99, ABG Base Excess -6.2 L, Stevenson Test Acceptable, Vent Rate 18, Tidal Volume 500, PEEP 10 09/25/21 11:04: Specimen Source rr, O2 % 100, ABG pH 7.24 L*, ABG pCO2 50.3 H, ABG pO2 280.8 H, ABG HCO3 20.9 L, ABG Total CO2 22.4 L, ABG O2 Saturation 99, ABG Base Excess -6.6 L, Stevenson Test acceptable, Vent Rate 18, Tidal Volume 500, PEEP 10 09/25/21 12:56: POC Glucose 302 H* 09/25/21 16:45: Sodium 152 H*, Potassium 3.3 L, Chloride 118 H, Carbon Dioxide 23, Anion Gap 14.3, BUN 43 H D, Creatinine 1.70 H D, Estimated Creat Clear 46, Estimated GFR 39 L, Est GFR ( Amer) 47 L D, Glucose 368 H D, Calcium 8.9 09/25/21 16:53: POC Glucose 332 H* 09/25/21 20:06: POC Glucose 255 H 09/26/21 05:30: WBC 21.5 H*, RBC 3.49 L, Hgb 10.6 L, Hct 34.6 L, MCV 99.1 H, MCH 30.4, MCHC 30.7 L, RDW 15.3, Plt Count 412, MPV 9.8, Neut % (Auto) 87.5 H, Lymph % (Auto) 6.1 L, [place] % (Auto) 5.8, Eos % (Auto) 0.3, Baso % (Auto) 0.3, Neut # (Auto) 18.8 H, Lymph # (Auto) 1.3, [place] # (Auto) 1.3 H, Eos # (Auto) 0.1, Baso # (Auto) 0.1 09/26/21 05:30: Sodium 149 H, Potassium 3.3 L, Chloride 114 H, Carbon Dioxide 23, Anion Gap 15.3 H, BUN 47 H, Creatinine 2.00 H, Estimated Creat Clear 39, Estimated GFR 32 L, Est GFR ( Amer) 39 L, Glucose 397 H, Calcium 8.6, Total Bilirubin 0.3, AST 101 H D, ALT 28, Alkaline Phosphatase 128 H, Total Protein 5.8 L, Albumin 2.7 L, Globulin 3.1, Albumin/Globulin Ratio 0.9 L 09/26/21 05:33: POC Glucose 261 H I & O for Last 24 hours: Intake & Output 09/23/21 09/24/21 09/25/21 09/26/21 11:59 11:59 11:59 11:59 Intake Total 2993 / 2993 3206 / 3206 5152.458 / 5152.458 Output Total 3285 / 3285 3700 / 3700 3690 / 3800 800 / 800 Balance -292 / -292 -3700 / -3700 -484 / -594 4352.458 / 4352.458 Weight 208 lb 5.389 oz 206 lb 6 oz 206 lb 4 oz 205 lb 4.8 oz Microbiology Reports for the Last 24 Hours: Microbiology 09/20/21 19:53 Blood Blood Culture - Final NO GROWTH AFTER 5 DAYS 09/20/21 17:00 Blood Blood Culture - Final NO GROWTH AFTER 5 DAYS 09/25/21 08:49 Sputum - Endotracheal Tube Aspirate Gram Stain - Final Narrative: Patient is intubated, sedated, NG tube in place. Rhonchorous lungs bilaterally but symmetric air entry. Abdomen is soft, no bruising. No rebound or guarding. Extremities are warm and well-perfused. Neurologic exam not reliable secondary sedation. ENT exam otherwise clear. Heart rate regular. No murmurs. Assessment and Plan (1) Acute kidney injury Status: Acute Category: Medical Code(s): N17.9 - Acute kidney failure, unspecified (2) Acute respiratory nai
[2021-09-26 08:45] LABS: Lymphocytes % 7 % (10-50); Monocytes % 5 % (2-9); Neutrophils % 88 % (42-76); Total Cells Counted 100
[2021-09-26 08:46] LABS: Platelet Estimate Slight Increase
[2021-09-26 08:47] LABS: Hypochromasia 1+
[2021-09-26 09:19] LABS: ABG Base Excess -5.4 mmol/L (-2.4-2.3); ABG HCO3 21.3 mmhg (22.0-26.0); ABG Oxygen Saturation 97 % (90-100); ABG PH 7.28 mmol/L (7.35-7.45); ABG PO2 117.9 mmhg (80-100); ABG TCO2 22.7 mmhg (23-27); Oxygen 60 %; PEEP 10; Tidal Volume 500; Vent Rate 18
[2021-09-26 09:20] LABS: Allen's Test ACCEPTABLE; Source R RADIAL
[2021-09-26 17:58] LABS: POC Glucose,Bedside 381 (70-110)
[2021-09-26 20:25] LABS: POC Glucose,Bedside 422 (70-110)
[2021-09-26 20:25] LABS: POC Glucose,Bedside 399 (70-110)
[2021-09-26 22:00] LABS: Vancomycin,Trough 21.1 ug/mL (5.0-10.0)
--- NOTE | 2021-09-26 22:20 | PC.NURSE ---
Spoke with Linda from [facility] about Vanc trough of 21.1. She will change time for administration to 0200.
[2021-09-26 23:28] LABS: Adenovirus,PCR Not Detected (NotDetected); Bordetella Pertussis Not Detected (NotDetected); Chlamydophila Pneumoniae, PCR Not Detected (NotDetected); Coronavirus 229E Not Detected (NotDetected); Coronavirus NL63 Not Detected (NotDetected); Coronavirus OC43 Not Detected (NotDetected); Coronovirus HKU1,PCR Not Detected (NotDetected); Human Metapneumovirus Not Detected (NotDetected); Influenza A, PCR Not Detected (NotDetected); Influenza AH1, 2009 Not Detected (NotDetected); Influenza AH1, PCR Not Detected (NotDetected); Influenza AH3,PCR Not Detected (NotDetected); Influenza B, PCR Not Detected (NotDetected); Mycoplasma Pneumoniae, PCR Not Detected (NotDetected); Parainfluenza 1, PCR Not Detected (NotDetected); Parainfluenza 2, PCR Not Detected (NotDetected); Parainfluenza 3, PCR Not Detected (NotDetected); Parainfluenza 4, PCR Not Detected (NotDetected); Respiratory Syncytial Virus Not Detected (NotDetected)
[2021-09-27] VITALS (32 sets, daily range): BP systolic 106–150; BP diastolic 46–67; PULSE 67–100; RESP 18–22; TEMP 36–38.2; O2SAT 94–100; BMI 30.4; BMI 31.1
[2021-09-27 00:49] LABS: Rhinovirus/Enterovirus Detected (NotDetected)
--- NOTE | 2021-09-27 03:29 | PC.NURSE ---
Pt has remained off Diltiazem gtt this shift. HR currently 77. NSR. Vent settings are as follows: AC, FiO2 60%, TV 500, R 18, PEEP 10. Rhonchi noted to auscultation. VSS. Pt has remained afebrile. Levophed gtt infusing @ 14 mcg/min. Propofol @ 40 mcg/kg/min. Fentanyl @ 50 mcg/hr. D5 1/2 NS @ 50. FSBS was elevated early in shift. 422. Oral care, suctioning administered. Pt turned and repositioned. Bed bath given. Bed linens changed. Urine output has decreased this am. Total urine output thus far is 355. No other concerns at this time. Will continue to monitor.
[2021-09-27 05:16] LABS: POC Glucose,Bedside 329 (70-110)
[2021-09-27 05:27] LABS: Basophils # 0.1 K/mm3 (0-0.2); Basophils % 0.6 % (0.1-2.0); Eosinophils # 0.4 K/mm3 (0.0-0.4); Eosinophils % 1.8 % (0.1-12.0); Hemoglobin 10.1 g/dL (14.1-18.0); Lymphocytes % 5.1 % (10-50); Mean Corpuscular HGB Conc 30.7 g/dL (31.8-35.4); Mean Corpuscular Hemoglobin 30.2 pg (27.0-31.2); Mean Corpuscular Volume 98.4 fl (80-94); Mean Platelet Volume 9.6 fl (7.4-10.4); Monocytes # 0.7 K/mm3 (0.1-1.0); Monocytes % 3.7 % (1.7-9.3); Neutrophils % 88.8 % (37.0-80.0); Platelet Count 387 K/mm3 (142-424); Red Blood Count 3.36 M/mm3 (4.60-6.20); Red Cell Distribution Width 15.3 % (11.5-17.5); White Blood Count 20.3 K/mm3 (4.8-10.8)
[2021-09-27 05:38] LABS: MANUAL DIFFERENTIAL MANUAL DIFFERENTIAL (MANUAL DIFF)
[2021-09-27 05:47] LABS: Alanine Aminotransferase 25 U/L (12-78); Albumin Level 2.6 g/dl (3.5-5.0); Albumin/Globulin Ratio 0.8 (1.1-1.8); Alkaline Phosphatase 113 U/L (38-126); Anion Gap 13.1 mEq/L (5-15); Aspartate Amino Transferase 77 U/L (17-59); Blood Urea Nitrogen 58 mg/dl (9-20); Calcium 8.5 mg/dl (8.4-10.2); Carbon Dioxide 23 mmol/L (22.0-30.0); Chloride 113 mmol/L (98-107); Creatinine Clearance Estimated 27 mL/min (50-200); Estimated Glomerular Filt Rate 20 ml/min (>60); GFR (African American) 24 ML/MIN (>60); Globulin 3.1 g/dL (1.3-3.2); Glucose 386 mg/dl (74-100); Potassium 3.1 mmoL/L (3.5-5.1); Sodium 146 mmol/L (136-145); Total Protein,Serum 5.7 g/dl (6.3-8.2)
[2021-09-27 05:50] LABS: Bilirubin,Total 0.1 mg/dl (0.2-1.3)
--- NOTE | 2021-09-27 06:00 | XR_ITS ---
PROCEDURE INFORMATION: Exam: XR Chest Exam date and time: 09/27/2021 6:00 AM Age: 81 years old Clinical indication: Condition or disease; Other: Intubation; Additional info: Daily while intubated TECHNIQUE: Imaging protocol: XR of the chest. Views: 1 view. COMPARISON: CR XR CHEST PORTABLE 09/26/2021 5:04 AM FINDINGS: Tubes, catheters and devices: Stable tubes and catheter. Lungs: Stable ill-defined right greater than left lower lung infiltrates. Pleural spaces: Unremarkable. No pleural effusion. No pneumothorax. Heart/Mediastinum: Unremarkable. No cardiomegaly. Bones/joints: Unremarkable. IMPRESSION: Essentially stable appearance compared to the previous day, with findings above.
[2021-09-27 06:05] LABS: Eosinophils % 2 % (0-3); Lymphocytes % 8 % (10-50); Neutrophils % 90 % (42-76); Total Cells Counted 100
[2021-09-27 06:07] LABS: Macrocytosis 1+; Platelet Estimate Normal
--- NOTE | 2021-09-27 07:03 | HMH.ACPN2 ---
Internal Medicine - PN: Subj *Date: 09/27/21 *Time: 18:09 Interval history: 81-year-old male with acute hypoxemic respiratory failure. Required reintubation. Has been reintubated for 48 hours. Stable on current vent settings. Continues to require Levophed for hypotension. at bedside, updated of plan Exam Vital signs and Labs for Last 24 Hours: Temp Pulse Resp BP Pulse Ox 98.2 F 79 18 112/60 98 09/27/21 06:00 09/27/21 07:00 09/27/21 07:00 09/27/21 07:00 09/27/21 07:00 Laboratory Results - last 24 hr 09/26/21 05:30: WBC 21.5 H*, RBC 3.49 L, Hgb 10.6 L, Hct 34.6 L, MCV 99.1 H, MCH 30.4, MCHC 30.7 L, RDW 15.3, Plt Count 412, MPV 9.8, Neut % (Auto) 87.5 H, Lymph % (Auto) 6.1 L, [place] % (Auto) 5.8, Eos % (Auto) 0.3, Baso % (Auto) 0.3, Neut # (Auto) 18.8 H, Lymph # (Auto) 1.3, [place] # (Auto) 1.3 H, Eos # (Auto) 0.1, Baso # (Auto) 0.1, Total Counted 100, Neutrophils % (Manual) 88 H, Lymphocytes % (Manual) 7 L, Monocytes % (Manual) 5, Platelet Estimate Slight increase, Hypochromasia 1+ 09/26/21 05:30: Sodium 149 H, Potassium 3.3 L, Chloride 114 H, Carbon Dioxide 23, Anion Gap 15.3 H, BUN 47 H, Creatinine 2.00 H, Estimated Creat Clear 39, Estimated GFR 32 L, Est GFR ( Amer) 39 L, Glucose 397 H, Calcium 8.6, Total Bilirubin 0.3, AST 101 H D, ALT 28, Alkaline Phosphatase 128 H, Total Protein 5.8 L, Albumin 2.7 L, Globulin 3.1, Albumin/Globulin Ratio 0.9 L 09/26/21 06:00: Specimen Source R radial, O2 % 60, ABG pH 7.28 L, ABG pCO2 46.0 H, ABG pO2 117.9 H, ABG HCO3 21.3 L, ABG Total CO2 22.7 L, ABG O2 Saturation 97, ABG Base Excess -5.4 L, Stevenson Test Acceptable, Vent Rate 18, Tidal Volume 500, PEEP 10 09/26/21 11:53: POC Glucose 399 H* 09/26/21 16:32: POC Glucose 381 H* 09/26/21 19:44: POC Glucose 422 H* 09/26/21 20:45: Vancomycin Trough 21.1 H 09/26/21 23:20: Chlamy pneumoniae PCR Not detected, Adenovirus (PCR) Not detected, B. pertussis DNA (PCR) Not detected, Coronavirus OC43 (PCR) Not detected, Coronavirus HKU1 (PCR) Not detected, Coronavirus 229E (PCR) Not detected, Coronavirus NL63 (PCR) Not detected, Human Metapneumovir PCR Not detected, Influenza A (H1) PCR Not detected, Influ A (H1N1/09) PCR Not detected, Influenza A (H3) PCR Not detected, Influenza Type A (PCR) Not detected, Influenza Type B (PCR) Not detected, M. pneumoniae (PCR) Not detected, Parainfluenza 1 (PCR) Not detected, Parainfluenza 2 (PCR) Not detected, Parainfluenza 3 (PCR) Not detected, Parainfluenza 4 (PCR) Not detected, RSV (PCR) Not detected, Entero/Rhino (PCR) Detected A 09/27/21 05:00: POC Glucose 329 H* 09/27/21 05:15: WBC 20.3 H*, RBC 3.36 L, Hgb 10.1 L, Hct 33.0 L, MCV 98.4 H, MCH 30.2, MCHC 30.7 L, RDW 15.3, Plt Count 387, MPV 9.6, Neut % (Auto) 88.8 H, Lymph % (Auto) 5.1 L, [place] % (Auto) 3.7, Eos % (Auto) 1.8, Baso % (Auto) 0.6, Neut # (Auto) 18.0 H, Lymph # (Auto) 1.0, [place] # (Auto) 0.7, Eos # (Auto) 0.4, Baso # (Auto) 0.1, Total Counted 100, Neutrophils % (Manual) 90 H, Lymphocytes % (Manual) 8 L, Eosinophils % (Manual) 2, Platelet Estimate Normal, Macrocytosis 1+ 09/27/21 05:15: Sodium 146 H, Potassium 3.1 L, Chloride 113 H, Carbon Dioxide 23, Anion Gap 13.1, BUN 58 H, Creatinine 3.00 H D, Estimated Creat Clear 27, Estimated GFR 20 L, Est GFR ( Amer) 24 L D, Glucose 386 H, Calcium 8.5, Total Bilirubin 0.1 L, AST 77 H, ALT 25, Alkaline Phosphatase 113, Total Protein 5.7 L, Albumin 2.6 L, Globulin 3.1, Albumin/Globulin Ratio 0.8 L I & O for Last 24 hours: Intake & Output 09/24/21 09/25/21 09/26/21 09/27/21 23:59 23:59 23:59 23:59 Intake Total 1608 / 1608 4651 / 4651 4869.666 / 4869.666 1231 / 1231 Output Total 2750 / 3100 3110 / 3190 965 / 965 187 / 187 Balance -1142 / -1492 1541 / 1461 3904.666 / 3904.666 1044 / 1044 Weight 93.61 kg 93.553 kg 93.123 kg 93.123 kg - Constitutional no acute distress, obtunded - *Routine HEENT Exam Head: Present: normocephalic Eye: Present: PERRL (Pupils asymmetric, baseline) ENT: Present: mucous membrane
[2021-09-27 08:12] LABS: ABG Base Excess -6.6 mmol/L (-2.4-2.3); ABG HCO3 20.4 mmhg (22.0-26.0); ABG Oxygen Saturation 98 % (90-100); ABG PCO2 46.3 mmhg (35.0-45.0); ABG PH 7.26 mmol/L (7.35-7.45); ABG PO2 138.9 mmhg (80-100); ABG TCO2 21.8 mmhg (23-27)
[2021-09-27 08:13] LABS: Allen's Test Patient Unable; Oxygen 60 %; PEEP 10; Source Right Radial; Tidal Volume 500; Vent Rate 18
--- NOTE | 2021-09-27 08:52 | HMH.PHACONS ---
- Pharmacy Consult Date: 09/27/21 Time: 08:53 Referring provider: DR. GIFFORD Reason for Consult:: VANCOMYCIN LEVEL AND DOSING CHANGE Allergies and ADEs:: Allergies Allergy/AdvReac Type Severity Reaction Status Date / Time No Known Allergies Allergy Verified 09/20/21 15:48 Home Medications:: Home Medications Medication Instructions Recorded Confirmed Type Esomeprazole Magnesium [Nexium] 20 mg PO DAILY 12/15/17 09/20/21 History Insulin Aspart [Novolog] 38 unit SQ AC 12/15/17 09/21/21 History Insulin Degludec [Tresiba 28 unit SQ HS 12/15/17 09/21/21 History Flextouch U-100] Losartan Potassium [Cozaar 100mg 100 mg PO DAILY 12/15/17 09/20/21 History Tablets] hydroCHLOROthiazide [HCTZ 25mg 25 mg PO DAILY 12/15/17 09/20/21 History tab] Metformin HCl 500 mg PO DAILY 12/16/17 09/20/21 History Atorvastatin Calcium [Lipitor 40mg 40 mg PO HS 09/20/21 09/20/21 History Tab] Empagliflozin [Jardiance] 25 mg PO DAILY 09/20/21 09/20/21 History Sitagliptin Phosphate [Januvia 100 mg PO DAILY 09/20/21 09/20/21 History 100mg tablet] Latanoprost/Pf [Latanoprost 0.005% 1 drp OS HS 09/21/21 09/21/21 History Eye Drop] Height: 1.75 m Weight: 95.424 kg Laboratory Results:: Laboratory Results - last 24 hr 09/26/21 06:00: Specimen Source R radial, O2 % 60, ABG pH 7.28 L, ABG pCO2 46.0 H, ABG pO2 117.9 H, ABG HCO3 21.3 L, ABG Total CO2 22.7 L, ABG O2 Saturation 97, ABG Base Excess -5.4 L, Stevenson Test Acceptable, Vent Rate 18, Tidal Volume 500, PEEP 10 09/26/21 11:53: POC Glucose 399 H* 09/26/21 16:32: POC Glucose 381 H* 09/26/21 19:44: POC Glucose 422 H* 09/26/21 20:45: Vancomycin Trough 21.1 H 09/26/21 23:20: Chlamy pneumoniae PCR Not detected, Adenovirus (PCR) Not detected, B. pertussis DNA (PCR) Not detected, Coronavirus OC43 (PCR) Not detected, Coronavirus HKU1 (PCR) Not detected, Coronavirus 229E (PCR) Not detected, Coronavirus NL63 (PCR) Not detected, Human Metapneumovir PCR Not detected, Influenza A (H1) PCR Not detected, Influ A (H1N1/09) PCR Not detected, Influenza A (H3) PCR Not detected, Influenza Type A (PCR) Not detected, Influenza Type B (PCR) Not detected, M. pneumoniae (PCR) Not detected, Parainfluenza 1 (PCR) Not detected, Parainfluenza 2 (PCR) Not detected, Parainfluenza 3 (PCR) Not detected, Parainfluenza 4 (PCR) Not detected, RSV (PCR) Not detected, Entero/Rhino (PCR) Detected A 09/27/21 05:00: POC Glucose 329 H* 09/27/21 05:15: WBC 20.3 H*, RBC 3.36 L, Hgb 10.1 L, Hct 33.0 L, MCV 98.4 H, MCH 30.2, MCHC 30.7 L, RDW 15.3, Plt Count 387, MPV 9.6, Neut % (Auto) 88.8 H, Lymph % (Auto) 5.1 L, [place] % (Auto) 3.7, Eos % (Auto) 1.8, Baso % (Auto) 0.6, Neut # (Auto) 18.0 H, Lymph # (Auto) 1.0, [place] # (Auto) 0.7, Eos # (Auto) 0.4, Baso # (Auto) 0.1, Total Counted 100, Neutrophils % (Manual) 90 H, Lymphocytes % (Manual) 8 L, Eosinophils % (Manual) 2, Platelet Estimate Normal, Macrocytosis 1+ 09/27/21 05:15: Sodium 146 H, Potassium 3.1 L, Chloride 113 H, Carbon Dioxide 23, Anion Gap 13.1, BUN 58 H, Creatinine 3.00 H D, Estimated Creat Clear 27, Estimated GFR 20 L, Est GFR ( Amer) 24 L D, Glucose 386 H, Calcium 8.5, Total Bilirubin 0.1 L, AST 77 H, ALT 25, Alkaline Phosphatase 113, Total Protein 5.7 L, Albumin 2.6 L, Globulin 3.1, Albumin/Globulin Ratio 0.8 L 09/27/21 06:00: Specimen Source Right radial, O2 % 60, ABG pH 7.26 L, ABG pCO2 46.3 H, ABG pO2 138.9 H, ABG HCO3 20.4 L, ABG Total CO2 21.8 L, ABG O2 Saturation 98, ABG Base Excess -6.6 L, Stevenson Test Patient unable, Vent Rate 18, Tidal Volume 500, PEEP 10 Medical History: Reports:: Diabetes Mellitus Type 2, Hyperlipidemia, Hypertension Denies:: Cancer, Diabetes Mellitus Type 1, MRSA Assessment and Plan (1) Acute kidney injury Status: Acute Category: Medical Code(s): N17.9 - Acute kidney failure, unspecified (2) Acute respiratory failure with hypoxia Status: Acute Category: Medical Code(s): J96.01 - Acute respiratory failure with hypoxia (3)
--- NOTE | 2021-09-27 11:26 | DIET.NUTRFU ---
verbal order to initiate tube feeds received. Pt with worsening renal function and hyperglycemia. MAP>60, K low at 3.1, Na slightly elevated 146. He continues on high rate propofol providing significant additional kcal. He is currently receiving fluids from LR IVF, to be dc'd as TFs reach goal rate and water flushes added. Slow and low advancement of pulmocare most appropriate regimen. Will consider increasing goal rate and/or additional protein as tolerating with pt stability and decrease propofol. Note this is a change from original order, new regimen entered in order. Recommend initiating continuous tube feeding regimen of Pulmocare 1.5 and advancing once q 8h as tolerated to goal rate of 30ml/h. Pt currently meeting fluid needs through IVF. recommend dc IVF when TF at goal rate and adding water flushes of 189ml q 4h to meet additional fluid needs not provided by formula. This regimen provides 1080kcal(~1650kcal with propofol), 45g protein, 67g fat, 565g free water(1700ml total fluids with flushes) Will monitor pt tolerance, labs, fluids, meds to alter regimen as indicated.
[2021-09-27 11:58] LABS: POC Glucose,Bedside 326 (70-110)
--- NOTE | 2021-09-27 14:29 | PC.NURSE ---
[facility] contacted @ 1410, pt's GCS = 3, no reflexes noted. Pt has been of propofol now for 3.5 hours. Levophed has been weaned to 4 mcg/min. D/t pt's BUN [facility] will not be following pt. They do wish to still be contacted @ TOD.
[2021-09-27 18:54] LABS: POC Glucose,Bedside 347 (70-110)
--- NOTE | 2021-09-27 19:56 | PC.NURSE ---
Remains vented, FIO2 decreased to 50% per Dr. Almodovar. Pupils remain unchanged from initial assessment. No reflexes noted. Propofol has been off since around 1100 this morning. Levo weaned and turned off @ 1500. VSS. Fentanyl continues @ 50 mcg/hr. Oral care provided. Sucitioning performed Q2H, minimal secretions noted. Lungs diminished in BLL. Pt having freqent PVC's as day has progressed. Abdomen soft, hypoactive BS. Tube feeds initiated @ 20 mls/hr per geophysical laboratory director recs, tolerating well. GRV = 0. No BM this shift. Last to drain @ bedside w/ clear yellow urine. aware of dec in UOP. Pt turned Q2H. Heels floating. Family have been @ bedside this shift.
[2021-09-27 21:32] LABS: Anion Gap 11.6 mEq/L (5-15); Blood Urea Nitrogen 69 mg/dl (9-20); Calcium 8.5 mg/dl (8.4-10.2); Carbon Dioxide 23 mmol/L (22.0-30.0); Chloride 113 mmol/L (98-107); Creatinine Clearance Estimated 22 mL/min (50-200); Estimated Glomerular Filt Rate 16 ml/min (>60); GFR (African American) 20 ML/MIN (>60); Glucose 352 mg/dl (74-100); Potassium 3.6 mmoL/L (3.5-5.1); Sodium 144 mmol/L (136-145)
[2021-09-27 22:15] LABS: POC Glucose,Bedside 328 (70-110)
[2021-09-28] VITALS (33 sets, daily range): BP systolic 114–168; BP diastolic 48–80; PULSE 85–110; RESP 1–25; TEMP 37.1–38; O2SAT 94–99; BMI 31.7
--- NOTE | 2021-09-28 01:40 | PC.NURSE ---
He continues to be intubated. Per report, his sedation has been off since 1100 on 09/27/21. His HOB is elevated 30 degrees. He is being turned and repositioned q 2 hours. Oral care provided. Clear, thin secretions present. Gag reflex present with ETT suction. Facial grimacing present with oral care and movement of NG tube. He has been moving his left arm. Some movement of his right foot. Pupils unequal but is baseline and MD aware per report. F/C patent with yellow urine with sediment. He continues with pulmocare with plans to increase to goal of 30 at 0400 if residuals continue to be appropriate. He has been overbreathing the vent. Glucose was 328 at bedtime.
--- NOTE | 2021-09-28 06:00 | XR_ITS ---
PROCEDURE INFORMATION: Exam: XR Chest Exam date and time: 09/28/2021 6:00 AM Age: 81 years old Clinical indication: Device placement; Ett placement (vent status); Additional info: Daily while intubated TECHNIQUE: Imaging protocol: XR of the chest. Views: 1 view. COMPARISON: CR XR CHEST PORTABLE 09/27/2021 6:01 AM FINDINGS: Tubes, catheters and devices: Endotracheal tube terminates approximately 4.2 cm above the myesha. Right IJ central venous catheter terminates in the region of the superior cavoatrial junction. The NG tube appears to pass into the stomach. Lungs: Similar patchy bilateral airspace opacities. Pleural spaces: Query trace bilateral pleural effusions. No pneumothorax. Heart/Mediastinum: Unremarkable. No cardiomegaly. Bones/joints: Unremarkable. IMPRESSION: 1. Endotracheal tube terminates approximately 4.2 cm above the myesha. 2. Similar patchy bilateral airspace opacities with probable trace bilateral pleural effusions.
[2021-09-28 06:48] LABS: ABG HCO3 19.2 mmhg (22.0-26.0); ABG Oxygen Saturation 96 % (90-100); ABG PCO2 38.6 mmhg (35.0-45.0); ABG PH 7.31 mmol/L (7.35-7.45); ABG PO2 90.5 mmhg (80-100); ABG TCO2 20.4 mmhg (23-27)
[2021-09-28 06:52] LABS: Allen's Test Patient Unable; Oxygen 50 %; PEEP 10; Source Right Radial; Tidal Volume 500; Vent Rate 18
[2021-09-28 07:33] LABS: Basophils # 0.1 K/mm3 (0-0.2); Basophils % 0.4 % (0.1-2.0); Eosinophils # 0.2 K/mm3 (0.0-0.4); Eosinophils % 1.1 % (0.1-12.0); Hematocrit 30.6 % (42.0-52.0); Hemoglobin 9.4 g/dL (14.1-18.0); Lymphocytes % 6.3 % (10-50); Mean Corpuscular HGB Conc 30.6 g/dL (31.8-35.4); Mean Corpuscular Hemoglobin 29.5 pg (27.0-31.2); Mean Corpuscular Volume 96.5 fl (80-94); Mean Platelet Volume 9.8 fl (7.4-10.4); Monocytes # 0.6 K/mm3 (0.1-1.0); Monocytes % 3.4 % (1.7-9.3); Neutrophils # 14.8 K/mm3 (1.8-7.8); Neutrophils % 88.9 % (37.0-80.0); Platelet Count 330 K/mm3 (142-424); Red Blood Count 3.17 M/mm3 (4.60-6.20); Red Cell Distribution Width 15.5 % (11.5-17.5); White Blood Count 16.7 K/mm3 (4.8-10.8)
[2021-09-28 07:50] LABS: MANUAL DIFFERENTIAL MANUAL DIFFERENTIAL (MANUAL DIFF)
[2021-09-28 07:56] LABS: Alanine Aminotransferase 26 U/L (12-78); Albumin Level 2.4 g/dl (3.5-5.0); Albumin/Globulin Ratio 0.8 (1.1-1.8); Alkaline Phosphatase 111 U/L (38-126); Anion Gap 10.1 mEq/L (5-15); Aspartate Amino Transferase 102 U/L (17-59); Blood Urea Nitrogen 73 mg/dl (9-20); Calcium 8.7 mg/dl (8.4-10.2); Carbon Dioxide 22 mmol/L (22.0-30.0); Chloride 114 mmol/L (98-107); Creatinine Clearance Estimated 21 mL/min (50-200); Estimated Glomerular Filt Rate 15 ml/min (>60); GFR (African American) 18 ML/MIN (>60); Globulin 3.1 g/dL (1.3-3.2); Glucose 348 mg/dl (74-100); Potassium 3.1 mmoL/L (3.5-5.1); Sodium 143 mmol/L (136-145); Total Protein,Serum 5.5 g/dl (6.3-8.2)
[2021-09-28 08:01] LABS: Bilirubin,Total 0.1 mg/dl (0.2-1.3)
[2021-09-28 08:36] LABS: Eosinophils % 1 % (0-3); Hypochromasia 2+; Lymphocytes % 6 % (10-50); Macrocytosis 1+; Monocytes % 2 % (2-9); Neutrophils % 91 % (42-76); Platelet Estimate Normal; Total Cells Counted 100
--- NOTE | 2021-09-28 08:42 | HMH.ACPN2 ---
Internal Medicine - PN: Subj *Date: 09/28/21 *Time: 08:42 Interval history: Patient is intubated, sedated, on low-dose fentanyl. On the positive side Levophed has been able to be weaned off and patient's blood pressure has been stable. On the negative side urine output is dropped and his creatinine is increased. He has been making no efforts to over breathe the vent. Exam Vital signs and Labs for Last 24 Hours: Temp Pulse Resp BP Pulse Ox 99.5 F 104 H 20 147/61 H 96 09/28/21 02:00 09/28/21 06:39 09/28/21 06:39 09/28/21 06:39 09/28/21 06:39 Laboratory Results - last 24 hr 09/27/21 11:48: POC Glucose 326 H* 09/27/21 15:55: POC Glucose 347 H* 09/27/21 20:37: Sodium 144, Potassium 3.6, Chloride 113 H, Carbon Dioxide 23, Anion Gap 11.6, BUN 69 H, Creatinine 3.60 H, Estimated Creat Clear 22, Estimated GFR 16 L*, Est GFR ( Amer) 20 L, Glucose 352 H, Calcium 8.5 09/27/21 21:09: POC Glucose 328 H* 09/28/21 06:00: Specimen Source Right radial, O2 % 50, ABG pH 7.31 L, ABG pCO2 38.6, ABG pO2 90.5, ABG HCO3 19.2 L, ABG Total CO2 20.4 L, ABG O2 Saturation 96, ABG Base Excess -7.0 L, Stevenson Test Patient unable, Vent Rate 18, Tidal Volume 500, PEEP 10 09/28/21 06:20: WBC 16.7 H, RBC 3.17 L, Hgb 9.4 L, Hct 30.6 L, MCV 96.5 H, MCH 29.5, MCHC 30.6 L, RDW 15.5, Plt Count 330, MPV 9.8, Neut % (Auto) 88.9 H, Lymph % (Auto) 6.3 L, [place] % (Auto) 3.4, Eos % (Auto) 1.1, Baso % (Auto) 0.4, Neut # (Auto) 14.8 H, Lymph # (Auto) 1.0, [place] # (Auto) 0.6, Eos # (Auto) 0.2, Baso # (Auto) 0.1, Total Counted 100, Neutrophils % (Manual) 91 H, Lymphocytes % (Manual) 6 L, Monocytes % (Manual) 2, Eosinophils % (Manual) 1, Platelet Estimate Normal, Hypochromasia 2+, Macrocytosis 1+ 09/28/21 06:20: Sodium 143, Potassium 3.1 L, Chloride 114 H, Carbon Dioxide 22, Anion Gap 10.1, BUN 73 H, Creatinine 3.90 H, Estimated Creat Clear 21, Estimated GFR 15 L*, Est GFR ( Amer) 18 L*, Glucose 348 H, Calcium 8.7, Total Bilirubin 0.1 L, AST 102 H D, ALT 26, Alkaline Phosphatase 111, Total Protein 5.5 L, Albumin 2.4 L, Globulin 3.1, Albumin/Globulin Ratio 0.8 L I & O for Last 24 hours: Intake & Output 09/25/21 09/26/21 09/27/21 09/28/21 11:59 11:59 11:59 11:59 Intake Total 3206 / 3206 6092.458 / 6271.458 3061.208 / 3061.208 / Output Total 3690 / 3800 955 / 995 754 / 754 523 / 523 Balance -484 / -594 5137.458 / 5276.458 2307.208 / 2307.208 1489.208 / 1489.208 Weight 206 lb 4 oz 205 lb 4.8 oz 205 lb 4.817 oz 214 lb 6.4 oz Microbiology Reports for the Last 24 Hours: Microbiology 09/25/21 08:49 Sputum - Endotracheal Tube Aspirate Gram Stain - Final 09/25/21 08:49 Sputum - Endotracheal Tube Aspirate Sputum Culture - Preliminary 09/22/21 08:56 Blood Blood Culture - Final NO GROWTH AFTER 5 DAYS 09/22/21 08:20 Blood Blood Culture - Final NO GROWTH AFTER 5 DAYS Narrative: Intubated. Thick yellow secretions are being suctioned from the ET tube. Rhonchi in the chest bilaterally but symmetric air entry. Heart rate regular. Abdomen is soft, no bruising. Extremities are warm and well-perfused. Last catheter is draining clear yellow urine. Patient is intubated, NG tube in good position with tube feeds infusing Neurologic exam nonfocal but intubated and sedated. Assessment and Plan (1) Acute kidney injury Status: Acute Category: Medical Code(s): N17.9 - Acute kidney failure, unspecified (2) Acute respiratory failure with hypoxia Status: Acute Category: Medical Code(s): J96.01 - Acute respiratory failure with hypoxia (3) Community acquired pneumonia Status: Acute Qualifiers: Laterality: right Lung location: lower lobe of lung Qualified Code(s): J18.9 - Pneumonia, unspecified organism Category: Medical Code(s): J18.9 - Pneumonia, unspecified organism (4) Hypoxia Status: Acute Category: Medical Code(s): R09.02 - Hypoxem
[2021-09-28 17:07] LABS: POC Glucose,Bedside 264 (70-110)
[2021-09-28 20:32] LABS: POC Glucose,Bedside 247 (70-110)
[2021-09-29] VITALS (30 sets, daily range): BP systolic 120–165; BP diastolic 48–96; PULSE 85–103; RESP 6–29; TEMP 37.1–37.6; O2SAT 91–98; BMI 31.5
--- NOTE | 2021-09-29 01:27 | PC.NURSE ---
He continues to be intubated. Sedation is off. He has moved all of his extremities tonight. Facial grimaces with oral care. HOB elevated 30 degrees. Gag reflex present. No changes in vent settings this shift. F/c patent with yellow, clear urine.
[2021-09-29 05:05] LABS: Basophils # 0.1 K/mm3 (0-0.2); Basophils % 0.4 % (0.1-2.0); Eosinophils # 0.2 K/mm3 (0.0-0.4); Hematocrit 30.4 % (42.0-52.0); Hemoglobin 9.5 g/dL (14.1-18.0); Lymphocytes # 1.1 K/mm3 (0.7-4.5); Lymphocytes % 5.9 % (10-50); Mean Corpuscular HGB Conc 31.2 g/dL (31.8-35.4); Mean Corpuscular Hemoglobin 30.1 pg (27.0-31.2); Mean Corpuscular Volume 96.7 fl (80-94); Mean Platelet Volume 9.7 fl (7.4-10.4); Monocytes # 0.6 K/mm3 (0.1-1.0); Monocytes % 3.1 % (1.7-9.3); Neutrophils # 17.2 K/mm3 (1.8-7.8); Neutrophils % 89.5 % (37.0-80.0); Platelet Count 340 K/mm3 (142-424); Red Blood Count 3.14 M/mm3 (4.60-6.20); Red Cell Distribution Width 15.4 % (11.5-17.5); White Blood Count 19.3 K/mm3 (4.8-10.8)
[2021-09-29 05:10] LABS: MANUAL DIFFERENTIAL MANUAL DIFFERENTIAL (MANUAL DIFF)
[2021-09-29 05:11] LABS: Chloride 112 mmol/L (98-107); Potassium 3.2 mmoL/L (3.5-5.1); Sodium 144 mmol/L (136-145)
[2021-09-29 05:13] LABS: Alanine Aminotransferase 26 U/L (12-78); Aspartate Amino Transferase 84 U/L (17-59); Creatinine Clearance Estimated 21 mL/min (50-200); Estimated Glomerular Filt Rate 15 ml/min (>60)
[2021-09-29 05:14] LABS: Albumin Level 2.4 g/dl (3.5-5.0); Albumin/Globulin Ratio 0.8 (1.1-1.8); Alkaline Phosphatase 124 U/L (38-126); Anion Gap 15.2 mEq/L (5-15); Calcium 8.5 mg/dl (8.4-10.2); Carbon Dioxide 20 mmol/L (22.0-30.0); Globulin 3.2 g/dL (1.3-3.2); Total Protein,Serum 5.6 g/dl (6.3-8.2)
[2021-09-29 05:19] LABS: Bilirubin,Total 0.1 mg/dl (0.2-1.3); Glucose 282 mg/dl (74-100)
[2021-09-29 05:20] LABS: Blood Urea Nitrogen 81 mg/dl (9-20); GFR (African American) 19 ML/MIN (>60)
[2021-09-29 05:32] LABS: Eosinophils % 1 % (0-3); Lymphocytes % 4 % (10-50); Monocytes % 1 % (2-9); Neutrophils % 85 % (42-76); Total Cells Counted 100
[2021-09-29 05:33] LABS: Hypochromasia 1+; Platelet Estimate Normal; Rouleaux 3+
--- NOTE | 2021-09-29 06:00 | XR_ITS ---
PROCEDURE INFORMATION: Exam: XR Chest Exam date and time: 09/29/2021 6:00 AM Age: 81 years old Clinical indication: Device placement; Ett placement (vent status); Additional info: Daily while intubated TECHNIQUE: Imaging protocol: XR of the chest. Views: 1 view. COMPARISON: CR XR CHEST PORTABLE 09/28/2021 6:03 AM FINDINGS: Tubes, catheters and devices: Endotracheal tube terminates approximately 4.7 cm above the myesha. NG tube appears to pass into the stomach. Right IJ central venous catheter terminates in the region of the superior cavoatrial junction. Lungs: Similar patchy bilateral airspace opacities. Pleural spaces: Probable trace bilateral pleural effusions. No pneumothorax. Heart/Mediastinum: Unremarkable. No cardiomegaly. Bones/joints: Unremarkable. IMPRESSION: 1. Endotracheal tube terminates approximately 4.7 cm above the myesha. 2. Similar patchy bilateral airspace opacities, which may reflect some combination of atelectasis and pneumonia.
[2021-09-29 07:05] LABS: ABG Base Excess -7.5 mmol/L (-2.4-2.3); ABG HCO3 18.8 mmhg (22.0-26.0); ABG Oxygen Saturation 95 % (90-100); ABG PCO2 38.3 mmhg (35.0-45.0); ABG PH 7.31 mmol/L (7.35-7.45); ABG PO2 87.3 mmhg (80-100)
[2021-09-29 07:08] LABS: Oxygen 50% %; PEEP 10; Tidal Volume 500; Vent Rate 18
[2021-09-29 07:09] LABS: Allen's Test Patient Unable; Source Right Radial
--- NOTE | 2021-09-29 08:42 | HMH.ACPN2 ---
Internal Medicine - PN: Subj *Date: 09/29/21 *Time: 08:42 Interval history: Patient has been slightly more active over the past 24 hours with movement of arms. However he has been able to remain off propofol for sedation. He is overbreathing the vent but very shallowly. No open his eyes or response to communication attempts. Remains intubated and with an NG tube in place. Last catheter in place. Exam Vital signs and Labs for Last 24 Hours: Temp Pulse Resp BP Pulse Ox 99.3 F 99 H 6 L 157/79 H 96 09/29/21 04:00 09/29/21 06:15 09/29/21 06:47 09/29/21 06:15 09/29/21 06:47 Laboratory Results - last 24 hr 09/28/21 17:00: POC Glucose 264 H 09/28/21 19:37: POC Glucose 247 H 09/29/21 05:00: WBC 19.3 H, RBC 3.14 L, Hgb 9.5 L, Hct 30.4 L, MCV 96.7 H, MCH 30.1, MCHC 31.2 L, RDW 15.4, Plt Count 340, MPV 9.7, Neut % (Auto) 89.5 H, Lymph % (Auto) 5.9 L, [place] % (Auto) 3.1, Eos % (Auto) 1.0, Baso % (Auto) 0.4, Neut # (Auto) 17.2 H, Lymph # (Auto) 1.1, [place] # (Auto) 0.6, Eos # (Auto) 0.2, Baso # (Auto) 0.1, Total Counted 100, Neutrophils % (Manual) 85 H, Band Neutrophils % 9.0 H, Lymphocytes % (Manual) 4 L, Monocytes % (Manual) 1 L, Eosinophils % (Manual) 1, Platelet Estimate Normal, Hypochromasia 1+, [place] 3+ 09/29/21 05:00: Sodium 144, Potassium 3.2 L, Chloride 112 H, Carbon Dioxide 20 L, Anion Gap 15.2 H, BUN 81 H, Creatinine 3.80 H, Estimated Creat Clear 21, Estimated GFR 15 L*, Est GFR ( Amer) 19 L*, Glucose 282 H, Calcium 8.5, Total Bilirubin 0.1 L, AST 84 H, ALT 26, Alkaline Phosphatase 124, Total Protein 5.6 L, Albumin 2.4 L, Globulin 3.2, Albumin/Globulin Ratio 0.8 L 09/29/21 06:00: Specimen Source Right radial, O2 % 50%, ABG pH 7.31 L, ABG pCO2 38.3, ABG pO2 87.3, ABG HCO3 18.8 L, ABG Total CO2 20.0 L, ABG O2 Saturation 95, ABG Base Excess -7.5 L, Stevenson Test Patient unable, Vent Rate 18, Tidal Volume 500, PEEP 10 I & O for Last 24 hours: Intake & Output 09/26/21 09/27/21 09/28/21 09/29/21 11:59 11:59 11:59 11:59 Intake Total 6092.458 / 6271.458 3061.208 / 3061.208 2162.208 / 2162.208 3099.208 / 3099.208 Output Total 955 / 995 754 / 754 623 / 713 1167 / 1167 Balance 5137.458 / 5276.458 2307.208 / 2307.208 1539.208 / 2101.968 3636.208 / 1932.208 Weight 205 lb 4.8 oz 205 lb 4.817 oz 214 lb 6.4 oz 213 lb Microbiology Reports for the Last 24 Hours: Microbiology 09/25/21 08:49 Sputum - Endotracheal Tube Aspirate Gram Stain - Final 09/25/21 08:49 Sputum - Endotracheal Tube Aspirate Sputum Culture - Preliminary Narrative: Intubated. On low-dose fentanyl drip. Blood pressure acceptable off pressors. Heart rate regular. Lungs have rhonchorous vent sounds bilaterally with poor air entry in the bases. Abdomen soft, no bruising. No distention. Distal extremities warm and well-perfused. Last catheter draining clear yellow urine. Assessment and Plan (1) Acute kidney injury Status: Acute Category: Medical Code(s): N17.9 - Acute kidney failure, unspecified (2) Acute respiratory failure with hypoxia Status: Acute Category: Medical Code(s): J96.01 - Acute respiratory failure with hypoxia (3) Community acquired pneumonia Status: Acute Qualifiers: Laterality: right Lung location: lower lobe of lung Qualified Code(s): J18.9 - Pneumonia, unspecified organism Category: Medical Code(s): J18.9 - Pneumonia, unspecified organism (4) Hypoxia Status: Acute Category: Medical Code(s): R09.02 - Hypoxemia (5) Septic shock Status: Acute Category: Medical Code(s): A41.9 - Sepsis, unspecified organism; R65.21 - Severe sepsis with septic shock (6) Leukocytosis Status: Acute Category: Medical Code(s): D72.829 - Elevated white blood cell count, unspecified (7) RLL pneumonia Status: Acute Category: Medical Code(s): J18.1 - Lobar pneumonia, unspecified organism (8) Diabetes Status: Chronic Category: Medical Code(s): E11.9 - Type 2 di
[2021-09-29 20:11] LABS: POC Glucose,Bedside 223 (70-110)
[2021-09-30] VITALS (19 sets, daily range): BP systolic 101–140; BP diastolic 53–70; PULSE 80–107; RESP 22–33; TEMP 36.5–37.9; O2SAT 90–99; BMI 32.0
--- NOTE | 2021-09-30 02:50 | PC.NURSE ---
0100- Pt. has increased light brown secretions and coughing; o2 sat 86-88%; increased rr 32 and wob. ng residual 70 ml. Tube feed stopped at this time 0230- pt. o2 sat 94-95% with decreased wob and resp rate 22
[2021-09-30 03:09] LABS: Vancomycin,Trough 24.6 ug/mL (5.0-10.0)
--- NOTE | 2021-09-30 03:13 | PC.NURSE ---
critical vanc level at 24.6 . Pharmacy paged
--- NOTE | 2021-09-30 03:17 | PC.NURSE ---
Spoke with Linda [facility]. critical vanc results given. new orders to hold 3 AM vanc dose.
--- NOTE | 2021-09-30 06:00 | XR_ITS ---
PROCEDURE INFORMATION: Exam: XR Chest Exam date and time: 09/30/2021 6:00 AM Age: 81 years old Clinical indication: Device placement; Ett placement (vent status); Additional info: Daily xray while intubated TECHNIQUE: Imaging protocol: XR of the chest. Views: 1 view. COMPARISON: CR XR CHEST PORTABLE 09/29/2021 5:30 AM FINDINGS: Tubes, catheters and devices: ET tube and central venous catheter in good position. Lungs: Patchy bilateral infiltrates are unchanged. Pleural spaces: Unremarkable. No pleural effusion. No pneumothorax. Heart/Mediastinum: The heart is prominent. Bones/joints: Unremarkable. IMPRESSION: Stable patchy bilateral infiltrates
[2021-09-30 07:03] LABS: ABG Base Excess -5.9 mmol/L (-2.4-2.3); ABG HCO3 20.1 mmhg (22.0-26.0); ABG Oxygen Saturation 92 % (90-100); ABG PCO2 39.8 mmhg (35.0-45.0); ABG PH 7.32 mmol/L (7.35-7.45); ABG PO2 74.2 mmhg (80-100); ABG TCO2 21.4 mmhg (23-27)
[2021-09-30 07:03] LABS: POC Glucose,Bedside 207 (70-110)
[2021-09-30 07:04] LABS: Allen's Test Patient Unable; Oxygen 50 %; PEEP 10; Tidal Volume 500; Vent Rate 18
[2021-09-30 07:05] LABS: Source Right Radial
[2021-09-30 07:31] LABS: Basophils # 0.1 K/mm3 (0-0.2); Basophils % 0.2 % (0.1-2.0); Eosinophils # 0.1 K/mm3 (0.0-0.4); Eosinophils % 0.3 % (0.1-12.0); Hematocrit 29.8 % (42.0-52.0); Hemoglobin 9.2 g/dL (14.1-18.0); Lymphocytes # 0.9 K/mm3 (0.7-4.5); Lymphocytes % 3.6 % (10-50); Mean Corpuscular HGB Conc 30.9 g/dL (31.8-35.4); Mean Corpuscular Hemoglobin 29.7 pg (27.0-31.2); Mean Corpuscular Volume 96.2 fl (80-94); Mean Platelet Volume 10.1 fl (7.4-10.4); Neutrophils # 23.8 K/mm3 (1.8-7.8); Neutrophils % 91.9 % (37.0-80.0); Platelet Count 351 K/mm3 (142-424); Red Blood Count 3.09 M/mm3 (4.60-6.20); Red Cell Distribution Width 15.5 % (11.5-17.5); White Blood Count 25.9 K/mm3 (4.8-10.8)
[2021-09-30 07:33] LABS: MANUAL DIFFERENTIAL MANUAL DIFFERENTIAL (MANUAL DIFF)
[2021-09-30 07:38] LABS: Alanine Aminotransferase 24 U/L (12-78); Albumin Level 2.3 g/dl (3.5-5.0); Albumin/Globulin Ratio 0.7 (1.1-1.8); Alkaline Phosphatase 96 U/L (38-126); Anion Gap 9.1 mEq/L (5-15); Aspartate Amino Transferase 49 U/L (17-59); Bilirubin,Total 0.2 mg/dl (0.2-1.3); Calcium 8.7 mg/dl (8.4-10.2); Carbon Dioxide 24 mmol/L (22.0-30.0); Chloride 114 mmol/L (98-107); Creatinine Clearance Estimated 25 mL/min (50-200); Estimated Glomerular Filt Rate 18 ml/min (>60); GFR (African American) 22 ML/MIN (>60); Globulin 3.2 g/dL (1.3-3.2); Glucose 220 mg/dl (74-100); Potassium 3.1 mmoL/L (3.5-5.1); Sodium 144 mmol/L (136-145); Total Protein,Serum 5.5 g/dl (6.3-8.2)
[2021-09-30 07:57] LABS: Blood Urea Nitrogen 85 mg/dl (9-20)
--- NOTE | 2021-09-30 08:12 | HMH.PHACONS ---
- Pharmacy Consult Date: 09/30/21 Time: 08:12 Referring provider: BALTA Reason for Consult:: VANCOMYCIN DOSING ADJUSTMENT Allergies and ADEs:: Allergies Allergy/AdvReac Type Severity Reaction Status Date / Time No Known Allergies Allergy Verified 09/20/21 15:48 Home Medications:: Home Medications Medication Instructions Recorded Confirmed Type Esomeprazole Magnesium [Nexium] 20 mg PO DAILY 12/15/17 09/20/21 History Insulin Aspart [Novolog] 38 unit SQ AC 12/15/17 09/21/21 History Insulin Degludec [Tresiba 28 unit SQ HS 12/15/17 09/21/21 History Flextouch U-100] Losartan Potassium [Cozaar 100mg 100 mg PO DAILY 12/15/17 09/20/21 History Tablets] hydroCHLOROthiazide [HCTZ 25mg 25 mg PO DAILY 12/15/17 09/20/21 History tab] Metformin HCl 500 mg PO DAILY 12/16/17 09/20/21 History Atorvastatin Calcium [Lipitor 40mg 40 mg PO HS 09/20/21 09/20/21 History Tab] Empagliflozin [Jardiance] 25 mg PO DAILY 09/20/21 09/20/21 History Sitagliptin Phosphate [Januvia 100 mg PO DAILY 09/20/21 09/20/21 History 100mg tablet] Latanoprost/Pf [Latanoprost 0.005% 1 drp OS HS 09/21/21 09/21/21 History Eye Drop] Height: 1.75 m Weight: 98.146 kg Laboratory Results:: Laboratory Results - last 24 hr 09/29/21 20:04: POC Glucose 223 H 09/30/21 02:22: Vancomycin Trough 24.6 H 09/30/21 05:33: WBC 25.9 H* D, RBC 3.09 L, Hgb 9.2 L, Hct 29.8 L, MCV 96.2 H, MCH 29.7, MCHC 30.9 L, RDW 15.5, Plt Count 351, MPV 10.1, Neut % (Auto) 91.9 H, Lymph % (Auto) 3.6 L, [place] % (Auto) 4.0, Eos % (Auto) 0.3, Baso % (Auto) 0.2, Neut # (Auto) 23.8 H, Lymph # (Auto) 0.9, [place] # (Auto) 1.0, Eos # (Auto) 0.1, Baso # (Auto) 0.1 09/30/21 05:33: Sodium 144, Potassium 3.1 L, Chloride 114 H, Carbon Dioxide 24, Anion Gap 9.1, BUN 85 H, Creatinine 3.30 H, Estimated Creat Clear 25, Estimated GFR 18 L*, Est GFR ( Amer) 22 L, Glucose 220 H, Calcium 8.7, Total Bilirubin 0.2, AST 49 D, ALT 24, Alkaline Phosphatase 96, Total Protein 5.5 L, Albumin 2.3 L, Globulin 3.2, Albumin/Globulin Ratio 0.7 L 09/30/21 06:00: Specimen Source Right radial, O2 % 50, ABG pH 7.32 L, ABG pCO2 39.8, ABG pO2 74.2 L, ABG HCO3 20.1 L, ABG Total CO2 21.4 L, ABG O2 Saturation 92, ABG Base Excess -5.9 L, Stevenson Test Patient unable, Vent Rate 18, Tidal Volume 500, PEEP 10 09/30/21 06:04: POC Glucose 207 H Medical History: Reports:: Diabetes Mellitus Type 2, Hyperlipidemia, Hypertension Denies:: Cancer, Diabetes Mellitus Type 1, MRSA Assessment and Plan (1) Acute kidney injury Status: Acute Category: Medical Code(s): N17.9 - Acute kidney failure, unspecified (2) Acute respiratory failure with hypoxia Status: Acute Category: Medical Code(s): J96.01 - Acute respiratory failure with hypoxia (3) Community acquired pneumonia Status: Acute Qualifiers: Laterality: right Lung location: lower lobe of lung Qualified Code(s): J18.9 - Pneumonia, unspecified organism Category: Medical Code(s): J18.9 - Pneumonia, unspecified organism (4) Hypoxia Status: Acute Category: Medical Code(s): R09.02 - Hypoxemia (5) Septic shock Status: Acute Category: Medical Code(s): A41.9 - Sepsis, unspecified organism; R65.21 - Severe sepsis with septic shock (6) Leukocytosis Status: Acute Category: Medical Code(s): D72.829 - Elevated white blood cell count, unspecified (7) RLL pneumonia Status: Acute Category: Medical Code(s): J18.1 - Lobar pneumonia, unspecified organism (8) Diabetes Status: Chronic Category: Medical Code(s): E11.9 - Type 2 diabetes mellitus without complications (9) Delirium Status: Acute Category: Medical Code(s): R41.0 - Disorientation, unspecified (10) Hypernatremia Status: Acute Category: Medical Code(s): E87.0 - Hyperosmolality and hypernatremia (11) Viral pneumonia Status: Acute Category: Medical Code(s): J12.9 - Viral pneumonia, unspecified - Assessment and plan all Dx Assess
--- NOTE | 2021-09-30 08:36 | PC.NURSE ---
DNR signed and placed on chart. Pt's and son @ bedside, both agreeable to extubate patient. RT notified @ 0833 of extubation. Malika Branch,RT and Elias Strong,RT @ bedside @ 0840. Pt suctioned w/ in-line. Pt extubated @ 0844, placed on 15 L high flow nasal cannula w/ non-rebreather, sat currently 89-90%. Pt breathing about 35-40/min.
--- NOTE | 2021-09-30 08:48 | HMH.ACPN2 ---
Internal Medicine - PN: Subj *Date: 09/30/21 *Time: 08:48 Interval history: Overall patient is slightly improved, urine output remains good. He has been much more active, and has been overbreathing the ventilator and pulling about 300 mL tidal volume with a rate of about 26 on top of his assist-control ventilation. Son and are at bedside. We had a very long discussion about his wishes for ongoing terminal/invasive care. Exam Vital signs and Labs for Last 24 Hours: Temp Pulse Resp BP Pulse Ox 99.1 F 92 H 26 H 122/53 L 92 L 09/30/21 07:00 09/30/21 08:00 09/30/21 08:00 09/30/21 08:00 09/30/21 08:00 Laboratory Results - last 24 hr 09/29/21 20:04: POC Glucose 223 H 09/30/21 02:22: Vancomycin Trough 24.6 H 09/30/21 05:33: WBC 25.9 H* D, RBC 3.09 L, Hgb 9.2 L, Hct 29.8 L, MCV 96.2 H, MCH 29.7, MCHC 30.9 L, RDW 15.5, Plt Count 351, MPV 10.1, Neut % (Auto) 91.9 H, Lymph % (Auto) 3.6 L, [place] % (Auto) 4.0, Eos % (Auto) 0.3, Baso % (Auto) 0.2, Neut # (Auto) 23.8 H, Lymph # (Auto) 0.9, [place] # (Auto) 1.0, Eos # (Auto) 0.1, Baso # (Auto) 0.1 09/30/21 05:33: Sodium 144, Potassium 3.1 L, Chloride 114 H, Carbon Dioxide 24, Anion Gap 9.1, BUN 85 H, Creatinine 3.30 H, Estimated Creat Clear 25, Estimated GFR 18 L*, Est GFR ( Amer) 22 L, Glucose 220 H, Calcium 8.7, Total Bilirubin 0.2, AST 49 D, ALT 24, Alkaline Phosphatase 96, Total Protein 5.5 L, Albumin 2.3 L, Globulin 3.2, Albumin/Globulin Ratio 0.7 L 09/30/21 06:00: Specimen Source Right radial, O2 % 50, ABG pH 7.32 L, ABG pCO2 39.8, ABG pO2 74.2 L, ABG HCO3 20.1 L, ABG Total CO2 21.4 L, ABG O2 Saturation 92, ABG Base Excess -5.9 L, Stevenson Test Patient unable, Vent Rate 18, Tidal Volume 500, PEEP 10 09/30/21 06:04: POC Glucose 207 H I & O for Last 24 hours: Intake & Output 09/27/21 09/28/21 09/29/21 09/30/21 11:59 11:59 11:59 11:59 Intake Total 3061.208 / 3061.208 2162.208 / 2162.208 3099.208 / 3099.208 3892.292 / 3892.292 Output Total 754 / 754 623 / 713 1317 / 1527 1415 / 1415 Balance 2307.208 / 2307.208 1539.208 / 3311.648 4970.208 / 1297.818 2972.292 / 2477.292 Weight 205 lb 4.817 oz 214 lb 6.4 oz 213 lb 216 lb 6 oz Microbiology Reports for the Last 24 Hours: Microbiology 09/25/21 08:49 Sputum - Endotracheal Tube Aspirate Gram Stain - Final 09/25/21 08:49 Sputum - Endotracheal Tube Aspirate Sputum Culture - Preliminary Narrative: Patient's eyes are somewhat open. He is much more responsive to tactile stimuli, moving his arms. He is overbreathing the ventilator as noted. Lungs have rhonchorous sounds but symmetric. Heart rate regular. Abdomen soft and nontender. Extremities are warm and well-perfused. Last catheter draining clear yellow urine. Assessment and Plan (1) Acute kidney injury Status: Acute Category: Medical Code(s): N17.9 - Acute kidney failure, unspecified (2) Acute respiratory failure with hypoxia Status: Acute Category: Medical Code(s): J96.01 - Acute respiratory failure with hypoxia (3) Community acquired pneumonia Status: Acute Qualifiers: Laterality: right Lung location: lower lobe of lung Qualified Code(s): J18.9 - Pneumonia, unspecified organism Category: Medical Code(s): J18.9 - Pneumonia, unspecified organism (4) Hypoxia Status: Acute Category: Medical Code(s): R09.02 - Hypoxemia (5) Septic shock Status: Acute Category: Medical Code(s): A41.9 - Sepsis, unspecified organism; R65.21 - Severe sepsis with septic shock (6) Leukocytosis Status: Acute Category: Medical Code(s): D72.829 - Elevated white blood cell count, unspecified (7) RLL pneumonia Status: Acute Category: Medical Code(s): J18.1 - Lobar pneumonia, unspecified organism (8) Diabetes Status: Chronic Category: Medical Code(s): E11.9 - Type 2 diabetes mellitus without complications (9) Delirium Status: Acute Category: Medical Code(s): R41.0 - Disorientation, unspecified (
[2021-09-30 08:49] LABS: Lymphocytes % 6 % (10-50); Monocytes % 1 % (2-9); Neutrophils % 93 % (42-76); Total Cells Counted 100
[2021-09-30 08:50] LABS: Hypochromasia 2+; Platelet Estimate Normal
--- NOTE | 2021-09-30 11:34 | PC.NURSE ---
Bed bath given and linens changed. Heel protectors applied, heels floating as well. Oral care provided. Facial hair trimmed. Skin to coccyx area is intact, no s/s of breakdown noted. Preventative dressing applied. R IJ central line dressing changed using aespetic technique, all caps changed as well. He is currently lying in bed resting w/ eyes closed. Remain on non-rebreather, sat currently 99%. Resp rate now 22-26/min. @ bedside.
--- NOTE | 2021-09-30 18:38 | PC.NURSE ---
Pt resting w/ eyes closed. Remains on non-rebreather, sat mid 90's. Lungs w/ scat ronchi. Sinus on tely w/ frequent PVC's. VS remain stable. Pt turned Q2H. Oral care provided. Spoke w/ this afternoon via phone and updated on POC.
[2021-10-01] VITALS: BP 95/51; PULSE 83; RESP 20; TEMP 36.4; O2SAT 90
--- NOTE | 2021-10-01 02:45 | HMH.DEATH ---
Pronouncement Note - Date and Time of Date of : 10/01/21 Time of : 02:18 - Additional Data Confirmation of : no pulse, no respirations, no heart sounds, pupils fixed and dilated Family: contacted Attending/PCP notified?: Yes Attending physician: Rory Redd MD Was code activated?: No Autopsy requested?: No medical claims examiner notified?: No Organ bank notified?: Yes Advance directives: Yes
[2021-10-01 06:09] LABS: POC Glucose,Bedside 181 (70-110)
[2021-10-01 06:09] LABS: POC Glucose,Bedside 204 (70-110)
--- NOTE | 2021-10-01 15:19 | P.DN_ITS ---
Discharge Sum: Prov - Provider Primary care physician: Kelly Gonzalez APRN Visit Care Team Role Provider Type Kelly Gonzalez APRN Primary Care Provider Nurse Practitioner Shola Rankin MD Emergency Provider ER Physician Rory Redd MD Attending Provider Staff Physician Nestor Mullins MD Admit Provider Staff Physician Admitting clinician: Rory Redd Attending physician on admission: Rory Redd Consults: 09/21/21 08:10 Nutrition Consult [CONS] Routine Comment: Reason for Nutrition Consult: Tube Feeding, Initiate Pronouncing clinician: Nicholas Garcia Discharge Sum: Summary - Date and Time Date of admission: 09/20/21 18:39 Date of : 10/01/21 Time of : 02:18 - Hospital Course prior to Hospital Course Information: Patient had been admitted with community-acquired pneumonia, progressed to intubation in the emergency department because of respiratory acidosis and failure to practice airway. Patient initially improved and after 48 hours was extubated but has significant mental status changes, secretions and had to be reintubated. Bacterial cultures from sputum and blood were negative throughout his hospital course, PCR testing twice was negative for COVID-19 virus but was positive for rhino/enterovirus. The diagnosis of viral pneumonitis with ARDS was made. Patient progressed to multiorgan failure, kidney failure, and his family after consideration of his multiple medical problems, and his previously stated wishes not to be on artificial life support elected to pursue supportive/comfort care and he was extubated on the morning of 1122. He initially did fairly well but progressed to respiratory failure from his viral pneumonitis and at the date and time noted above. - Additional Data Confirmation of as documented by pronouncing clinician: no pulse, no respirations, no heart sounds, pupils fixed and dilated Family: contacted Attending/PCP notified?: Yes Attending physician: Rory Redd MD Was code activated?: No Autopsy requested?: No cloth examiner hand notified?: No Organ bank notified?: Yes Advance directives: Yes Hospice patient?: No
--- NOTE | 2021-10-07 13:57 | PC.NURSE ---
patient belongings left here. called family and left a voicemail for them to call back
== END 2021-10-01 10:38 | disposition expired | DRG 870 ==
LOC: UTC 15:16 → ER 15:51 → 2ND 09-21 07:24
PROVIDERS: Emergency Medicine; Internal Medicine Adolescent Medicine; Admitting Provider Family Medicine; Emergency Provider Emergency Medicine; PCP Nurse Practitioner Family; Visit Provider Internal Medicine Adolescent Medicine
DX: A41.9 Sepsis, unspecified organism (principal); R65.21 Severe sepsis with septic shock; G93.41 Metabolic encephalopathy; J12.9 Viral pneumonia, unspecified; J80 Acute respiratory distress syndrome; N17.9 Acute kidney failure, unspecified; E87.0 Hyperosmolality and hypernatremia; Z51.5 Encounter for palliative care; E11.9 Type 2 diabetes mellitus without complications; E66.9 Obesity, unspecified; E78.5 Hyperlipidemia, unspecified; I10 Essential (primary) hypertension; Z68.32 Body mass index [BMI] 32.0-32.9, adult; Z20.822 Contact with and (suspected) exposure to COVID-19; Z79.4 Long term (current) use of insulin; Z79.899 Other long term (current) drug therapy
CPT/HCPCS: 31500; 94002; 36556; 36415; 70450; 71045; 71046; 71250; 74176; 80048; 80053; 80202; 81001; 82803; 82962; 83605; 83735; 83880; 84484; 85007; 85025; 87040; 87070; 87205; 87486; 87581; 87632; 87798; 93005; 93308; 94003; 94640; 94660; 94760; 94761; 96365; 96366; 96367; 96375; 99285; C1751; C9803; J0692; J2543; J2704; U0003; U0005